=== PATIENT | male | born 1935 | race Hispanic/Latino ===

== ENCOUNTER 2017-08-18 13:00 | Emergency (ER) | payer MEDICARE ==
[2017-08-18 13:43] LABS: Basophils % (Auto) 0.5 % (0.0-1.8); Eosinophils # (Auto) 0.2 K/mm3 (0.0-0.4); Eosinophils % (Auto) 1.8 % (0.0-4.3); Hematocrit 34.3 % (35.5-45.6); Hemoglobin 11.1 gm/dl (11.8-15.2); Lymphocytes # (Auto) 0.9 K/mm3 (1.2-5.4); Lymphocytes % (Auto) 9.7 % (13.4-35.0); Mean Corpuscular HGB Conc 32 % (32-34); Mean Corpuscular Hemoglobin 29 pg (28-32); Mean Corpuscular Volume 90 fl (84-94); Monocytes # (Auto) 0.5 K/mm3 (0.0-0.8); Monocytes % (Auto) 5.6 % (0.0-7.3); Platelet Count 226 K/mm3 (140-440); Red Blood Count 3.83 M/mm3 (3.65-5.03); Red Cell Distribution Width 14.7 % (13.2-15.2)
[2017-08-18 13:59] LABS: Alanine Aminotransferase 7 units/L (7-56); Albumin 3.4 g/dL (3.9-5); BUN/Creatinine Ratio 26; Blood Urea Nitrogen 29 mg/dL (9-20); Calcium 8.8 mg/dL (8.4-10.2); Hemolysis Index 1
[2017-08-18 15:39] VITALS: BP 141/90
[2017-08-18] MEDS ORDERED: NACL 0.9% 1000 ML 1,500 ML IV ONE (16:20)
[2017-08-18 18:05] LABS: Bilirubin,Urine NEG (Negative); Blood,Urine SM (Negative); Color,Urine Red (Yellow); Hyaline Casts,Urine 1 /LPF; Protein,Urine <15 mg/dL mg/dL (Negative); Urobilinogen,Urine < 2.0 mg/dL (<2.0); WBC,Urine < 1.0 /HPF (0.0-6.0)
--- NOTE | 2017-08-18 19:07 | Emergency Department Report ---
- General Chief complaint: Weakness Stated complaint: WEAKNESS/DIZZY Time Seen by Provider: 08/18/17 16:13 Source: patient Mode of arrival: Wheelchair Limitations: No Limitations - History of Present Illness Initial comments: Has been having idiopathic vomiting and diarrhea for the past month. Patient has an appointment with a work checker next week to help work up this issue. His caregiver's concern about his weakness. Patient's normally able to ambulate with a walker, but patient felt too weak to do that earlier today. She is concerned that he could be dehydrated. Patient has no somatic complaints. He is requesting that he be sent home. - Related Data Home Medications Medication Instructions Recorded Confirmed Last Taken Lisinopril 20 mg PO DAILY 08/18/17 08/18/17 Unknown Allergies Allergy/AdvReac Type Severity Reaction Status Date / Time levofloxacin [From Levaquin] Allergy Unknown Verified 08/18/17 18:28 aspirin AdvReac Nausea Verified 08/18/17 13:09 unknown antibiotic AdvReac Unknown Uncoded 08/18/17 13:09 ED Review of Systems ROS: Stated complaint: WEAKNESS/DIZZY Other details as noted in HPI Comment: All other systems reviewed and negative Gastrointestinal: vomiting, diarrhea Neurological: weakness ED Past Medical Hx - Past Medical History Previous Medical History?: Yes Hx Hypertension: Yes - Social History Smoking Status: Current Every Day Smoker Substance Use Type: None - Medications Home Medications: Home Medications Medication Instructions Recorded Confirmed Last Taken Type Lisinopril 20 mg PO DAILY 08/18/17 08/18/17 Unknown History ED Physical Exam - General Limitations: No Limitations General appearance: alert, in no apparent distress - Head Head exam: Present: atraumatic, normocephalic - Eye Eye exam: Present: normal appearance - ENT ENT exam: Present: mucous membranes dry - Neck Neck exam: Present: normal inspection - Respiratory Respiratory exam: Present: normal lung sounds bilaterally. Absent: respiratory distress - Cardiovascular Cardiovascular Exam: Present: regular rate, normal rhythm, other (cap refill: 3s ). Absent: systolic murmur, diastolic murmur, rubs, gallop - GI/Abdominal GI/Abdominal exam: Present: soft. Absent: tenderness - Rectal Rectal exam: Present: deferred - Extremities Exam Extremities exam: Present: normal inspection (gross extremity strength 5/5) - Back Exam Back exam: Present: normal inspection - Neurological Exam Neurological exam: Present: alert, oriented X3 - Psychiatric Psychiatric exam: Present: normal affect, normal mood - Skin Skin exam: Present: warm, dry, intact, normal color. Absent: rash ED Course Vital Signs 08/18/17 08/18/17 13:09 15:38 Temperature 97.8 F Pulse Rate 68 66 Respiratory 18 16 Rate Blood Pressure 166/84 Blood Pressure 141/90 [Left] O2 Sat by Pulse 97 93 Oximetry ED Medical Decision Making - Lab Data Result diagrams: 08/18/17 13:18 08/18/17 13:18 - Medical Decision Making 82-year-old male with history of hypertension of present stool the ER with generalized weakness. Vitals stable presentation. Patient is well-appearing. Patient is clinical evidence of dehydration. Labs show BUN to creatinine ratio of 31. He was given IV fluids. Afterwards, patient felt improved. Educated patient on using protein shakes to help supplement his nutrition. He had a CT scan of his chest and pelvis last week, which was unremarkable. I do not see a reason to repeat it at this time. He'll follow-up with his work checker next week. He ambulated in the ER without difficulty. Clear for discharge. - Differential Diagnosis infection, electrolyte Abnormalities, dehydration, ACS, malignancy, cva Critical care attestation.: If time is entered above; I have spent that time in minutes in the direct care of this critically ill patient, excluding procedure time. ED Disposition Clinical Impression: Dehydration Disposition: DC-01 TO HOME OR SELFCARE Is pt being admited?: No Does the pt Need Aspirin: No Condition: Stable Instructions: Dehydration (ED) Additional Instructions: Please follow up with your work checker for further evaluation of your vomiting/diarrhea. Drink protein shakes like boost or ensure to help keep up your nutrition. Referrals: CALVIN ALEGRE MD [Primary Care Provider] - 3-5 Days
== END 2017-08-18 21:12 | disposition home or self-care (01) ==
LOC: ED 13:00
DX: E86.0 Dehydration (principal); I10 Essential (primary) hypertension; F17.200 Nicotine dependence, unspecified, uncomplicated; Z88.6 Allergy status to analgesic agent; Z88.8 Allergy status to other drugs, medicaments and biological substances
CPT/HCPCS: 36415; 80053; 81001; 85025; 96360; 99283; J7030

== ENCOUNTER 2020-02-18 17:19 | Inpatient (IN) | payer MEDICARE ==
--- NOTE | 2020-02-18 17:27 | Emergency Department Report ---
ED Neuro Deficit HPI - General Stated Complaint: POSS CVA Time Seen by Provider: 02/18/20 17:23 Source: patient, EMS, old records reviewed Mode of arrival: Stretcher Limitations: No Limitations - History of Present Illness Initial Comments: This is an 84-year-old male with history of hypertension, pulmonary fibrosis who presents with left-sided weakness. Since 5:30 AM this morning, patient's had difficulty walking left arm weakness and left leg weakness. He also has decreas ed sensation in the left upper and lower extremities. Daughter called EMS because she was concerned for stroke. Stroke or heart disease. He is allergic to aspirin. According to EMS report, patient has limited ability to ambulate at baseline. -: Sudden, This morning (5:30 AM) Location: left arm, left leg Presenting Symptoms: Present: Weak/Paralyzed One Side History of same: No Place: home Severity: moderate Improves With: time On Anticoagulants: No Context: sudden onset Associated Symptoms: other (Numbness weakness left-sided) - Related Data Home Medications: Home Medications Medication Instructions Recorded Confirmed Last Taken Lisinopril 20 mg PO DAILY 08/18/17 08/18/17 Unknown Allergies/Adverse Reactions: Allergies Allergy/AdvReac Type Severity Reaction Status Date / Time levofloxacin [From Levaquin] Allergy Unknown Verified 08/18/17 18:28 aspirin AdvReac Nausea Verified 08/18/17 13:09 unknown antibiotic AdvReac Unknown Uncoded 08/18/17 13:09 ED Review of Systems ROS: Stated complaint: POSS CVA Other details as noted in HPI Comment: All other systems reviewed and negative Constitutional: denies: fever, malaise Respiratory: denies: cough Cardiovascular: denies: chest pain Gastrointestinal: denies: abdominal pain, nausea, vomiting ED Past Medical Hx - Past Medical History Previous Medical History?: Yes Hx Hypertension: Yes Additional medical history: Pulmonary fibrosis - Social History Smoking Status: Current Every Day Smoker Substance Use Type: None - Medications Home Medications: Home Medications Medication Instructions Recorded Confirmed Last Taken Type Lisinopril 20 mg PO DAILY 08/18/17 08/18/17 Unknown History ED Neuro Physical Exam - General Limitations: No Limitations General appearance: alert, in no apparent distress Suspected Stroke: Yes - Head Head exam: Present: atraumatic, normocephalic - Eye Eye exam: Present: normal appearance - ENT ENT exam: Present: mucous membranes moist - Neck Neck exam: Present: normal inspection, full ROM - Respiratory Respiratory exam: Present: normal lung sounds bilaterally. Absent: respiratory distress, wheezes, rales, rhonchi - Cardiovascular Cardiovascular Exam: Present: regular rate, normal rhythm, normal heart sounds. Absent: systolic murmur, diastolic murmur, rubs, gallop - GI/Abdominal GI/Abdominal exam: Present: soft, normal bowel sounds. Absent: distended, tenderness, guarding, rebound - Rectal Rectal exam: Present: deferred - Extremities Exam Extremities exam: Present: normal inspection - Neurological Exam Neurological exam: Present: alert, oriented X3 - NIHSS Assessment Interval: Baseline 1a. Level of Consciousness: alert/keenly responsive 1b. LOC Questions: answers both correctly 1c. LOC Commands: performs tasks correctly 2. Best Gaze: normal 3. Visual: no visual loss 4. Facial Palsy: normal symmetrical movement 5b. Motor Arm Right: no drift 5a. Motor Arm Left: drift 6a. Motor Leg Left: some gravity effort 6b. Motor Leg Right: no drift 7. Limb Ataxia: present 1 limb 8. Sensory: mild/moderate sensory loss 9. Best Language: no aphasia 10. Dysarthria: normal 11. Extinction/Inattention: visual/tactile inattention Total Score: 6 Stroke Severity: Moderate Stroke - Psychiatric Psychiatric exam: Present: normal affect, normal mood - Skin Skin exam: Present: warm, dry, intact, normal color. Absent: rash ED Course Vital Signs 02/18/20 17:20 Temperature 97.8 F Pulse Rate 80 Respiratory 16 Rate Blood Pressure 161/83 O2 Sat by Pulse 100 Oximetry - Lab Data Result diagrams: 02/18/20 17:37 02/18/20 17:37 Lab Results 02/18/20 02/18/20 02/18/20 Range/Units 17:37 17:37 17:37 WBC 6.6 (4.5-11.0) K/mm3 RBC 3.79 (3.65-5.03) M/mm3 Hgb 11.6 L (11.8-15.2) gm/dl Hct 34.8 L (35.5-45.6) % MCV 92 (84-94) fl MCH 31 (28-32) pg MCHC 33 (32-34) % RDW 15.1 (13.2-15.2) % Plt Count 158 (140-440) K/mm3 Lymph % (Auto) 14.5 (13.4-35.0) % Clarke % (Auto) 6.7 (0.0-7.3) % Eos % (Auto) 1.8 (0.0-4.3) % Baso % (Auto) 0.7 (0.0-1.8) % Lymph # (Auto) 1.0 L (1.2-5.4) K/mm3 Clarke # (Auto) 0.4 (0.0-0.8) K/mm3 Eos # (Auto) 0.1 (0.0-0.4) K/mm3 Baso # (Auto) 0.0 (0.0-0.1) K/mm3 Seg Neutrophils % 76.3 H (40.0-70.0) % Seg Neutrophils # 5.1 (1.8-7.7) K/mm3 PT 12.9 (12.2-14.9) Sec. INR 0.95 (0.87-1.13) APTT 32.8 (24.2-36.6) Sec. Thrombin Time (15.1-19.6) Sec. Sodium 137 (137-145) mmol/L Potassium 4.9 (3.6-5.0) mmol/L Chloride 101.2 (98-107) mmol/L Carbon Dioxide 24 (22-30) mmol/L Anion Gap 17 mmol/L BUN 27 H (9-20) mg/dL Creatinine 1.7 H (0.8-1.3) mg/dL Estimated GFR 38 ml/min BUN/Creatinine Ratio 16 % Glucose 108 H (75-100) mg/dL Calcium 9.3 (8.4-10.2) mg/dL Troponin T < 0.010 (0.00-0.029) ng/mL 02/18/20 Range/Units 17:37 WBC (4.5-11.0) K/mm3 RBC (3.65-5.03) M/mm3 Hgb (11.8-15.2) gm/dl Hct (35.5-45.6) % MCV (84-94) fl MCH (28-32) pg MCHC (32-34) % RDW (13.2-15.2) % Plt Count (140-440) K/mm3 Lymph % (Auto) (13.4-35.0) % Clarke % (Auto) (0.0-7.3) % Eos % (Auto) (0.0-4.3) % Baso % (Auto) (0.0-1.8) % Lymph # (Auto) (1.2-5.4) K/mm3 Clarke # (Auto) (0.0-0.8) K/mm3 Eos # (Auto) (0.0-0.4) K/mm3 Baso # (Auto) (0.0-0.1) K/mm3 Seg Neutrophils % (40.0-70.0) % Seg Neutrophils # (1.8-7.7) K/mm3 PT (12.2-14.9) Sec. INR (0.87-1.13) APTT (24.2-36.6) Sec. Thrombin Time 16.0 (15.1-19.6) Sec. Sodium (137-145) mmol/L Potassium (3.6-5.0) mmol/L Chloride (98-107) mmol/L Carbon Dioxide (22-30) mmol/L Anion Gap mmol/L BUN (9-20) mg/dL Creatinine (0.8-1.3) mg/dL Estimated GFR ml/min BUN/Creatinine Ratio % Glucose (75-100) mg/dL Calcium (8.4-10.2) mg/dL Troponin T (0.00-0.029) ng/mL - EKG Data -: EKG Interpreted by Ia EKG shows normal: sinus rhythm, axis Rate: normal 02/18/20 18:16 EKG obtained 1759 EKG interpreted by ar Normal sinus rhythm rate 90 bpm normal axis prolonged TX interval prolonged QTC no ST elevation nonischemic T wave pattern - Radiology Data Radiology results: report reviewed CT BRAIN: WITHOUT CONTRAST INDICATION / CLINICAL INFORMATION: 84-year-old male. neuro deficits <6hrs or sx present upon awakening. No additional clinical information provided. COMPARISON: None available. FINDINGS: BRAIN/INTRACRANIAL STRUCTURES: Unenhanced CT images of the brain were obtained. There is no evidence of acute abnormality. Pronounced diffuse cerebral atrophy is present. Ventricles and sulci are very prominent in size. Extensive chronic white matter hypoattenuation is present throughout the cerebral hemispheres. There is no evidence of acute large vessel territory ischemic injury, hemorrhage, or mass. There are no abnormal extra-axial fluid collections. Chronic subcortical ischemic changes are present in the thalami and internal capsules bilaterally. Atherosclerotic vascular calcifications are present in the distal internal carotid arteries and vertebral arteries. EXTRACRANIAL STRUCTURES: Unremarkable. IMPRESSION: Pronounced chronic and age-related changes. - Medical Decision Making Prior to patient's arrival, code stroke was activated after receiving EMS report. After conferring with teleneurologist, instructional systems design consultant suspects lacunar infarct. Due to time of onset, patient is not a candidate for TPA therapy. Additionally due to history of dementia and nonambulatory status, thrombectomy is not a consideration. Secondly, patient's presentation is not indicative of large vessel occlusion. Teleneurologist recommended hospital admission for routine stroke treatment and evaluation. I have reviewed labs obtained. CBC chemistry within normal limits with exception of mild CKD. Patient also has normal coagulation profile. Patient is admitted to the hospitalist service in stable condition. Aspirin therapy held due to history of allergy. Antiplatelet therapy recommended by teleneurology consultation. Further treatment will be deferred to hospitalist colleague. - Thrombolytic Inclusion/Exclusion Thrombolytic Exclusion Criteria: Symptom Onset > 3 Hours Critical Care Time: Yes Critical care time in (mins) excluding proc time.: 40 Critical care attestation.: If time is entered above; I have spent that time in minutes in the direct care of this critically ill patient, excluding procedure time. 40 minutes of critical care time excluding procedures were used in the care of the patient. I came immediately to the bedside upon patient's arrival. I obtained history from EMS at the bedside. I discussed treatment plan with the nursing team members. I reviewed electronic record. I kept the family members informed. Patient required multiple interventions and reassessments. ED Disposition Clinical Impression: Acute CVA (cerebrovascular accident) Disposition: DC-09 OP ADMIT IP TO THIS HOSP Is pt being admited?: Yes Does the pt Need Aspirin: No Condition: Stable
--- NOTE | 2020-02-18 17:35 | Consultation ---
History of Present Illness History of present illness: [facility] Date of Service: 02/18/2020 17:13:02 Impression: Left-sided weakness/sensory loss Comments/Sign-Out: Patient presenting with left-sided weakness and sensory loss. Suspect lacunar infarct of the right hemispheric deep brain structures. Metrics: Last Known Well: 02/18/2020 03:00:00 [facility] Notification Time: 02/18/2020 17:13:02 Arrival Time: 02/18/2020 17:19:00 Stamp Time: 02/18/2020 17:13:02 Time First Login Attempt: 02/18/2020 17:16:00 Video Start Time: 02/18/2020 17:16:00 Symptoms: left-sided weakness NIHSS Start Assessment Time: 02/18/2020 17:21:00 Patient is not a candidate for Alteplase/Activase. Patient was not deemed candidate for Alteplase/Activase thrombolytics because of Last Well Known Above 4.5 Hours. Video End Time: 02/18/2020 17:27:00 CT head showed no acute hemorrhage or acute core infarct. Clinical Presentation is not Suggestive of Large Vessel Occlusive Disease. Patient's baseline functional status of dementia and nonambulatory would preclude thrombectomy in any case. ED Physician notified of diagnostic impression and management plan on 02/18/2020 17:33:00 Our recommendations are outlined below. Recommendations: Activate Stroke Protocol Admission/Order Set Stroke/Telemetry Floor Neuro Checks Bedside Swallow Eval DVT Prophylaxis IV Fluids, Normal Saline Head of Bed 30 Degrees Euglycemia and Avoid Hyperthermia (PRN Acetaminophen) Antiplatelet Therapy Recommended Routine Consultation with Inhouse Neurology for Follow up Care Sign Out: Discussed with Emergency Department Provider History of Present Illness: Patient is a 84 year old Male. Patient was brought by EMS for symptoms of left-sided weakness Patient with a history of dementia and HTN. He is non-ambulatory at baseline. He was last noted normal at 0300 by family. This morning on waking at 0530 he was noted to have left-sided weakness. He was also reported to have a fall. He denies speech/language changes, vision change, VACA, CP. Examination: BP(183/102), Pulse(68), Blood Glucose(94) 1A: Level of Consciousness - Alert; keenly responsive + 0 1B: Ask Month and Age - Could Not Answer Either Question Correctly + 2 1C: Blink Eyes & Squeeze Hands - Performs Both Tasks + 0 2: Test Horizontal Extraocular Movements - Normal + 0 3: Test Visual Estrada - No Visual Loss + 0 4: Test Facial Palsy (Use Grimace if Obtunded) - Minor paralysis (flat nasolabial fold, smile asymmetry) + 1 5A: Test Left Arm Motor Drift - Drift, but doesn't hit bed + 1 5B: Test Right Arm Motor Drift - No Drift for 10 Seconds + 0 6A: Test Left Leg Motor Drift - Drift, hits bed + 2 6B: Test Right Leg Motor Drift - No Drift for 5 Seconds + 0 7: Test Limb Ataxia (FNF/Heel-Machado) - No Ataxia + 0 8: Test Sensation - Mild-Moderate Loss: Less Sharp/More Dull + 1 9: Test Language/Aphasia - Normal; No aphasia + 0 10: Test Dysarthria - Normal + 0 11: Test Extinction/Inattention - No abnormality + 0 NIHSS Score: 7 Patient/Family was informed the Neurology Consult would happen via TeleHealth consult by way of interactive audio and video telecommunications and consented to receiving care in this manner. Due to the immediate potential for life-threatening deterioration due to underlying acute neurologic illness, I spent 30 minutes providing critical care. This time includes time for face to face visit via telemedicine, review of medical records, imaging studies and discussion of findings with providers, the patient and/or family. Dr Jose Enrique [facility] Case [id number] Medications and Allergies Allergies Allergy/AdvReac Type Severity Reaction Status Date / Time levofloxacin [From Levaquin] Allergy Unknown Verified 08/18/17 18:28 aspirin AdvReac Nausea Verified 08/18/17 13:09 unknown antibiotic AdvReac Unknown Uncoded 08/18/17 13:09 Home Medications Medication Instructions Recorded Confirmed Last Taken Type Lisinopril 20 mg PO DAILY 08/18/17 08/18/17 Unknown History
[2020-02-18 17:47] LABS: Basophils % (Auto) 0.7 % (0.0-1.8); Eosinophils # (Auto) 0.1 K/mm3 (0.0-0.4); Eosinophils % (Auto) 1.8 % (0.0-4.3); Hematocrit 34.8 % (35.5-45.6); Hemoglobin 11.6 gm/dl (11.8-15.2); Lymphocytes % (Auto) 14.5 % (13.4-35.0); Mean Corpuscular HGB Conc 33 % (32-34); Mean Corpuscular Volume 92 fl (84-94); Monocytes # (Auto) 0.4 K/mm3 (0.0-0.8); Monocytes % (Auto) 6.7 % (0.0-7.3); Platelet Count 158 K/mm3 (140-440); Red Blood Count 3.79 M/mm3 (3.65-5.03); Red Cell Distribution Width 15.1 % (13.2-15.2)
[2020-02-18 17:57] LABS: INR 0.95 (0.87-1.13)
[2020-02-18 17:58] LABS: Partial Thromboplastin Time 32.8 Sec. (24.2-36.6)
[2020-02-18 18:04] LABS: BUN/Creatinine Ratio 16; Blood Urea Nitrogen 27 mg/dL (9-20); Calcium 9.3 mg/dL (8.4-10.2); Hemolysis Index 7
--- NOTE | 2020-02-18 18:14 | Cat Scan Report ---
CT BRAIN: WITHOUT CONTRAST INDICATION / CLINICAL INFORMATION: 84-year-old male. neuro deficits <6hrs or sx present upon awakening. No additional clinical informati on provided. COMPARISON: None available. FINDINGS: BRAIN/INTRACRANIAL STRUCTURES: Unenhanced CT images of the brain were obtained. There is no evidence of acute abnormality. Pronounced diffuse cerebral atrophy is present. Ventricles and sulci are very prominent in size. Exte nsive chronic white matter hypoattenuation is present throughout the cerebral hemispheres. There is no evidence of acute large vessel territory ischemic injury, hemorrhage, or mass. There are no abnormal extra-axial fluid collections. Chronic subcortical ischemic changes are present in the thalami and internal capsules bilaterally. Atherosclerotic vascular calcifications are present in the distal internal carotid arteries and verte bral arteries. EXTRACRANIAL STRUCTURES: Unremarkable. IMPRESSION: Pronounced chronic and age-related changes. Notification: Emergency department ARTIE Macedo at [address] scans at this location are performed using dose reduction to ALARA by means of automated expos ure control. Signer Name: James Durand MD Signed: 02/18/2020 6:09 PM Workstation Name: [id number]
[2020-02-18] MEDS ORDERED: PROMETHAZINE 25 MG RECT SUPP PR PRN (18:20)
[2020-02-18] MEDS ORDERED: METOCLOPRAMIDE 10 MG TAB PO PRN (18:20)
[2020-02-18] MEDS ORDERED: ONDANSETRON 4 MG/2 ML INJ IV PRN (18:20)
[2020-02-18] MEDS ORDERED: MAGNESIUM HYDROXIDE (MOM) ORAL LIQD UDC PO PRN (18:20)
--- NOTE | 2020-02-18 18:20 | History and Physical Report ---
History of Present Illness Chief complaint: I feel weak History of present illness: 84 YO Male with Vascular Dementia, Cerebral Atherosclerosis on Antiplatelet therapy, Nicotine Dependence, HTN, Pulmonary Fibrosis presents to ED for evaluation. Patient states that she was in her usual state of health around bedtime at around 2100 hrs. and again upon awakening at around 0300 hrs. Patient also reports that she awoke again from sleep at approximately 0530 hrs. and was found to have left arm and leg weakness with difficulty ambulating. Patient also reports dense decrease sensation in the left upper and lower extr emities. EMS was notified and upon arrival the patient was found to have a neurologic deficit. A code stroke was called and the patient was transported to [facility] for further care and evaluation. Patient seen and evaluated in the emergency department. Lab and imaging studies were reviewed. Patient was found to have symptoms consistent with acute CVA. Patient placed in observation status and admitted to telemetry for further care and evaluation due to increased risk of worsening symptoms. Teleneurology was consulted in the ED and the patient was deemed not a candidate for TPA. Patient initiated on antiplatelet therapy. Patient denies fever, chills, chest pain, palpitations, productive cough, skin rash, recent ill contacts, trauma, or known exposure to COVID-19. All medication listed at time of admission has been reconciled. Advanced care planning conducted in the emergency department. No prior admission for review. Past History Past Medical History: hypertension, other (See HPI) Past Surgical History: No surgical history, Other (Reviewed) Social history: , smoking Family history: hypertension Medications and Allergies Allergies Allergy/AdvReac Type Severity Reaction Status Date / Time levofloxacin [From Levaquin] Allergy Unknown Verified 08/18/17 18:28 aspirin AdvReac Nausea Verified 08/18/17 13:09 unknown antibiotic AdvReac Unknown Uncoded 08/18/17 13:09 Home Medications Medication Instructions Recorded Confirmed Last Taken Type Lisinopril 20 mg PO DAILY 08/18/17 08/18/17 Unknown History Review of Systems Constitutional: no weight loss, no weight gain, no fever, no chills, no sweats Ears, nose, mouth and throat: no ear pain, no ear discharge, no tinnitis, no nasal discharge Cardiovascular: no chest pain, no orthopnea, no palpitations, no rapid/irregular heart beat, no edema, no syncope Respiratory: no cough, no cough with sputum, no excessive sputum, no shortness of breath, no dyspnea on exertion Gastrointestinal: no abdominal pain, no nausea, no vomiting, no diarrhea, no constipation Genitourinary Male: no hematuria, no flank pain, no discharge, no urinary frequency, no urinary hesitancy Rectal: no pain, no incontinence, no bleeding Musculoskeletal: no neck stiffness, no neck pain, no arm numbness/tingling, no low back pain, no leg numbness/tingling Integumentary: no rash, no pruritis, no redness, no sores, no jaundice, no boils Neurological: weakness, numbness, lack of coordination, change in speech, gait dysfunction, motor disturbance, no seizures, no syncope, no tremors Psychiatric: no memory loss, no change in sleep habits, no hypersomnia, no change in libido, no suicidal ideation Endocrine: no cold intolerance, no heat intolerance, no polyphagia, no excessive thirst, no polyuria Hematologic/Lymphatic: no easy bruising, no easy bleeding, no lymphadenopathy, no lymphedema Allergic/Immunologic: no urticaria, no wheezing, no anaphylaxis, no angioedema Exam - Constitutional Vitals: Temp Pulse Resp BP Pulse Ox 97.8 F 80 16 161/83 100 02/18/20 17:20 02/18/20 17:20 02/18/20 17:20 02/18/20 17:20 02/18/20 17:20 General appearance: Present: mild distress - EENT Eyes: Present: PERRL ENT: hearing intact, clear oral mucosa - Neck Neck: Present: supple, normal ROM - Respiratory Respiratory effort: normal Respiratory: bilateral: CTA - Cardiovascular Heart Sounds: Present: S1 & S2. Absent: rub, click - Extremities Extremities: pulses symmetrical, No edema Peripheral Pulses: within normal limits - Abdominal General gastrointestinal: Present: soft, non-tender, non-distended, normal bowel sounds Male genitourinary: Present: normal - Integumentary Integumentary: Present: clear, warm, dry - Musculoskeletal Musculoskeletal: left sided weakness - Psychiatric Psychiatric: appropriate mood/affect, intact judgment & insight - Neurologic Neurologic: CNII-XII intact, focal deficits, no moves all extremities, no gait normal HEART Score - HEART Score Troponin: Troponin T < 0.010 ng/mL (0.00-0.029) 02/18/20 17:37 Results - Labs CBC & Chem 7: 02/18/20 17:37 02/18/20 17:37 Labs: Abnormal lab results 02/18/20 02/18/20 Range/Units 17:37 17:37 Hgb 11.6 L (11.8-15.2) gm/dl Hct 34.8 L (35.5-45.6) % Lymph # (Auto) 1.0 L (1.2-5.4) K/mm3 Seg Neutrophils % 76.3 H (40.0-70.0) % BUN 27 H (9-20) mg/dL Creatinine 1.7 H (0.8-1.3) mg/dL Glucose 108 H (75-100) mg/dL Assessment and Plan - Patient Problems (1) Acute CVA (cerebrovascular accident) Current Visit: Yes Status: Acute Plan to address problem: CVA protocol: Admit to telemetry, CT head, neuro check, seizure precautions, aspiration precautions, fall precautions, physical therapy consulted, Occupational Therapy consulted, speech therapy consulted, antiplatelet therapy, lipid panel, statin therapy, teleneurology consulted in ED. (2) Nicotine dependence Current Visit: Yes Status: Acute Qualifiers: Nicotine product type: cigarettes Substance use status: in withdrawal Qualified Code(s): F17.213 - Nicotine dependence, cigarettes, with withdrawal Plan to address problem: Smoking cessation counseling, supportive care, behavior change counseling, +15 minutes (3) Pulmonary fibrosis Current Visit: Yes Status: Acute Plan to address problem: Supportive care, continue medical management, outpatient pulmonary follow-up, smoking cessation. (4) Hypertension Current Visit: Yes Status: Acute Plan to address problem: Monitor blood pressure every shift, continue medical management, permissive hypertension overnight. (5) Vascular dementia Current Visit: Yes Status: Acute Qualifiers: Dementia behavioral disturbance: without behavioral disturbance Qualified Code(s): F01.50 - Vascular dementia without behavioral disturbance Plan to address problem: Verbal prompting, verbal redirection, benzodiazepine therapy as clinically indicated. (6) Cerebral atherosclerosis Current Visit: Yes Status: Acute Plan to address problem: Supportive care, risk factor reduction, antiplatelet therapy. (7) DVT prophylaxis Current Visit: Yes Status: Acute Plan to address problem: SCD to bilateral lower extremities while in bed, (8) Advance care planning Current Visit: Yes Status: Acute Plan to address problem: Disease education conducted, prognosis discussed, patient is full code, patient knowledges understanding and agreement with care plan, +30 minutes
[2020-02-19] MEDS: CLOPIDOGREL 75 MG TAB PO SCH (09:56)
--- NOTE | 2020-02-19 13:11 | Progress Note ---
Assessment and Plan - Patient Problems (1) Acute CVA (cerebrovascular accident) Current Visit: Yes Status: Acute Plan to address problem: Patient has acute cerebrovascular accident Left hemiplegia improving Continue Plavix and aspirin (2) Hypertension Current Visit: Yes Status: Chronic Qualifiers: Hypertension type: essential hypertension Qualified Code(s): I10 - Essential (primary) hypertension Plan to address problem: Continue blood pressure medications and adjust medications (3) Acute kidney injury Current Visit: Yes Status: Acute Plan to address problem: IV fluids for now Secondary to vasomotor nephropathy (4) DVT prophylaxis Current Visit: Yes Status: Acute Plan to address problem: On heparin and GI prophylaxis Subjective Date of service: 02/19/20 Principal diagnosis: Acute CVA with left hemiplegia Interval history: 84 YO Male with Vascular Dementia, Cerebral Atherosclerosis on Antiplatelet the rapy, Nicotine Dependence, HTN, Pulmonary Fibrosis presents to ED for evaluation. Patient states that she was in her usual state of health around bedtime at around 2100 hrs. and again upon awakening at around 0300 hrs. Patient also reports that she awoke again from sleep at approximately 0530 hrs. and was found to have left arm and leg weakness with difficulty ambulating. Patient also reports dense decrease sensation in the left upper and lower extremities. EMS was notified and upon arrival the patient was found to have a neurologic deficit. A code stroke was called and the patient was transported to [facility] for further care and evaluation. Patient seen and evaluated in the emergency department. Lab and imaging studies were reviewed. Patient was found to have symptoms consistent with acute CVA. Patient placed in observation status and admitted to telemetry for further care and evaluation due to increased risk of worsening symptoms. Teleneurology was consulted in the ED and the patient was deemed not a candidate for TPA. Patient initiated on antiplatelet therapy. Patient denies fever, chills, chest pain, palpitations, productive cough, skin rash, recent ill contacts, trauma, or known exposure to COVID-19. All medication listed at time of admission has been reconciled. Ad vanced care planning conducted in the emergency department. No prior admission for review. 02/19/2020 patient has 3/5 power in the left upper extremity and 4/5 power in the left lower extremity patient is alert and oriented Objective - Constitutional Vitals: Vital Signs - 12hr 02/19/20 02/19/20 02/19/20 03:24 07:36 08:13 Temperature 98.0 F 97.3 F L Pulse Rate 56 L 51 L Respiratory 18 18 16 Rate Blood Pressure 138/72 140/66 O2 Sat by Pulse 97 98 98 Oximetry 02/19/20 12:00 Temperature Pulse Rate 69 Respiratory Rate Blood Pressure O2 Sat by Pulse Oximetry General appearance: Present: no acute distress, well-nourished - EENT Eyes: PERRL, EOM intact ENT: hearing intact, clear oral mucosa Ears: bilateral: normal - Neck Neck: supple, normal ROM - Respiratory Respiratory effort: normal Respiratory: bilateral: CTA - Breasts Breasts: normal - Cardiovascular Heart rate: 78 Rhythm: regular Heart Sounds: Present: S1 & S2. Absent: gallop, rub Extremities: pulses intact, No edema, normal color, Full ROM - Gastrointestinal General gastrointestinal: Present: soft, non-tender, non-distended, normal bowel sounds - Genitourinary Male genitourinary: normal - Integumentary Integumentary: clear, warm, dry - Musculoskeletal Musculoskeletal: strength equal bilaterally, left sided weakness (4/5 power in left lower extremity and 3/5 power in left upper extremity) - Neurologic Neurologic: focal deficits (Left hemiplegia with 4 x 5 power in left lower extremity and 3/5 power in the right left upper extremity otherwise alert and oriented), moves all extremities - Psychiatric Psychiatric: memory intact, appropriate mood/affect, intact judgment & insight - Labs CBC & Chem 7: 02/18/20 17:37 02/18/20 17:37 Labs: Abnormal lab results 02/18/20 02/18/20 02/18/20 Range/Units 17:37 17:37 18:12 Hgb 11.6 L (11.8-15.2) gm/dl Hct 34.8 L (35.5-45.6) % Lymph # (Auto) 1.0 L (1.2-5.4) K/mm3 Seg Neutrophils % 76.3 H (40.0-70.0) % BUN 27 H (9-20) mg/dL Creatinine 1.7 H (0.8-1.3) mg/dL Glucose 108 H (75-100) mg/dL POC Glucose 111 H (70-105) HEART Score - HEART Score Troponin: Troponin T < 0.010 ng/mL (0.00-0.029) 02/18/20 17:37
[2020-02-19] MEDS: SODIUM CHLORIDE 0.9% 1000 ML 1,000 ML IV SCH (14:12)
[2020-02-20] MEDS: SODIUM CHLORIDE 0.9% 1000 ML 1,000 ML IV SCH (01:08)
[2020-02-20] MEDS: CLOPIDOGREL 75 MG TAB PO SCH (10:12)
[2020-02-20] MEDS ORDERED: LORazepam 2 MG/ML VIAL IV SCH (10:30)
--- NOTE | 2020-02-20 11:53 | Magnetic Resonance Report ---
NONENHANCED MR SCAN OF THE BRAIN: INDICATION / CLINICAL INFORMATION: Left-sided weakness TECHNIQUE: Multiplanar, multisequence MR images of the brain obtained. COMPARISON: CT scan of the head from 02/18/2020 FINDINGS: BRAIN / INTRACRANIAL CONTENTS: Approximately centimeter sized subacute right basal ganglia infarction involving right thalamus and posterior limb of right internal capsule; infarction more than 12 level s old (increased T2 signal intensity) but less than 3 days old (low ADC value) no hemorrhagic changes Chronic lacunae are also seen in the right basal ganglia in the right globus pallidus and right putam en/external capsule. Increased signal intensity in the right cerebral peduncle and in the right side of mary probably due to subacute wallerian degeneration Chronic ischemic changes in the mary; confluent periventricular and deep hemispheric white matter hyp erintensities (Fazekas 3) due to chronic small vessel disease CRANIOCERVICAL JUNCTION: No significant abnormality. VASCULAR FLOW-VOIDS: No significant abnormality. ORBITS: No significant abnormality of visualized orbits. SINUSES / MASTOIDS: No significant abnormality of visualized sinuses and mastoid air cells. ADDITIONAL FINDINGS: None. IMPRESSION: Nonhemorrhagic subacute lacunar infarction in the right basal ganglia (thalamus extending towards the posterior limb of right internal capsule Signer Name: Bob Chery MD Signed: 02/20/2020 11:49 AM Workstation Name: [id number]
--- NOTE | 2020-02-20 13:46 | Vascular Lab Report ---
BILATERAL CAROTID DOPPLER ULTRASOUND INDICATION : stroke TECHNIQUE: Grayscale and color Doppler imaging performed through the neck. COMPARISON: None FINDINGS: Right: There is minimal partially calcified plaques in the carotid bulb and proximal ICA. Peak syst olic velocity in the CCA is 43 cm/s with end-diastolic velocity of 8 cm/s. Peak systolic velocity in the proximal ICA is 51 cm/s with end-diastolic velocity of 11 cm/s. ICA to CCA ratio is less than 2. There is antegrade flow in the ECA and the vertebral artery. Left: There is mild partially calcified plaques in the proximal ICA. Peak systolic velocity in the CC A is 49 cm/s with end-diastolic velocity of 12 cm/s. Peak systolic velocity in the proximal ICA is 70 cm/s with end-diastolic velocity of 25 cm/s. ICA to CCA ratio is less than 2. There is antegrade fl ow in the ECA and the vertebral artery. IMPRESSION: No hemodynamically significant stenosis by NASCET criteria. Doppler velocities indicate l ess than 50% luminal narrowing throughout both carotid systems. Signer Name: Richard Sahu Jr, MD Signed: 02/20/2020 1:42 PM Workstation Name: [id number]
--- NOTE | 2020-02-20 16:32 | Progress Note ---
Assessment and Plan - Patient Problems (1) Acute CVA (cerebrovascular accident) Current Visit: Yes Status: Acute Plan to address problem: Patient has acute cerebrovascular accident Left hemiplegia improving Continue Plavix and aspirin (2) Hypertension Current Visit: Yes Status: Chronic Qualifiers: Hypertension type: essential hypertension Qualified Code(s): I10 - Essential (primary) hypertension Plan to address problem: Continue blood pressure medications and adjust medications (3) DVT prophylaxis Current Visit: Yes Status: Acute Plan to address problem: On heparin and GI prophylaxis (4) Acute kidney injury Current Visit: Yes Status: Acute Plan to address problem: IV fluids for now Secondary to vasomotor nephropathy (5) Discharge planning issues Current Visit: Yes Status: Acute Plan to address problem: Patient may be discharged after neurology has seen the patient with home health and physical therapy and Occupational Therapy at home Subjective Date of service: 02/20/20 Principal diagnosis: Acute CVA with left-sided weakness Interval history: 84 YO Male with Vascular Dementia, Cerebral Atherosclerosis on Antiplatelet therapy, Nicotine Dependence, HTN, Pulmonary Fibrosis presents to ED for evaluation. Patient states that she was in her usual state of health around bedtime at around 2100 hrs. and again upon awakening at around 0300 hrs. Patient also reports that she awoke again from sleep at approximately 0530 hrs. and was found to have left arm and leg weakness with difficulty ambulating. Patient also reports dense decrease sensation in the left upper and lower extremities. EMS was notified and upon arrival the patient was found to have a neurologic deficit. A code stroke was called and the patient was transported to [facility] for further care and evaluation. Patient seen and evaluated in the emergency department. Lab and imaging studies were reviewed. Patient was found to have symptoms consistent with acute CVA. Patient placed in observation status and admitted to telemetry for further care and evaluation due to increased risk of worsening symptoms. Teleneurology was consulted in the ED and the patient was deemed not a candidate for TPA. Patient initiated on antiplatelet therapy. Patient denies fever, chills, chest pain, palpitations, productive cough, skin rash, recent ill contacts, trauma, or known exposure to COVID-19. All medication listed at time of admission has been reconciled. Advanced care planning conducted in the emergency department. No prior admissio n for review. 02/19/2020 patient has 3/5 power in the left upper extremity and 4/5 power in the left lower extremity patient is alert and oriented 02/20/2020 patient has good improvement in the left upper extremity and left lower extremity weakness Objective - Constitutional Vitals: Vital Signs - 12hr 02/20/20 02/20/20 02/20/20 07:48 08:00 08:17 Temperature 97.9 F Pulse Rate 64 Respiratory 18 Rate Blood Pressure 160/85 O2 Sat by Pulse 98 97 95 Oximetry 02/20/20 12:00 Temperature Pulse Rate 64 Respiratory Rate Blood Pressure O2 Sat by Pulse Oximetry General appearance: Present: no acute distress, well-nourished - EENT Eyes: PERRL, EOM intact ENT: hearing intact, clear oral mucosa Ears: bilateral: normal - Neck Neck: supple, normal ROM - Respiratory Respiratory effort: normal Respiratory: bilateral: CTA - Breasts Breasts: normal - Cardiovascular Heart rate: 78 Rhythm: regular Heart Sounds: Present: S1 & S2. Absent: gallop, rub Extremities: pulses intact, No edema, normal color, Full ROM - Gastrointestinal General gastrointestinal: Present: soft, non-tender, non-distended, normal bowel sounds - Genitourinary Male genitourinary: normal - Integumentary Integumentary: clear, warm, dry - Musculoskeletal Musculoskeletal: left sided weakness - Neurologic Neurologic: focal deficits (Left hemiparesis), moves all extremities - Psychiatric Psychiatric: memory intact, appropriate mood/affect, intact judgment & insight - Labs CBC & Chem 7: 02/18/20 17:37 02/18/20 17:37 HEART Score - HEART Score Troponin: Troponin T < 0.010 ng/mL (0.00-0.029) 02/18/20 17:37
[2020-02-21] MEDS ORDERED: SODIUM CHLORIDE 0.9% 1000 ML 1,000 ML IV SCH (08:00)
[2020-02-21] MEDS: LISINOPRIL 20 MG TAB PO SCH (09:56)
[2020-02-21] MEDS: CLOPIDOGREL 75 MG TAB PO SCH (09:57)
[2020-02-21] MEDS: METOPROLOL SUCCINATE XL 50 MG TAB PO SCH (09:57)
[2020-02-21] MEDS ORDERED: NON-FORMULARY EACH (Lisinopril 20 MG) PO SCH (10:00)
[2020-02-21] MEDS ORDERED: METOPROLOL TARTRATE 50 MG TAB PO SCH (10:00)
--- NOTE | 2020-02-21 14:07 | Progress Note ---
Assessment and Plan Assessment and plan: 84 YO Male with Vascular Dementia, Cerebral Atherosclerosis on Antiplatelet therapy, Nicotine Dependence, HTN, Pulmonary Fibrosis presents to ED for evaluation. Patient states that she was in her usual state of health around bedtime at around 2100 hrs. and again upon awakening at around 0300 hrs. Daysi gimenez also reports that she awoke again from sleep at approximately 0530 hrs. and was found to have left arm and leg weakness with difficulty ambulating. Patient also reports dense decrease sensation in the left upper and lower extremities. EMS was notified and upon arrival the patient was found to have a neurologic deficit. A code stroke was called and the patient was transported to [facility] for further care and evaluation. Patient seen and evaluated in the emergency department. Lab and imaging studies were reviewed. Patient was found to have symptoms consistent with acute CVA. Patient placed in observation status and admitted to telemetry for further care and evaluation due to increased risk of worsening symptoms. Teleneurology was consulted in the ED and the patient was deemed not a candidate for TPA. Patient initiated on antiplatelet therapy. Patient denies fever, chills, chest pain, palpitations, productive cough, skin rash, recent ill contacts, trauma, or known exposure to COVID-19. All medication listed at time of admission has been reconciled. Advanced care planning conducted in the emergency department. No prior admission for review. 02/19/2020 patient has 3/5 power in the left upper extremity and 4/5 power in the left lower extremity patient is alert and oriented 02/20/2020 patient has good improvement in the left upper extremity and left lower extremity weakness. PT evaluation pending. MRI brain shows subacute right basal ganglia infarct. Echo shows no PFO, shunt or stenosis. US doppler carotids negative for significant stenosis. 02/20. PT evaluation - rec subacute rehab. He has discomfort around the lower abdomen. Bladder scan showed residual volume of 400cc. Patient subesquently passed urine without intervention. I will start him on flomax for now. - Patient Problems -- Acute CVA (cerebrovascular accident) Current Visit: Yes Status: Acute Plan to address problem: Left hemiplegia improved MRI brain shows subacute infarct in the right basal ganglia. Echo - negative bubble study. Continue Plavix(patient is allergic to aspirin) and statins PT - recs subacute rehab Neurology evaluation CTA head and neck not done due to renal disease --Hypertension Current Visit: Yes Status: Chronic Qualifiers: Hypertension type: essential hypertension Qualified Code(s): I10 - Essential (primary) hypertension Plan to address problem: BP still elevated Added amlodipine today -- Acute kidney injury Current Visit: Yes Status: Acute Plan to address problem: IV fluids for now Secondary to vasomotor nephropathy --Systolic heart failure Current Visit: Yes Status: Acute Plan to address problem: Continue current management Afterload reduction with ACEI Toprol low dose Cardiology follow up after discharge -- DVT prophylaxis Current Visit: Yes Status: Acute Plan to address problem: On heparin and GI prophylaxis -- Discharge planning issues Current Visit: Yes Status: Acute Plan to address problem: Pending neurology evaluation History Interval history: Patient seen and examined at bedside. Could not get PT yesterday. Plan for PT today. He has some discomfort around the lower abdomen - will get a bladder scan. Hospitalist Physical - Constitutional Vitals: Temp Pulse Resp BP Pulse Ox 98.1 F 93 H 20 169/91 98 02/21/20 07:47 02/21/20 12:00 02/21/20 08:00 02/21/20 09:56 02/21/20 08:00 General appearance: Present: no acute distress, well-nourished - EENT Eyes: Present: PERRL - Respiratory Respiratory: bilateral: CTA - Cardiovascular Heart Sounds: Present: S1 & S2 - Extremities Extremities: No edema - Abdominal General gastrointestinal: soft, non-tender, non-distended, normal bowel sounds - Psychiatric Psychiatric: appropriate mood/affect - Allied Health Allied health notes reviewed: nursing, case management HEART Score - HEART Score Troponin: Troponin T < 0.010 ng/mL (0.00-0.029) 02/18/20 17:37 Results - Labs CBC & Chem 7: 02/18/20 17:37 02/18/20 17:37 Labs: Laboratory Last Values WBC 6.6 K/mm3 (4.5-11.0) 02/18/20 17:37 RBC 3.79 M/mm3 (3.65-5.03) 02/18/20 17:37 Hgb 11.6 gm/dl (11.8-15.2) L 02/18/20 17:37 Hct 34.8 % (35.5-45.6) L 02/18/20 17:37 MCV 92 fl (84-94) 02/18/20 17:37 MCH 31 pg (28-32) 02/18/20 17:37 MCHC 33 % (32-34) 02/18/20 17:37 RDW 15.1 % (13.2-15.2) 02/18/20 17:37 Plt Count 158 K/mm3 (140-440) 02/18/20 17:37 Lymph % (Auto) 14.5 % (13.4-35.0) 02/18/20 17:37 Gaines % (Auto) 6.7 % (0.0-7.3) 02/18/20 17:37 Eos % (Auto) 1.8 % (0.0-4.3) 02/18/20 17:37 Baso % (Auto) 0.7 % (0.0-1.8) 02/18/20 17:37 Lymph # (Auto) 1.0 K/mm3 (1.2-5.4) L 02/18/20 17:37 Gaines # (Auto) 0.4 K/mm3 (0.0-0.8) 02/18/20 17:37 Eos # (Auto) 0.1 K/mm3 (0.0-0.4) 02/18/20 17:37 Baso # (Auto) 0.0 K/mm3 (0.0-0.1) 02/18/20 17:37 Seg Neutrophils % 76.3 % (40.0-70.0) H 02/18/20 17:37 Seg Neutrophils # 5.1 K/mm3 (1.8-7.7) 02/18/20 17:37 PT 12.9 Sec. (12.2-14.9) 02/18/20 17:37 INR 0.95 (0.87-1.13) 02/18/20 17:37 APTT 32.8 Sec. (24.2-36.6) 02/18/20 17:37 Thrombin Time 16.0 Sec. (15.1-19.6) 02/18/20 17:37 Sodium 137 mmol/L (137-145) 02/18/20 17:37 Potassium 4.9 mmol/L (3.6-5.0) 02/18/20 17:37 Chloride 101.2 mmol/L (98-107) 02/18/20 17:37 Carbon Dioxide 24 mmol/L (22-30) 02/18/20 17:37 Anion Gap 17 mmol/L 02/18/20 17:37 BUN 27 mg/dL (9-20) H 02/18/20 17:37 Creatinine 1.7 mg/dL (0.8-1.3) H 02/18/20 17:37 Estimated GFR 38 ml/min 02/18/20 17:37 BUN/Creatinine Ratio 16 % 02/18/20 17:37 Glucose 108 mg/dL (75-100) H 02/18/20 17:37 POC Glucose 79 (70-105) 02/20/20 08:07 Calcium 9.3 mg/dL (8.4-10.2) 02/18/20 17:37 Troponin T < 0.010 ng/mL (0.00-0.029) 02/18/20 17:37 - Diagnostic Impressions Diagnostic Impressions: Echocardiogram 02/18/20 18:21 Transthoracic Echocardiogram Indication: Stroke BP: 128/77 HR: 86 Conclusions *The left ventricular size is mild to moderately dilated. *Mild concentric left ventricular hypertrophy is observed. *Global left ventricular systolic function is moderate to severely decreased. *The estimated ejection fraction is 30-35%. *There is mild dilatation of the ascending aorta which measures 4.5 cm. The aortic root size is normal. *There is mild aortic regurgitation. *There is mild mitral regurgitation. *There is mild tricuspid regurgitation. *There is evidence of mild pulmonary hypertension. *The right ventricular systolic pressure is calculated at 34 mmHg. *A patent foramen ovale is not demonstrated by agitated saline contrast. Findings Left Ventricle: The left ventricular size is mild to moderately dilated. Mild concentric left ventricular hypertrophy is observed. Global left ventricular systolic function is moderate to severely decreased. The estimated ejection fraction is 30-35%. Left Atrium: The left atrium is mildly dilated. Right Ventricle: The right ventricle is slightly dilated. The right ventricular global systolic function is normal. Right Atrium: The right atrial cavity size is normal. A patent foramen ovale is not demonstrated by agitated saline contrast. Aortic Valve: The aortic valve is trileaflet. The aortic valve leaflets are mildly thickened. There is mild aortic regurgitation. There is no evidence of aortic stenosis. Mitral Valve: The mitral valve leaflets are mildly thickened. There is mild mitral regurgitation. There is no evidence of mitral stenosis. Tricuspid Valve: There is mild tricuspid regurgitation. The right ventricular systolic pressure is calculated at 34 mmHg. There is evidence of mild pulmonary hypertension. Pulmonic Valve: There is mild pulmonic regurgitation. Pericardium: There is no pericardial effusion. Aorta: There is mild dilatation of the ascending aorta. There is no dilatation of the aortic root. Venous: The inferior vena cava appears normal in size. Contrast: Intravenous agitated saline contrast was used to assess intracardiac shunting. Measurements Chambers 2D Name Value Normal Range IVSd (2D) 1 cm (0.6 - 1.1) LVPWd (2D) 0.97 cm (0.6 - 1.1) LVIDd (2D) 4.88 cm (3.7 - 5.6) LVIDs (2D) 3.72 cm (2 - 3.8) LV FS (2D) 23.84 % - EF Teichholz (2D) 47.42 % - Ao root diameter (2D) 3.55 cm (2 - 3.7) Volumes/Mass Name Value Normal Range LA ESV SP 4CH (A/L) 17.82 ml - LA ESV SP 2CH (A/L) 33.01 ml - LA ESV BP (A/L) 26.94 ml - LA ESV BP (A/L) index 15.57 ml/m2 - LA ESV SP 4CH (MOD) 17.8 ml - LA ESV SP 2CH (MOD) 30.25 ml - LA ESV BP (MOD) 25.48 ml - LA ESV BP (MOD) index 14.73 ml/m2 - Aortic Valve Name Value Normal Range AV Vmax 0.98 m/sec - AV VTI 20.8 cm - AV peak gradient 3.87 mmHg - AV mean gradient 2.15 mmHg - LVOT diameter 2.14 cm - LVOT Vmax 0.77 m/sec - LVOT VTI 12.22 cm - LVOT peak gradient 2.38 mmHg - LVOT mean gradient 1.25 mmHg - SV LVOT 43.78 ml - JAIME (continuity Vmax) 2.81 cm2 - JAIME (continuity VTI) 2.1 cm2 - Ascending Ao 4.53 cm - Tricuspid Valve Name Value Normal Range TR Vmax 2.78 m/sec - TR peak gradient 31 mmHg - RAP 3 mmHg - RVSP 34 mmHg - Pulmonic Valve/Qp:Qs Name Value Normal Range PV Vmax 0.78 m/sec - PV peak gradient 2.4 mmHg - PV acceleration time 79.92 msec - Wolff/IV: Voiding Method Urinal IV Catheter Type [Left Forearm INT / Saline Lock ] IV Catheter Type [Right Peripheral IV Antecubital] Active Medications - Current Medications Current Medications: Generic Name Dose Route Start Last Admin Trade Name Freq PRN Reason Stop Dose Admin Acetaminophen 650 mg 02/18/20 18:20 Tylenol PO Q4H PRN Pain, Mild (1-3) Amlodipine Besylate 10 mg 02/21/20 15:00 Amlodipine PO QDAY CELE Atorvastatin Calcium 40 mg 02/18/20 22:00 02/20/20 21:24 Lipitor PO 40 mg QHS CELE Administration Bisacodyl 10 mg 02/18/20 18:20 Dulcolax KS QDAY PRN Constipation Clopidogrel Bisulfate 75 mg 02/19/20 10:00 02/21/20 09:57 Plavix PO 75 mg QDAY CELE Administration Sodium Chloride 1,000 mls @ 75 mls/hr 02/21/20 08:00 Nacl 0.9% 1000 Ml IV DIRECT CELE Lisinopril 20 mg 02/21/20 10:00 02/21/20 09:56 Zestril PO 20 mg QDAY CELE Administration Magnesium Hydroxide 30 ml 02/18/20 18:20 Milk Of Magnesia PO Q4H PRN Constipation Metoclopramide HCl 5 mg 02/18/20 18:20 Reglan PO Q6H PRN Nausea And Vomiting Metoprolol Succinate 50 mg 02/21/20 10:00 02/21/20 09:57 Metoprolol Xl PO 50 mg QDAY CELE Administration Ondansetron HCl 4 mg 02/18/20 18:20 Zofran IV Q8H PRN Nausea And Vomiting Promethazine HCl 25 mg 02/18/20 18:20 Phenergan KS Q6H PRN Nausea And Vomiting Sodium Chloride 10 ml 02/18/20 18:20 Sodium Chloride Flush Syringe 10 Ml IV PRN PRN LINE FLUSH
[2020-02-21] MEDS: amLODIPine 10 MG TAB PO SCH (14:21)
--- NOTE | 2020-02-21 14:39 | Consultation ---
History of Present Illness Consult date: 02/21/20 Requesting physician: LONDON MONTEMAYOR Reason for Consult: CVA Chief complaint: Left-sided weakness History of present illness: 84 yo male, right-handed, with htn, dementia, presented outside the tPA window with left-sided weakness. he also suffered a fall priro to arrival to the ED. Notes scar tissue of right eye. Notes "bladder pain" at present and continued left-sided weakness. Past History Past Medical History: hypertension, other (See HPI) Past Surgical History: No surgical history, Other (Reviewed) Social history: , smoking Family history: hypertension Medications and Allergies Allergies Allergy/AdvReac Type Severity Reaction Status Date / Time levofloxacin [From Levaquin] Allergy Unknown Verified 08/18/17 18:28 aspirin AdvReac Nausea Verified 08/18/17 13:09 unknown antibiotic AdvReac Unknown Uncoded 08/18/17 13:09 Home Medications Medication Instructions Recorded Confirmed Last Taken Type Lisinopril 20 mg PO DAILY 08/18/17 02/18/20 02/18/20 History Metoprolol [Lopressor TAB] 50 mg PO DAILY 02/18/20 02/18/20 02/18/20 History Ondansetron [Zofran ODT TAB] 8 mg PO Q8HR PRN 02/18/20 02/18/20 02/18/20 History Active Meds: Active Medications Acetaminophen (Tylenol) 650 mg PO Q4H PRN PRN Reason: Pain, Mild (1-3) Amlodipine Besylate (Amlodipine) 10 mg PO QDAY [facility] Last Admin: 02/21/20 14:21 Dose: 10 mg Documented by: Atorvastatin Calcium (Lipitor) 40 mg PO QHS [facility] Last Admin: 02/20/20 21:24 Dose: 40 mg Documented by: Bisacodyl (Dulcolax) 10 mg GA QDAY PRN PRN Reason: Constipation Clopidogrel Bisulfate (Plavix) 75 mg PO QDAY [facility] Last Admin: 02/21/20 09:57 Dose: 75 mg Documented by: Sodium Chloride (Nacl 0.9% 1000 Ml) 1,000 mls @ 75 mls/hr IV DIRECT CELE Lisinopril (Zestril) 20 mg PO QDAY [facility] Last Admin: 02/21/20 09:56 Dose: 20 mg Documented by: Magnesium Hydroxide (Milk Of Magnesia) 30 ml PO Q4H PRN PRN Reason: Constipation Metoclopramide HCl (Reglan) 5 mg PO Q6H PRN PRN Reason: Nausea And Vomiting Metoprolol Succinate (Metoprolol Xl) 50 mg PO QDAY CELE Last Admin: 02/21/20 09:57 Dose: 50 mg Documented by: Ondansetron HCl (Zofran) 4 mg IV Q8H PRN PRN Reason: Nausea And Vomiting Promethazine HCl (Phenergan) 25 mg GA Q6H PRN PRN Reason: Nausea And Vomiting Sodium Chloride (Sodium Chloride Flush Syringe 10 Ml) 10 ml IV PRN PRN PRN Reason: LINE FLUSH Review of Systems All systems: negative (as per HPI;) Physical Examination - Vital Signs Vital Signs: Vital Signs Temp Pulse Resp BP Pulse Ox 97.8 F 80 16 161/83 100 02/18/20 17:20 02/18/20 17:20 02/18/20 17:20 02/18/20 17:20 02/18/20 17:20 - Additional Exam Additional Exam: Gen: nad, well-nourished; Head: normocephalic; Eyes: no gaze deviation; no ptosis; ENT: normal vocalization; CVS: warm and well-perfused; Pulm: no respiratory distress;; GI: non-distended, protuberant; Ext: no cyanosis or edema at distal extremities; Skin: no acute rash or hives at distal extremities; Heme: no pathologic bruising or ecchymosis at distal extremities; Neuro: alert, oriented to name, month, not age; slight dysarthria, no aphasia, CN 2 - PERRL, visual marroquin intact, CN 3, 4, 6 - EOMI, CN 5 - facial sensation symmetric to light touch, CN 7 - facial movement symmetric, CN 8 - hearing grossly intact, CN 9, 10 - uvula midline, CN 11 - shrug symmetric, CN 12 - tongue midline; Motor - at least 4+/5 at all exts except 4-/5 at left arm (drift to bed) and left leg slight drift; Sensory - light touch decreased at left arm/leg, Cerebellar - difficulty w/ left fnf /hts secondary to weakness, Gait - deferred secondary to fall risk; NIHSS (1a.) Level of Consciousness:0 (1b.) LOC Questions:1 (1c.) LOC Commands:0 (2.) Best Gaze:0 (3.) Visual:0 (4.) Facial Palsy:0 (5a.) Motor Arm, Left:2 (5b.) Motor Arm, Right:0 (6a.) Motor Leg, Left:1 (6b.) Motor Leg, Right:0 (7.) Limb Ataxia:0 (8.) Sensory:1 (9.) Best Language:0 (10.) Dysarthria:1 (11.) Extinction and Inattention:0 NIHSS Total Score:6 Results - Laboratory Findings CBC and BMP: 02/18/20 17:37 02/21/20 07:40 Abnormal Lab Findings: Abnormal Labs 02/18/20 02/18/20 02/18/20 17:37 17:37 18:12 Hgb 11.6 L Hct 34.8 L Lymph # (Auto) 1.0 L Seg Neutrophils % 76.3 H BUN 27 H Creatinine 1.7 H Glucose 108 H POC Glucose 111 H Assessment and Plan 84 yo male with htn, dementia, presenting with right thalamocapsular lacunar stroke with left-sided (arm>>>leg) weakness. Patient notes allergy (GI side effects) to aspirin. 1. Acute Ischemic Stroke: Plavix 75 mg PO qday, unremarkable TTEcho/CUS; telemetry, SBP goal 160-200 mmHg and DBP 80-100 mmHg for 24 more hours and then may normalize. Statin therapy for a goal LDL of 70, if patient passed swallow evaluation. PT/OT/ST/Swallow evaluation. Long-term risk-factor modification, including a strict diet/exercise regimen for secondary stroke prophylaxis. 2. Hypertension - permissive htn for 24 more hours and then may normalize. 3. Dementia - confirm b12, tsh-t4 levels. 4. Bladder pain - per primary team. 5. Followup with Stroke Neurology in 6 weeks. Neurology will signoff.
[2020-02-21 16:04] LABS: BUN/Creatinine Ratio 15; Blood Urea Nitrogen 17 mg/dL (9-20); Chol/HDL Ratio 3.04 %; HDL Cholesterol 50 mg/dL (40-59); Hemolysis Index 77; LDL Cholesterol,Direct 95 mg/dL (50-130)
[2020-02-22] MEDS: CLOPIDOGREL 75 MG TAB PO SCH (09:22)
[2020-02-22] MEDS: METOPROLOL SUCCINATE XL 50 MG TAB PO SCH (09:22)
[2020-02-22] MEDS: amLODIPine 10 MG TAB PO SCH (09:22)
[2020-02-22] MEDS: LISINOPRIL 20 MG TAB PO SCH (09:22)
--- NOTE | 2020-02-22 16:11 | Progress Note ---
Assessment and Plan Assessment and plan: 84 YO Male with Vascular Dementia, Cerebral Atherosclerosis on Antiplatelet therapy, Nicotine Dependence, HTN, Pulmonary Fibrosis presents to ED for evaluation. Patient states that she was in her usual state of health around bedtime at around 2100 hrs. and again upon awakening at around 0300 hrs. Daysi gimenez also reports that she awoke again from sleep at approximately 0530 hrs. and was found to have left arm and leg weakness with difficulty ambulating. Patient also reports dense decrease sensation in the left upper and lower extremities. EMS was notified and upon arrival the patient was found to have a neurologic deficit. A code stroke was called and the patient was transported to [facility] for further care and evaluation. Patient seen and evaluated in the emergency department. Lab and imaging studies were reviewed. Patient was found to have symptoms consistent with acute CVA. Patient placed in observation status and admitted to telemetry for further care and evaluation due to increased risk of worsening symptoms. Teleneurology was consulted in the ED and the patient was deemed not a candidate for TPA. Patient initiated on antiplatelet therapy. Patient denies fever, chills, chest pain, palpitations, productive cough, skin rash, recent ill contacts, trauma, or known exposure to COVID-19. All medication listed at time of admission has been reconciled. Advanced care planning conducted in the emergency department. No prior admission for review. 02/19/2020 patient has 3/5 power in the left upper extremity and 4/5 power in the left lower extremity patient is alert and oriented 02/20/2020 patient has good improvement in the left upper extremity and left lower extremity weakness. PT evaluation pending. MRI brain shows subacute right basal ganglia infarct. Echo shows no PFO, shunt or stenosis. US doppler carotids negative for significant stenosis. 02/20. PT evaluation - rec subacute rehab. He has discomfort around the lower abdomen. Bladder scan showed residual volume of 400cc. Patient subesquently passed urine without intervention. I will start him on flomax for now. - Patient Problems -- Acute CVA (cerebrovascular accident) Current Visit: Yes Status: Acute Plan to address problem: Left hemiplegia improved MRI brain shows subacute infarct in the right basal ganglia. Echo - negative bubble study. Continue Plavix(patient is allergic to aspirin) and statins PT - recs subacute rehab Neurology evaluation appreciated --Hypertension Current Visit: Yes Status: Chronic Qualifiers: Hypertension type: essential hypertension Qualified Code(s): I10 - Essential (primary) hypertension Plan to address problem: Continue amlodipine -- Acute kidney injury Current Visit: Yes Status: Acute Plan to address problem: Improved Secondary to vasomotor nephropathy --Systolic heart failure Current Visit: Yes Status: Acute Plan to address problem: Continue current management Afterload reduction with ACEI Toprol low dose Cardiology follow up after discharge -- DVT prophylaxis Current Visit: Yes Status: Acute Plan to address problem: On heparin and GI prophylaxis -- Discharge planning issues Current Visit: Yes Status: Acute Plan to address problem: Pending neurology evaluation History Interval history: Patient seen and examined at bedside. Discussed with patients daughter today. He will need placement. Hospitalist Physical - Constitutional Vitals: Temp Pulse Resp BP Pulse Ox 97.4 F L 73 18 134/86 97 02/22/20 08:07 02/22/20 09:22 02/22/20 08:07 02/22/20 09:22 02/22/20 08:07 General appearance: Present: no acute distress, well-nourished - EENT Eyes: Present: PERRL - Neck Neck: Present: supple - Respiratory Respiratory: bilateral: CTA - Cardiovascular Heart Sounds: Present: S1 & S2 - Extremities Extremities: No edema - Abdominal General gastrointestinal: soft, non-tender, non-distended, normal bowel sounds - Psychiatric Psychiatric: appropriate mood/affect - Neurologic Neurologic: other (Alert and oriented x 3) HEART Score - HEART Score Troponin: Troponin T < 0.010 ng/mL (0.00-0.029) 02/18/20 17:37 Results - Labs CBC & Chem 7: 02/18/20 17:37 02/21/20 07:40 Labs: Laboratory Last Values WBC 6.6 K/mm3 (4.5-11.0) 02/18/20 17:37 RBC 3.79 M/mm3 (3.65-5.03) 02/18/20 17:37 Hgb 11.6 gm/dl (11.8-15.2) L 02/18/20 17:37 Hct 34.8 % (35.5-45.6) L 02/18/20 17:37 MCV 92 fl (84-94) 02/18/20 17:37 MCH 31 pg (28-32) 02/18/20 17:37 MCHC 33 % (32-34) 02/18/20 17:37 RDW 15.1 % (13.2-15.2) 02/18/20 17:37 Plt Count 158 K/mm3 (140-440) 02/18/20 17:37 Lymph % (Auto) 14.5 % (13.4-35.0) 02/18/20 17:37 [place] % (Auto) 6.7 % (0.0-7.3) 02/18/20 17:37 Eos % (Auto) 1.8 % (0.0-4.3) 02/18/20 17:37 Baso % (Auto) 0.7 % (0.0-1.8) 02/18/20 17:37 Lymph # (Auto) 1.0 K/mm3 (1.2-5.4) L 02/18/20 17:37 [place] # (Auto) 0.4 K/mm3 (0.0-0.8) 02/18/20 17:37 Eos # (Auto) 0.1 K/mm3 (0.0-0.4) 02/18/20 17:37 Baso # (Auto) 0.0 K/mm3 (0.0-0.1) 02/18/20 17:37 Seg Neutrophils % 76.3 % (40.0-70.0) H 02/18/20 17:37 Seg Neutrophils # 5.1 K/mm3 (1.8-7.7) 02/18/20 17:37 PT 12.9 Sec. (12.2-14.9) 02/18/20 17:37 INR 0.95 (0.87-1.13) 02/18/20 17:37 APTT 32.8 Sec. (24.2-36.6) 02/18/20 17:37 Thrombin Time 16.0 Sec. (15.1-19.6) 02/18/20 17:37 Sodium 136 mmol/L (137-145) L 02/21/20 07:40 Potassium 4.5 mmol/L (3.6-5.0) 02/21/20 07:40 Chloride 105.2 mmol/L (98-107) 02/21/20 07:40 Carbon Dioxide 15 mmol/L (22-30) L D 02/21/20 07:40 Anion Gap 20 mmol/L 02/21/20 07:40 BUN 17 mg/dL (9-20) 02/21/20 07:40 Creatinine 1.1 mg/dL (0.8-1.3) 02/21/20 07:40 Estimated GFR > 60 ml/min 02/21/20 07:40 BUN/Creatinine Ratio 15 % 02/21/20 07:40 Glucose 72 mg/dL (75-100) L 02/21/20 07:40 POC Glucose 79 (70-105) 02/20/20 08:07 Calcium 9.0 mg/dL (8.4-10.2) 02/21/20 07:40 Troponin T < 0.010 ng/mL (0.00-0.029) 02/18/20 17:37 Triglycerides 86 mg/dL (2-149) 02/21/20 07:40 Cholesterol 152 mg/dL (50-199) 02/21/20 07:40 LDL Cholesterol Direct 95 mg/dL (50-130) 02/21/20 07:40 HDL Cholesterol 50 mg/dL (40-59) 02/21/20 07:40 Cholesterol/HDL Ratio 3.04 % 02/21/20 07:40 - Diagnostic Impressions Diagnostic Impressions: Echocardiogram 02/18/20 18:21 Transthoracic Echocardiogram Indication: Stroke BP: 128/77 HR: 86 Conclusions *The left ventricular size is mild to moderately dilated. *Mild concentric left ventricular hypertrophy is observed. *Global left ventricular systolic function is moderate to severely decreased. *The estimated ejection fraction is 30-35%. *There is mild dilatation of the ascending aorta which measures 4.5 cm. The aortic root size is normal. *There is mild aortic regurgitation. *There is mild mitral regurgitation. *There is mild tricuspid regurgitation. *There is evidence of mild pulmonary hypertension. *The right ventricular systolic pressure is calculated at 34 mmHg. *A patent foramen ovale is not demonstrated by agitated saline contrast. Findings Left Ventricle: The left ventricular size is mild to moderately dilated. Mild concentric left ventricular hypertrophy is observed. Global left ventricular systolic function is moderate to severely decreased. The estimated ejection fraction is 30-35%. Left Atrium: The left atrium is mildly dilated. Right Ventricle: The right ventricle is slightly dilated. The right ventricular global systolic function is normal. Right Atrium: The right atrial cavity size is normal. A patent foramen ovale is not demonstrated by agitated saline contrast. Aortic Valve: The aortic valve is trileaflet. The aortic valve leaflets are mildly thickened. There is mild aortic regurgitation. There is no evidence of aortic stenosis. Mitral Valve: The mitral valve leaflets are mildly thickened. There is mild mitral regurgitation. There is no evidence of mitral stenosis. Tricuspid Valve: There is mild tricuspid regurgitation. The right ventricular systolic pressure is calculated at 34 mmHg. There is evidence of mild pulmonary hypertension. Pulmonic Valve: There is mild pulmonic regurgitation. Pericardium: There is no pericardial effusion. Aorta: There is mild dilatation of the ascending aorta. There is no dilatation of the aortic root. Venous: The inferior vena cava appears normal in size. Contrast: Intravenous agitated saline contrast was used to assess intracardiac shunting. Measurements Chambers 2D Name Value Normal Range IVSd (2D) 1 cm (0.6 - 1.1) LVPWd (2D) 0.97 cm (0.6 - 1.1) LVIDd (2D) 4.88 cm (3.7 - 5.6) LVIDs (2D) 3.72 cm (2 - 3.8) LV FS (2D) 23.84 % - EF Teichholz (2D) 47.42 % - Ao root diameter (2D) 3.55 cm (2 - 3.7) Volumes/Mass Name Value Normal Range LA ESV SP 4CH (A/L) 17.82 ml - LA ESV SP 2CH (A/L) 33.01 ml - LA ESV BP (A/L) 26.94 ml - LA ESV BP (A/L) index 15.57 ml/m2 - LA ESV SP 4CH (MOD) 17.8 ml - LA ESV SP 2CH (MOD) 30.25 ml - LA ESV BP (MOD) 25.48 ml - LA ESV BP (MOD) index 14.73 ml/m2 - Aortic Valve Name Value Normal Range AV Vmax 0.98 m/sec - AV VTI 20.8 cm - AV peak gradient 3.87 mmHg - AV mean gradient 2.15 mmHg - LVOT diameter 2.14 cm - LVOT Vmax 0.77 m/sec - LVOT VTI 12.22 cm - LVOT peak gradient 2.38 mmHg - LVOT mean gradient 1.25 mmHg - SV LVOT 43.78 ml - JAIME (continuity Vmax) 2.81 cm2 - JAIME (continuity VTI) 2.1 cm2 - Ascending Ao 4.53 cm - Tricuspid Valve Name Value Normal Range TR Vmax 2.78 m/sec - TR peak gradient 31 mmHg - RAP 3 mmHg - RVSP 34 mmHg - Pulmonic Valve/Qp:Qs Name Value Normal Range PV Vmax 0.78 m/sec - PV peak gradient 2.4 mmHg - PV acceleration time 79.92 msec - Wolff/IV: Voiding Method Urinal IV Catheter Type [Left Forearm INT / Saline Lock ] IV Catheter Type [Right Peripheral IV Antecubital] Active Medications - Current Medications Current Medications: Generic Name Dose Route Start Last Admin Trade Name Freq PRN Reason Stop Dose Admin Acetaminophen 650 mg 02/18/20 18:20 Tylenol PO Q4H PRN Pain, Mild (1-3) Amlodipine Besylate 10 mg 02/21/20 15:00 02/22/20 09:22 Amlodipine PO 10 mg QDAY CELE Administration Atorvastatin Calcium 40 mg 02/18/20 22:00 02/21/20 21:05 Lipitor PO 40 mg QHS CELE Administration Bisacodyl 10 mg 02/18/20 18:20 Dulcolax [place] QDAY PRN Constipation Clopidogrel Bisulfate 75 mg 02/19/20 10:00 02/22/20 09:22 Plavix PO 75 mg QDAY CELE Administration Sodium Chloride 1,000 mls @ 75 mls/hr 02/21/20 08:00 02/21/20 21:05 Nacl 0.9% 1000 Ml IV 75 mls/hr DIRECT CELE Administration Lisinopril 20 mg 02/21/20 10:00 02/22/20 09:22 Zestril PO 20 mg QDAY CELE Administration Magnesium Hydroxide 30 ml 02/18/20 18:20 Milk Of Magnesia PO Q4H PRN Constipation Metoclopramide HCl 5 mg 02/18/20 18:20 Reglan PO Q6H PRN Nausea And Vomiting Metoprolol Succinate 50 mg 02/21/20 10:00 02/22/20 09:22 Metoprolol Xl PO 50 mg QDAY CELE Administration Ondansetron HCl 4 mg 02/18/20 18:20 Zofran IV Q8H PRN Nausea And Vomiting Promethazine HCl 25 mg 02/18/20 18:20 Phenergan [place] Q6H PRN Nausea And Vomiting Sodium Chloride 10 ml 02/18/20 18:20 Sodium Chloride Flush Syringe 10 Ml IV PRN PRN LINE FLUSH Tamsulosin HCl 0.4 mg 02/23/20 10:00 Flomax PO QDAY CELE
[2020-02-23] MEDS: METOPROLOL SUCCINATE XL 50 MG TAB PO SCH (09:38)
[2020-02-23] MEDS: LISINOPRIL 20 MG TAB PO SCH (09:38)
[2020-02-23] MEDS: CLOPIDOGREL 75 MG TAB PO SCH (09:38)
[2020-02-23] MEDS: TAMSULOSIN 0.4 MG CAP PO SCH (09:38)
[2020-02-23] MEDS: amLODIPine 10 MG TAB PO SCH (09:39)
[2020-02-23] MEDS: POLYETHYLENE GLYCOL 3350 17 GM POWDER PO SCH (11:17)
--- NOTE | 2020-02-23 13:51 | Progress Note ---
Assessment and Plan Assessment and plan: 84 YO Male with Vascular Dementia, Cerebral Atherosclerosis on Antiplatelet therapy, Nicotine Dependence, HTN, Pulmonary Fibrosis presents to ED for evaluation. Patient states that she was in her usual state of health around bedtime at around 2100 hrs. and again upon awakening at around 0300 hrs. Daysi gimenez also reports that she awoke again from sleep at approximately 0530 hrs. and was found to have left arm and leg weakness with difficulty ambulating. Patient also reports dense decrease sensation in the left upper and lower extremities. EMS was notified and upon arrival the patient was found to have a neurologic deficit. A code stroke was called and the patient was transported to [facility] for further care and evaluation. Patient seen and evaluated in the emergency department. Lab and imaging studies were reviewed. Patient was found to have symptoms consistent with acute CVA. Patient placed in observation status and admitted to telemetry for further care and evaluation due to increased risk of worsening symptoms. Teleneurology was consulted in the ED and the patient was deemed not a candidate for TPA. Patient initiated on antiplatelet therapy. Patient denies fever, chills, chest pain, palpitations, productive cough, skin rash, recent ill contacts, trauma, or known exposure to COVID-19. All medication listed at time of admission has been reconciled. Advanced care planning conducted in the emergency department. No prior admission for review. 02/19/2020 patient has 3/5 power in the left upper extremity and 4/5 power in the left lower extremity patient is alert and oriented 02/20/2020 patient has good improvement in the left upper extremity and left lower extremity weakness. PT evaluation pending. MRI brain shows subacute right basal ganglia infarct. Echo shows no PFO, shunt or stenosis. US doppler carotids negative for significant stenosis. 02/20. PT evaluation - rec subacute rehab. He has discomfort around the lower abdomen. Bladder scan showed residual volume of 400cc. Patient subesquently passed urine without intervention. I will start him on flomax for now. - Patient Problems -- Acute CVA (cerebrovascular accident) Current Visit: Yes Status: Acute Plan to address problem: Left hemiplegia improved MRI brain shows subacute infarct in the right basal ganglia. Echo - negative bubble study. Continue Plavix(patient is allergic to aspirin) and statins PT - recs subacute rehab awaiting placement Neurology evaluation appreciated --Hypertension Current Visit: Yes Status: Chronic Qualifiers: Hypertension type: essential hypertension Qualified Code(s): I10 - Essential (primary) hypertension Plan to address problem: Continue amlodipine -- Acute kidney injury Current Visit: Yes Status: Resolved Plan to address problem: Improved Secondary to vasomotor nephropathy. Resolved --Systolic heart failure Current Visit: Yes Status: Acute Plan to address problem: Continue current management Afterload reduction with ACEI Toprol low dose Cardiology follow up after discharge -- DVT prophylaxis Current Visit: Yes Status: Acute Plan to address problem: On heparin and GI prophylaxis -- Discharge planning issues Current Visit: Yes Status: Acute Plan to address problem: Dc when insurance approved transfer to facility History Interval history: Patient seen and examined at bedside. Complains of constipation. Awaiting insurance auth Hospitalist Physical - Physical exam Narrative exam: VITAL SIGNS: Reviewed. GENERAL: Awake and alert on response to questions HEAD: No signs of head trauma. EYES: Pupils are equal. Extraocular motions intact. EARS: Hearing grossly intact. MOUTH: Oropharynx is normal. NECK: No adenopathy, no JVD. CHEST: Chest with diminished breath sounds bilaterally. No wheezes, rales, or rhonchi. CARDIAC: Regular rate and rhythm. S1 and S2, without murmurs, gallops, or rubs. VASCULAR: No Edema. Peripheral pulses normal and equal in all extremities. ABDOMEN: Soft, non tender and non distended. No rebound or guarding, and no masses palpated. Bowel Sounds normal. MUSCULOSKELETAL: Good range of motion of all major joints. Extremities without clubbing, cyanosis or edema. NEUROLOGIC EXAM: Alert and oriented x3. No focal neurologic deficits PSYCHIATRIC: Stable mood SKIN: No obvious lesions - Constitutional Vitals: Temp Pulse Resp BP Pulse Ox 98.2 F 70 16 112/85 98 02/23/20 02:51 02/23/20 09:39 02/23/20 02:51 02/23/20 09:39 02/23/20 08:00 HEART Score - HEART Score Troponin: Troponin T < 0.010 ng/mL (0.00-0.029) 02/18/20 17:37 Results - Labs CBC & Chem 7: 02/18/20 17:37 02/21/20 07:40 Labs: Laboratory Last Values WBC 6.6 K/mm3 (4.5-11.0) 02/18/20 17:37 RBC 3.79 M/mm3 (3.65-5.03) 02/18/20 17:37 Hgb 11.6 gm/dl (11.8-15.2) L 02/18/20 17:37 Hct 34.8 % (35.5-45.6) L 02/18/20 17:37 MCV 92 fl (84-94) 02/18/20 17:37 MCH 31 pg (28-32) 02/18/20 17:37 MCHC 33 % (32-34) 02/18/20 17:37 RDW 15.1 % (13.2-15.2) 02/18/20 17:37 Plt Count 158 K/mm3 (140-440) 02/18/20 17:37 Lymph % (Auto) 14.5 % (13.4-35.0) 02/18/20 17:37 [place] % (Auto) 6.7 % (0.0-7.3) 02/18/20 17:37 Eos % (Auto) 1.8 % (0.0-4.3) 02/18/20 17:37 Baso % (Auto) 0.7 % (0.0-1.8) 02/18/20 17:37 Lymph # (Auto) 1.0 K/mm3 (1.2-5.4) L 02/18/20 17:37 [place] # (Auto) 0.4 K/mm3 (0.0-0.8) 02/18/20 17:37 Eos # (Auto) 0.1 K/mm3 (0.0-0.4) 02/18/20 17:37 Baso # (Auto) 0.0 K/mm3 (0.0-0.1) 02/18/20 17:37 Seg Neutrophils % 76.3 % (40.0-70.0) H 02/18/20 17:37 Seg Neutrophils # 5.1 K/mm3 (1.8-7.7) 02/18/20 17:37 PT 12.9 Sec. (12.2-14.9) 02/18/20 17:37 INR 0.95 (0.87-1.13) 02/18/20 17:37 APTT 32.8 Sec. (24.2-36.6) 02/18/20 17:37 Thrombin Time 16.0 Sec. (15.1-19.6) 02/18/20 17:37 Sodium 136 mmol/L (137-145) L 02/21/20 07:40 Potassium 4.5 mmol/L (3.6-5.0) 02/21/20 07:40 Chloride 105.2 mmol/L (98-107) 02/21/20 07:40 Carbon Dioxide 15 mmol/L (22-30) L D 02/21/20 07:40 Anion Gap 20 mmol/L 02/21/20 07:40 BUN 17 mg/dL (9-20) 02/21/20 07:40 Creatinine 1.1 mg/dL (0.8-1.3) 02/21/20 07:40 Estimated GFR > 60 ml/min 02/21/20 07:40 BUN/Creatinine Ratio 15 % 02/21/20 07:40 Glucose 72 mg/dL (75-100) L 02/21/20 07:40 POC Glucose 79 (70-105) 02/20/20 08:07 Calcium 9.0 mg/dL (8.4-10.2) 02/21/20 07:40 Troponin T < 0.010 ng/mL (0.00-0.029) 02/18/20 17:37 Triglycerides 86 mg/dL (2-149) 02/21/20 07:40 Cholesterol 152 mg/dL (50-199) 02/21/20 07:40 LDL Cholesterol Direct 95 mg/dL (50-130) 02/21/20 07:40 HDL Cholesterol 50 mg/dL (40-59) 02/21/20 07:40 Cholesterol/HDL Ratio 3.04 % 02/21/20 07:40 - Diagnostic Impressions Diagnostic Impressions: Echocardiogram 02/18/20 18:21 Transthoracic Echocardiogram Indication: Stroke BP: 128/77 HR: 86 Conclusions *The left ventricular size is mild to moderately dilated. *Mild concentric left ventricular hypertrophy is observed. *Global left ventricular systolic function is moderate to severely decreased. *The estimated ejection fraction is 30-35%. *There is mild dilatation of the ascending aorta which measures 4.5 cm. The aortic root size is normal. *There is mild aortic regurgitation. *There is mild mitral regurgitation. *There is mild tricuspid regurgitation. *There is evidence of mild pulmonary hypertension. *The right ventricular systolic pressure is calculated at 34 mmHg. *A patent foramen ovale is not demonstrated by agitated saline contrast. Findings Left Ventricle: The left ventricular size is mild to moderately dilated. Mild concentric left ventricular hypertrophy is observed. Global left ventricular systolic function is moderate to severely decreased. The estimated ejection fraction is 30-35%. Left Atrium: The left atrium is mildly dilated. Right Ventricle: The right ventricle is slightly dilated. The right ventricular global systolic function is normal. Right Atrium: The right atrial cavity size is normal. A patent foramen ovale is not demonstrated by agitated saline contrast. Aortic Valve: The aortic valve is trileaflet. The aortic valve leaflets are mildly thickened. There is mild aortic regurgitation. There is no evidence of aortic stenosis. Mitral Valve: The mitral valve leaflets are mildly thickened. There is mild mitral regurgitation. There is no evidence of mitral stenosis. Tricuspid Valve: There is mild tricuspid regurgitation. The right ventricular systolic pressure is calculated at 34 mmHg. There is evidence of mild pulmonary hypertension. Pulmonic Valve: There is mild pulmonic regurgitation. Pericardium: There is no pericardial effusion. Aorta: There is mild dilatation of the ascending aorta. There is no dilatation of the aortic root. Venous: The inferior vena cava appears normal in size. Contrast: Intravenous agitated saline contrast was used to assess intracardiac shunting. Measurements Chambers 2D Name Value Normal Range IVSd (2D) 1 cm (0.6 - 1.1) LVPWd (2D) 0.97 cm (0.6 - 1.1) LVIDd (2D) 4.88 cm (3.7 - 5.6) LVIDs (2D) 3.72 cm (2 - 3.8) LV FS (2D) 23.84 % - EF Teichholz (2D) 47.42 % - Ao root diameter (2D) 3.55 cm (2 - 3.7) Volumes/Mass Name Value Normal Range LA ESV SP 4CH (A/L) 17.82 ml - LA ESV SP 2CH (A/L) 33.01 ml - LA ESV BP (A/L) 26.94 ml - LA ESV BP (A/L) index 15.57 ml/m2 - LA ESV SP 4CH (MOD) 17.8 ml - LA ESV SP 2CH (MOD) 30.25 ml - LA ESV BP (MOD) 25.48 ml - LA ESV BP (MOD) index 14.73 ml/m2 - Aortic Valve Name Value Normal Range AV Vmax 0.98 m/sec - AV VTI 20.8 cm - AV peak gradient 3.87 mmHg - AV mean gradient 2.15 mmHg - LVOT diameter 2.14 cm - LVOT Vmax 0.77 m/sec - LVOT VTI 12.22 cm - LVOT peak gradient 2.38 mmHg - LVOT mean gradient 1.25 mmHg - SV LVOT 43.78 ml - JAIME (continuity Vmax) 2.81 cm2 - JAIME (continuity VTI) 2.1 cm2 - Ascending Ao 4.53 cm - Tricuspid Valve Name Value Normal Range TR Vmax 2.78 m/sec - TR peak gradient 31 mmHg - RAP 3 mmHg - RVSP 34 mmHg - Pulmonic Valve/Qp:Qs Name Value Normal Range PV Vmax 0.78 m/sec - PV peak gradient 2.4 mmHg - PV acceleration time 79.92 msec - Wolff/IV: Voiding Method Urinal IV Catheter Type [Left Forearm INT / Saline Lock ] IV Catheter Type [Right Peripheral IV Antecubital] Active Medications - Current Medications Current Medications: Generic Name Dose Route Start Last Admin Trade Name Freq PRN Reason Stop Dose Admin Acetaminophen 650 mg 02/18/20 18:20 Tylenol PO Q4H PRN Pain, Mild (1-3) Amlodipine Besylate 10 mg 02/21/20 15:00 02/23/20 09:39 Amlodipine PO 10 mg QDAY CELE Administration Atorvastatin Calcium 40 mg 02/18/20 22:00 02/22/20 21:18 Lipitor PO 40 mg QHS CELE Administration Bisacodyl 10 mg 02/18/20 18:20 Dulcolax [place] QDAY PRN Constipation Clopidogrel Bisulfate 75 mg 02/19/20 10:00 02/23/20 09:38 Plavix PO 75 mg QDAY CELE Administration Lisinopril 20 mg 02/21/20 10:00 02/23/20 09:38 Zestril PO 20 mg QDAY CELE Administration Magnesium Hydroxide 30 ml 02/18/20 18:20 Milk Of Magnesia PO Q4H PRN Constipation Metoclopramide HCl 5 mg 02/18/20 18:20 Reglan PO Q6H PRN Nausea And Vomiting Metoprolol Succinate 50 mg 02/21/20 10:00 02/23/20 09:38 Metoprolol Xl PO 50 mg QDAY CELE Administration Ondansetron HCl 4 mg 02/18/20 18:20 Zofran IV Q8H PRN Nausea And Vomiting Polyethylene Glycol 17 gm 02/23/20 11:00 02/23/20 11:17 Miralax 3350 PO Not Given QDAY CELE Promethazine HCl 25 mg 02/18/20 18:20 Phenergan [place] Q6H PRN Nausea And Vomiting Sodium Chloride 10 ml 02/18/20 18:20 Sodium Chloride Flush Syringe 10 Ml IV PRN PRN LINE FLUSH Tamsulosin HCl 0.4 mg 02/23/20 10:00 02/23/20 09:38 Flomax PO 0.4 mg QDAY CELE Administration
[2020-02-24] MEDS: amLODIPine 10 MG TAB PO SCH (09:04)
[2020-02-24] MEDS: TAMSULOSIN 0.4 MG CAP PO SCH (09:05)
[2020-02-24] MEDS: METOPROLOL SUCCINATE XL 50 MG TAB PO SCH (09:05)
[2020-02-24] MEDS: CLOPIDOGREL 75 MG TAB PO SCH (09:06)
[2020-02-24] MEDS: POLYETHYLENE GLYCOL 3350 17 GM POWDER PO SCH (09:06)
[2020-02-24] MEDS: LISINOPRIL 20 MG TAB PO SCH (09:06)
--- NOTE | 2020-02-24 14:17 | Progress Note ---
Assessment and Plan Assessment and plan: 84 YO Male with Vascular Dementia, Cerebral Atherosclerosis on Antiplatelet therapy, Nicotine Dependence, HTN, Pulmonary Fibrosis presents to ED for evaluation. Patient states that she was in her usual state of health around bedtime at around 2100 hrs. and again upon awakening at around 0300 hrs. Daysi gimenez also reports that she awoke again from sleep at approximately 0530 hrs. and was found to have left arm and leg weakness with difficulty ambulating. Patient also reports dense decrease sensation in the left upper and lower extremities. EMS was notified and upon arrival the patient was found to have a neurologic deficit. A code stroke was called and the patient was transported to [facility] for further care and evaluation. Patient seen and evaluated in the emergency department. Lab and imaging studies were reviewed. Patient was found to have symptoms consistent with acute CVA. Patient placed in observation status and admitted to telemetry for further care and evaluation due to increased risk of worsening symptoms. Teleneurology was consulted in the ED and the patient was deemed not a candidate for TPA. Patient initiated on antiplatelet therapy. Patient denies fever, chills, chest pain, palpitations, productive cough, skin rash, recent ill contacts, trauma, or known exposure to COVID-19. All medication listed at time of admission has been reconciled. Advanced care planning conducted in the emergency department. No prior admission for review. 02/19/2020 patient has 3/5 power in the left upper extremity and 4/5 power in the left lower extremity patient is alert and oriented 02/20/2020 patient has good improvement in the left upper extremity and left lower extremity weakness. PT evaluation pending. MRI brain shows subacute right basal ganglia infarct. Echo shows no PFO, shunt or stenosis. US doppler carotids negative for significant stenosis. 02/20. PT evaluation - rec subacute rehab. He has discomfort around the lower abdomen. Bladder scan showed residual volume of 400cc. Patient subesquently passed urine without intervention. I will start him on flomax for now. 02/21- 02/23. No change in medical condition. Awaiting placement. - Patient Problems -- Acute CVA (cerebrovascular accident) Current Visit: Yes Status: Acute Plan to address problem: Left hemiplegia improved MRI brain shows subacute infarct in the right basal ganglia. Echo - negative bubble study. Continue Plavix(patient is allergic to aspirin) and statins PT - recs subacute rehab awaiting placement Neurology evaluation appreciated --Hypertension Current Visit: Yes Status: Chronic Qualifiers: Hypertension type: essential hypertension Qualified Code(s): I10 - Essential (primary) hypertension Plan to address problem: Continue amlodipine -- Acute kidney injury Current Visit: Yes Status: Resolved Plan to address problem: Improved Secondary to vasomotor nephropathy. Resolved --Systolic heart failure Current Visit: Yes Status: Acute Plan to address problem: Continue current management Afterload reduction with ACEI Toprol low dose Cardiology follow up after discharge -- DVT prophylaxis Current Visit: Yes Status: Acute Plan to address problem: On heparin and GI prophylaxis -- Discharge planning issues Current Visit: Yes Status: Acute Plan to address problem: Dc when insurance approved transfer to facility History Interval history: Patient seen and examined at bedside. No complaints. Still awaiting placement Hospitalist Physical - Physical exam Narrative exam: VITAL SIGNS: Reviewed. GENERAL: Awake and alert on response to questions HEAD: No signs of head trauma. EYES: Pupils are equal. Extraocular motions intact. EARS: Hearing grossly intact. MOUTH: Oropharynx is normal. NECK: No adenopathy, no JVD. CHEST: Chest with diminished breath sounds bilaterally. No wheezes, rales, or rhonchi. CARDIAC: Regular rate and rhythm. S1 and S2, without murmurs, gallops, or rubs. VASCULAR: No Edema. Peripheral pulses normal and equal in all extremities. ABDOMEN: Soft, non tender and non distended. No rebound or guarding, and no masses palpated. Bowel Sounds normal. MUSCULOSKELETAL: Good range of motion of all major joints. Extremities without clubbing, cyanosis or edema. NEUROLOGIC EXAM: Alert and oriented x3. No focal neurologic deficits PSYCHIATRIC: Stable mood SKIN: No obvious lesions - Constitutional Vitals: Temp Pulse Resp BP Pulse Ox 97.4 F L 91 H 18 108/68 97 02/24/20 11:18 02/24/20 11:18 02/24/20 11:18 02/24/20 11:18 02/24/20 11:18 General appearance: Present: no acute distress, well-nourished HEART Score - HEART Score Troponin: Troponin T < 0.010 ng/mL (0.00-0.029) 02/18/20 17:37 Results - Labs CBC & Chem 7: 02/18/20 17:37 02/21/20 07:40 Labs: Laboratory Last Values WBC 6.6 K/mm3 (4.5-11.0) 02/18/20 17:37 RBC 3.79 M/mm3 (3.65-5.03) 02/18/20 17:37 Hgb 11.6 gm/dl (11.8-15.2) L 02/18/20 17:37 Hct 34.8 % (35.5-45.6) L 02/18/20 17:37 MCV 92 fl (84-94) 02/18/20 17:37 MCH 31 pg (28-32) 02/18/20 17:37 MCHC 33 % (32-34) 02/18/20 17:37 RDW 15.1 % (13.2-15.2) 02/18/20 17:37 Plt Count 158 K/mm3 (140-440) 02/18/20 17:37 Lymph % (Auto) 14.5 % (13.4-35.0) 02/18/20 17:37 [place] % (Auto) 6.7 % (0.0-7.3) 02/18/20 17:37 Eos % (Auto) 1.8 % (0.0-4.3) 02/18/20 17:37 Baso % (Auto) 0.7 % (0.0-1.8) 02/18/20 17:37 Lymph # (Auto) 1.0 K/mm3 (1.2-5.4) L 02/18/20 17:37 [place] # (Auto) 0.4 K/mm3 (0.0-0.8) 02/18/20 17:37 Eos # (Auto) 0.1 K/mm3 (0.0-0.4) 02/18/20 17:37 Baso # (Auto) 0.0 K/mm3 (0.0-0.1) 02/18/20 17:37 Seg Neutrophils % 76.3 % (40.0-70.0) H 02/18/20 17:37 Seg Neutrophils # 5.1 K/mm3 (1.8-7.7) 02/18/20 17:37 PT 12.9 Sec. (12.2-14.9) 02/18/20 17:37 INR 0.95 (0.87-1.13) 02/18/20 17:37 APTT 32.8 Sec. (24.2-36.6) 02/18/20 17:37 Thrombin Time 16.0 Sec. (15.1-19.6) 02/18/20 17:37 Sodium 136 mmol/L (137-145) L 02/21/20 07:40 Potassium 4.5 mmol/L (3.6-5.0) 02/21/20 07:40 Chloride 105.2 mmol/L (98-107) 02/21/20 07:40 Carbon Dioxide 15 mmol/L (22-30) L D 02/21/20 07:40 Anion Gap 20 mmol/L 02/21/20 07:40 BUN 17 mg/dL (9-20) 02/21/20 07:40 Creatinine 1.1 mg/dL (0.8-1.3) 02/21/20 07:40 Estimated GFR > 60 ml/min 02/21/20 07:40 BUN/Creatinine Ratio 15 % 02/21/20 07:40 Glucose 72 mg/dL (75-100) L 02/21/20 07:40 POC Glucose 79 (70-105) 02/20/20 08:07 Calcium 9.0 mg/dL (8.4-10.2) 02/21/20 07:40 Troponin T < 0.010 ng/mL (0.00-0.029) 02/18/20 17:37 Triglycerides 86 mg/dL (2-149) 02/21/20 07:40 Cholesterol 152 mg/dL (50-199) 02/21/20 07:40 LDL Cholesterol Direct 95 mg/dL (50-130) 02/21/20 07:40 HDL Cholesterol 50 mg/dL (40-59) 02/21/20 07:40 Cholesterol/HDL Ratio 3.04 % 02/21/20 07:40 - Diagnostic Impressions Diagnostic Impressions: Echocardiogram 02/18/20 18:21 Transthoracic Echocardiogram Indication: Stroke BP: 128/77 HR: 86 Conclusions *The left ventricular size is mild to moderately dilated. *Mild concentric left ventricular hypertrophy is observed. *Global left ventricular systolic function is moderate to severely decreased. *The estimated ejection fraction is 30-35%. *There is mild dilatation of the ascending aorta which measures 4.5 cm. The aortic root size is normal. *There is mild aortic regurgitation. *There is mild mitral regurgitation. *There is mild tricuspid regurgitation. *There is evidence of mild pulmonary hypertension. *The right ventricular systolic pressure is calculated at 34 mmHg. *A patent foramen ovale is not demonstrated by agitated saline contrast. Findings Left Ventricle: The left ventricular size is mild to moderately dilated. Mild concentric left ventricular hypertrophy is observed. Global left ventricular systolic function is moderate to severely decreased. The estimated ejection fraction is 30-35%. Left Atrium: The left atrium is mildly dilated. Right Ventricle: The right ventricle is slightly dilated. The right ventricular global systolic function is normal. Right Atrium: The right atrial cavity size is normal. A patent foramen ovale is not demonstrated by agitated saline contrast. Aortic Valve: The aortic valve is trileaflet. The aortic valve leaflets are mildly thickened. There is mild aortic regurgitation. There is no evidence of aortic stenosis. Mitral Valve: The mitral valve leaflets are mildly thickened. There is mild mitral regurgitation. There is no evidence of mitral stenosis. Tricuspid Valve: There is mild tricuspid regurgitation. The right ventricular systolic pressure is calculated at 34 mmHg. There is evidence of mild pulmonary hypertension. Pulmonic Valve: There is mild pulmonic regurgitation. Pericardium: There is no pericardial effusion. Aorta: There is mild dilatation of the ascending aorta. There is no dilatation of the aortic root. Venous: The inferior vena cava appears normal in size. Contrast: Intravenous agitated saline contrast was used to assess intracardiac shunting. Measurements Chambers 2D Name Value Normal Range IVSd (2D) 1 cm (0.6 - 1.1) LVPWd (2D) 0.97 cm (0.6 - 1.1) LVIDd (2D) 4.88 cm (3.7 - 5.6) LVIDs (2D) 3.72 cm (2 - 3.8) LV FS (2D) 23.84 % - EF Teichholz (2D) 47.42 % - Ao root diameter (2D) 3.55 cm (2 - 3.7) Volumes/Mass Name Value Normal Range LA ESV SP 4CH (A/L) 17.82 ml - LA ESV SP 2CH (A/L) 33.01 ml - LA ESV BP (A/L) 26.94 ml - LA ESV BP (A/L) index 15.57 ml/m2 - LA ESV SP 4CH (MOD) 17.8 ml - LA ESV SP 2CH (MOD) 30.25 ml - LA ESV BP (MOD) 25.48 ml - LA ESV BP (MOD) index 14.73 ml/m2 - Aortic Valve Name Value Normal Range AV Vmax 0.98 m/sec - AV VTI 20.8 cm - AV peak gradient 3.87 mmHg - AV mean gradient 2.15 mmHg - LVOT diameter 2.14 cm - LVOT Vmax 0.77 m/sec - LVOT VTI 12.22 cm - LVOT peak gradient 2.38 mmHg - LVOT mean gradient 1.25 mmHg - SV LVOT 43.78 ml - JAIME (continuity Vmax) 2.81 cm2 - JAIME (continuity VTI) 2.1 cm2 - Ascending Ao 4.53 cm - Tricuspid Valve Name Value Normal Range TR Vmax 2.78 m/sec - TR peak gradient 31 mmHg - RAP 3 mmHg - RVSP 34 mmHg - Pulmonic Valve/Qp:Qs Name Value Normal Range PV Vmax 0.78 m/sec - PV peak gradient 2.4 mmHg - PV acceleration time 79.92 msec - Wolff/IV: Voiding Method Condom Catheter IV Catheter Type [Left Forearm INT / Saline Lock ] IV Catheter Type [Right Peripheral IV Antecubital] Active Medications - Current Medications Current Medications: Generic Name Dose Route Start Last Admin Trade Name Freq PRN Reason Stop Dose Admin Acetaminophen 650 mg 02/18/20 18:20 Tylenol PO Q4H PRN Pain, Mild (1-3) Amlodipine Besylate 10 mg 02/21/20 15:00 02/24/20 09:04 Amlodipine PO 10 mg QDAY CELE Administration Atorvastatin Calcium 40 mg 02/18/20 22:00 02/23/20 21:46 Lipitor PO 40 mg QHS CELE Administration Bisacodyl 10 mg 02/18/20 18:20 Dulcolax MN QDAY PRN Constipation Clopidogrel Bisulfate 75 mg 02/19/20 10:00 02/24/20 09:06 Plavix PO 75 mg QDAY CELE Administration Lisinopril 20 mg 02/21/20 10:00 02/24/20 09:06 Zestril PO 20 mg QDAY CELE Administration Magnesium Hydroxide 30 ml 02/18/20 18:20 Milk Of Magnesia PO Q4H PRN Constipation Metoclopramide HCl 5 mg 02/18/20 18:20 Reglan PO Q6H PRN Nausea And Vomiting Metoprolol Succinate 50 mg 02/21/20 10:00 02/24/20 09:05 Metoprolol Xl PO 50 mg QDAY CELE Administration Ondansetron HCl 4 mg 02/18/20 18:20 Zofran IV Q8H PRN Nausea And Vomiting Polyethylene Glycol 17 gm 02/23/20 11:00 02/24/20 09:06 Miralax 3350 PO 17 gm QDAY CELE Administration Promethazine HCl 25 mg 02/18/20 18:20 Phenergan MN Q6H PRN Nausea And Vomiting Sodium Chloride 10 ml 02/18/20 18:20 Sodium Chloride Flush Syringe 10 Ml IV PRN PRN LINE FLUSH Tamsulosin HCl 0.4 mg 02/23/20 10:00 02/24/20 09:05 Flomax PO 0.4 mg QDAY CELE Administration Nutrition/Malnutrition Assess - Dietary Evaluation Nutrition/Malnutrition Findings: Nutrition Notes Start: 02/24/20 12:05 Freq: Status: Active Protocol: Document 02/24/20 12:05 MARTHA (Rec: 02/24/20 12:14 MARTHA [id number]) Co-Sign 02/24/20 12:05 LM Nutrition Notes Need for Assessment generated from: LOS Initial or Follow up Assessment Current Diagnosis Hypertension,Heart Failure, Stroke Other Pertinent Diagnosis cerebral atherosclerosis, pulmonary fibrosis, dementia Current Diet Cardiac Labs/Tests Na 136 BG 72 Pertinent Medications Miralax Height 5 ft 8 in Weight 61.5 kg [place] Body Weight (kg) 70.00 BMI 20.6 Intake Prior to Admission Good Weight Status Underweight Subjective/Other Information Screened for LOS. Pt reports poor intakes and appetite. Pt states that most foods don't taste good. 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 No Is Patient Ambulatory and/or Out of Bed No REE-([facility]-confined to bed) [phone] Calculation Used for Recommendations [facility] Additional Notes Pro: 74-92 g (1.2-1.5 g/kg) Fluid: 1 ml/kcal Nutrition Intervention Change Diet Order: Continue Cardiac diet Add Supplement/Snack (indicate name/kcal Ensure Enlive [place] BID /protein ) Provides kCal: 700 Provides Protein (gm) 40 Goal #1 Meet at least 80% energy and protein needs via PO and ONS Goal #2 Wt gain/maintenance Anticipated Discharge Needs: Cardiac diet Follow-Up By: 02/28/20 Additional Comments F/U for intakes and ONS tolerance
[2020-02-25] MEDS: CLOPIDOGREL 75 MG TAB PO SCH (09:41)
[2020-02-25] MEDS: POLYETHYLENE GLYCOL 3350 17 GM POWDER PO SCH (09:41)
[2020-02-25] MEDS: amLODIPine 10 MG TAB PO SCH (09:41)
[2020-02-25] MEDS: METOPROLOL SUCCINATE XL 50 MG TAB PO SCH (09:41)
[2020-02-25] MEDS: LISINOPRIL 5 MG TAB PO SCH (09:41)
[2020-02-25] MEDS: TAMSULOSIN 0.4 MG CAP PO SCH (09:41)
--- NOTE | 2020-02-25 11:46 | Progress Note ---
Assessment and Plan Assessment and plan: 84 YO Male with Vascular Dementia, Cerebral Atherosclerosis on Antiplatelet therapy, Nicotine Dependence, HTN, Pulmonary Fibrosis presents to ED for evaluation. Patient states that she was in her usual state of health around bedtime at around 2100 hrs. and again upon awakening at around 0300 hrs. Daysi gimenez also reports that she awoke again from sleep at approximately 0530 hrs. and was found to have left arm and leg weakness with difficulty ambulating. Patient also reports dense decrease sensation in the left upper and lower extremities. EMS was notified and upon arrival the patient was found to have a neurologic deficit. A code stroke was called and the patient was transported to [facility] for further care and evaluation. Patient seen and evaluated in the emergency department. Lab and imaging studies were reviewed. Patient was found to have symptoms consistent with acute CVA. Patient placed in observation status and admitted to telemetry for further care and evaluation due to increased risk of worsening symptoms. Teleneurology was consulted in the ED and the patient was deemed not a candidate for TPA. Patient initiated on antiplatelet therapy. Patient denies fever, chills, chest pain, palpitations, productive cough, skin rash, recent ill contacts, trauma, or known exposure to COVID-19. All medication listed at time of admission has been reconciled. Advanced care planning conducted in the emergency department. No prior admission for review. 02/19/2020 patient has 3/5 power in the left upper extremity and 4/5 power in the left lower extremity patient is alert and oriented 02/20/2020 patient has good improvement in the left upper extremity and left lower extremity weakness. PT evaluation pending. MRI brain shows subacute right basal ganglia infarct. Echo shows no PFO, shunt or stenosis. US doppler carotids negative for significant stenosis. 02/20. PT evaluation - rec subacute rehab. He has discomfort around the lower abdomen. Bladder scan showed residual volume of 400cc. Patient subesquently passed urine without intervention. I will start him on flomax for now. 02/21- 02/23. No change in medical condition. Awaiting placement. 02/24. Will get AM labs today. He has no complaints - Patient Problems -- Acute CVA (cerebrovascular accident) Current Visit: Yes Status: Acute Plan to address problem: Left hemiplegia improved MRI brain shows subacute infarct in the right basal ganglia. Echo - negative bubble study. Continue Plavix(patient is allergic to aspirin) and statins PT - recs subacute rehab awaiting placement Neurology evaluation appreciated --Hypertension Current Visit: Yes Status: Chronic Qualifiers: Hypertension type: essential hypertension Qualified Code(s): I10 - Essential (primary) hypertension Plan to address problem: Continue amlodipine -- Acute kidney injury Current Visit: Yes Status: Resolved Plan to address problem: Improved Secondary to vasomotor nephropathy. Resolved --Systolic heart failure Current Visit: Yes Status: Acute Plan to address problem: Continue current management Afterload reduction with ACEI Toprol low dose Cardiology follow up after discharge -- DVT prophylaxis Current Visit: Yes Status: Acute Plan to address problem: On heparin and GI prophylaxis -- Discharge planning issues Current Visit: Yes Status: Acute Plan to address problem: Dc when insurance approved transfer to facility History Interval history: Patient seen and examined at bedside. No complaints. Still awaiting placement. No change in medical condition Hospitalist Physical - Physical exam Narrative exam: VITAL SIGNS: Reviewed. GENERAL: Awake and alert on response to questions HEAD: No signs of head trauma. EYES: Pupils are equal. Extraocular motions intact. EARS: Hearing grossly intact. MOUTH: Oropharynx is normal. NECK: No adenopathy, no JVD. CHEST: Chest with diminished breath sounds bilaterally. No wheezes, rales, or rhonchi. CARDIAC: Regular rate and rhythm. S1 and S2, without murmurs, gallops, or rubs. VASCULAR: No Edema. Peripheral pulses normal and equal in all extremities. ABDOMEN: Soft, non tender and non distended. No rebound or guarding, and no masses palpated. Bowel Sounds normal. MUSCULOSKELETAL: Good range of motion of all major joints. Extremities without clubbing, cyanosis or edema. NEUROLOGIC EXAM: Alert and oriented x3. No focal neurologic deficits PSYCHIATRIC: Stable mood SKIN: No obvious lesions - Constitutional Vitals: Temp Pulse Resp BP Pulse Ox 97.5 F L 103 H 20 83/62 94 02/25/20 08:00 02/25/20 08:00 02/25/20 08:00 02/25/20 08:00 02/25/20 08:00 HEART Score - HEART Score Troponin: Troponin T < 0.010 ng/mL (0.00-0.029) 02/18/20 17:37 Results - Labs CBC & Chem 7: 02/18/20 17:37 02/21/20 07:40 Labs: Laboratory Last Values WBC 6.6 K/mm3 (4.5-11.0) 02/18/20 17:37 RBC 3.79 M/mm3 (3.65-5.03) 02/18/20 17:37 Hgb 11.6 gm/dl (11.8-15.2) L 02/18/20 17:37 Hct 34.8 % (35.5-45.6) L 02/18/20 17:37 MCV 92 fl (84-94) 02/18/20 17:37 MCH 31 pg (28-32) 02/18/20 17:37 MCHC 33 % (32-34) 02/18/20 17:37 RDW 15.1 % (13.2-15.2) 02/18/20 17:37 Plt Count 158 K/mm3 (140-440) 02/18/20 17:37 Lymph % (Auto) 14.5 % (13.4-35.0) 02/18/20 17:37 [place] % (Auto) 6.7 % (0.0-7.3) 02/18/20 17:37 Eos % (Auto) 1.8 % (0.0-4.3) 02/18/20 17:37 Baso % (Auto) 0.7 % (0.0-1.8) 02/18/20 17:37 Lymph # (Auto) 1.0 K/mm3 (1.2-5.4) L 02/18/20 17:37 [place] # (Auto) 0.4 K/mm3 (0.0-0.8) 02/18/20 17:37 Eos # (Auto) 0.1 K/mm3 (0.0-0.4) 02/18/20 17:37 Baso # (Auto) 0.0 K/mm3 (0.0-0.1) 02/18/20 17:37 Seg Neutrophils % 76.3 % (40.0-70.0) H 02/18/20 17:37 Seg Neutrophils # 5.1 K/mm3 (1.8-7.7) 02/18/20 17:37 PT 12.9 Sec. (12.2-14.9) 02/18/20 17:37 INR 0.95 (0.87-1.13) 02/18/20 17:37 APTT 32.8 Sec. (24.2-36.6) 02/18/20 17:37 Thrombin Time 16.0 Sec. (15.1-19.6) 02/18/20 17:37 Sodium 136 mmol/L (137-145) L 02/21/20 07:40 Potassium 4.5 mmol/L (3.6-5.0) 02/21/20 07:40 Chloride 105.2 mmol/L (98-107) 02/21/20 07:40 Carbon Dioxide 15 mmol/L (22-30) L D 02/21/20 07:40 Anion Gap 20 mmol/L 02/21/20 07:40 BUN 17 mg/dL (9-20) 02/21/20 07:40 Creatinine 1.1 mg/dL (0.8-1.3) 02/21/20 07:40 Estimated GFR > 60 ml/min 02/21/20 07:40 BUN/Creatinine Ratio 15 % 02/21/20 07:40 Glucose 72 mg/dL (75-100) L 02/21/20 07:40 POC Glucose 79 (70-105) 02/20/20 08:07 Calcium 9.0 mg/dL (8.4-10.2) 02/21/20 07:40 Troponin T < 0.010 ng/mL (0.00-0.029) 02/18/20 17:37 Triglycerides 86 mg/dL (2-149) 02/21/20 07:40 Cholesterol 152 mg/dL (50-199) 02/21/20 07:40 LDL Cholesterol Direct 95 mg/dL (50-130) 02/21/20 07:40 HDL Cholesterol 50 mg/dL (40-59) 02/21/20 07:40 Cholesterol/HDL Ratio 3.04 % 02/21/20 07:40 Coronavirus (PCR) Negative (Negative) 02/24/20 10:00 - Diagnostic Impressions Diagnostic Impressions: Echocardiogram 02/18/20 18:21 Transthoracic Echocardiogram Indication: Stroke BP: 128/77 HR: 86 Conclusions *The left ventricular size is mild to moderately dilated. *Mild concentric left ventricular hypertrophy is observed. *Global left ventricular systolic function is moderate to severely decreased. *The estimated ejection fraction is 30-35%. *There is mild dilatation of the ascending aorta which measures 4.5 cm. The aortic root size is normal. *There is mild aortic regurgitation. *There is mild mitral regurgitation. *There is mild tricuspid regurgitation. *There is evidence of mild pulmonary hypertension. *The right ventricular systolic pressure is calculated at 34 mmHg. *A patent foramen ovale is not demonstrated by agitated saline contrast. Findings Left Ventricle: The left ventricular size is mild to moderately dilated. Mild concentric left ventricular hypertrophy is observed. Global left ventricular systolic function is moderate to severely decreased. The estimated ejection fraction is 30-35%. Left Atrium: The left atrium is mildly dilated. Right Ventricle: The right ventricle is slightly dilated. The right ventricular global systolic function is normal. Right Atrium: The right atrial cavity size is normal. A patent foramen ovale is not demonstrated by agitated saline contrast. Aortic Valve: The aortic valve is trileaflet. The aortic valve leaflets are mildly thickened. There is mild aortic regurgitation. There is no evidence of aortic stenosis. Mitral Valve: The mitral valve leaflets are mildly thickened. There is mild mitral regurgitation. There is no evidence of mitral stenosis. Tricuspid Valve: There is mild tricuspid regurgitation. The right ventricular systolic pressure is calculated at 34 mmHg. There is evidence of mild pulmonary hypertension. Pulmonic Valve: There is mild pulmonic regurgitation. Pericardium: There is no pericardial effusion. Aorta: There is mild dilatation of the ascending aorta. There is no dilatation of the aortic root. Venous: The inferior vena cava appears normal in size. Contrast: Intravenous agitated saline contrast was used to assess intracardiac shunting. Measurements Chambers 2D Name Value Normal Range IVSd (2D) 1 cm (0.6 - 1.1) LVPWd (2D) 0.97 cm (0.6 - 1.1) LVIDd (2D) 4.88 cm (3.7 - 5.6) LVIDs (2D) 3.72 cm (2 - 3.8) LV FS (2D) 23.84 % - EF Teichholz (2D) 47.42 % - Ao root diameter (2D) 3.55 cm (2 - 3.7) Volumes/Mass Name Value Normal Range LA ESV SP 4CH (A/L) 17.82 ml - LA ESV SP 2CH (A/L) 33.01 ml - LA ESV BP (A/L) 26.94 ml - LA ESV BP (A/L) index 15.57 ml/m2 - LA ESV SP 4CH (MOD) 17.8 ml - LA ESV SP 2CH (MOD) 30.25 ml - LA ESV BP (MOD) 25.48 ml - LA ESV BP (MOD) index 14.73 ml/m2 - Aortic Valve Name Value Normal Range AV Vmax 0.98 m/sec - AV VTI 20.8 cm - AV peak gradient 3.87 mmHg - AV mean gradient 2.15 mmHg - LVOT diameter 2.14 cm - LVOT Vmax 0.77 m/sec - LVOT VTI 12.22 cm - LVOT peak gradient 2.38 mmHg - LVOT mean gradient 1.25 mmHg - SV LVOT 43.78 ml - JAIME (continuity Vmax) 2.81 cm2 - JAIME (continuity VTI) 2.1 cm2 - Ascending Ao 4.53 cm - Tricuspid Valve Name Value Normal Range TR Vmax 2.78 m/sec - TR peak gradient 31 mmHg - RAP 3 mmHg - RVSP 34 mmHg - Pulmonic Valve/Qp:Qs Name Value Normal Range PV Vmax 0.78 m/sec - PV peak gradient 2.4 mmHg - PV acceleration time 79.92 msec - Wolff/IV: Voiding Method Urinal IV Catheter Type [Left Forearm INT / Saline Lock ] IV Catheter Type [Right Peripheral IV Antecubital] Active Medications - Current Medications Current Medications: Generic Name Dose Route Start Last Admin Trade Name Freq PRN Reason Stop Dose Admin Acetaminophen 650 mg 02/18/20 18:20 Tylenol PO Q4H PRN Pain, Mild (1-3) Amlodipine Besylate 10 mg 02/21/20 15:00 02/25/20 09:41 Amlodipine PO Not Given QDAY CELE Atorvastatin Calcium 40 mg 02/18/20 22:00 02/24/20 21:39 Lipitor PO 40 mg QHS CELE Administration Bisacodyl 10 mg 02/18/20 18:20 Dulcolax AK QDAY PRN Constipation Clopidogrel Bisulfate 75 mg 02/19/20 10:00 02/25/20 09:41 Plavix PO 75 mg QDAY CELE Administration Lisinopril 2.5 mg 02/25/20 10:00 02/25/20 09:41 Zestril PO Not Given QDAY CELE Magnesium Hydroxide 30 ml 02/18/20 18:20 Milk Of Magnesia PO Q4H PRN Constipation Metoclopramide HCl 5 mg 02/18/20 18:20 Reglan PO Q6H PRN Nausea And Vomiting Metoprolol Succinate 50 mg 02/21/20 10:00 02/25/20 09:41 Metoprolol Xl PO 50 mg QDAY CELE Administration Ondansetron HCl 4 mg 02/18/20 18:20 Zofran IV Q8H PRN Nausea And Vomiting Polyethylene Glycol 17 gm 02/23/20 11:00 02/25/20 09:41 Miralax 3350 PO 17 gm QDAY CELE Administration Promethazine HCl 25 mg 02/18/20 18:20 Phenergan AK Q6H PRN Nausea And Vomiting Sodium Chloride 10 ml 02/18/20 18:20 Sodium Chloride Flush Syringe 10 Ml IV PRN PRN LINE FLUSH Tamsulosin HCl 0.4 mg 02/23/20 10:00 02/25/20 09:41 Flomax PO 0.4 mg QDAY CELE Administration Nutrition/Malnutrition Assess - Dietary Evaluation Nutrition/Malnutrition Findings: Nutrition Notes Start: 02/24/20 12:05 Freq: Status: Active Protocol: Document 02/24/20 12:05 MARTHA (Rec: 02/24/20 12:14 MARTHA [id number]) Co-Sign 02/24/20 12:05 LM Nutrition Notes Need for Assessment generated from: LOS Initial or Follow up Assessment Current Diagnosis Hypertension,Heart Failure, Stroke Other Pertinent Diagnosis cerebral atherosclerosis, pulmonary fibrosis, dementia Current Diet Cardiac Labs/Tests Na 136 BG 72 Pertinent Medications Miralax Height 5 ft 8 in Weight 61.5 kg Usual Body Weight 63.18 kg [place] Body Weight (kg) 70.00 BMI 20.6 Intake Prior to Admission Good Weight change and time frame 2.6% wt loss in 1 week Weight Status Underweight Subjective/Other Information Screened for LOS. Pt reports poor intakes and appetite. Pt states that most foods don't taste good. Burn Absent Trauma Absent Food Allergy No Current % PO Poor (25-49%) Minimum of two criteria Yes Interpretation of Weight Loss (severe) >2% in 1 week Body Fat Depletion Moderate depletion (severe) Muscle Mass Moderate Depletion (severe) Reduced Border Measurer Strength Measurably Reduced (severe) #2 Nutrition Diagnosis Inadequate oral intake Etiology decreased appetite, advanced age As Evidenced by Signs and Symptoms pt consuming < 50% meals #1 Nutrition Diagnosis Malnutrition Etiology decreased appetite, advanced age As Evidenced by Signs and Symptoms 2.6% wt loss x1 week, moderate muscle and fat depletion, BL weak straw hat presser strength Is patient on ventilator? No Is Patient Ambulatory and/or Out of Bed No REE-([facility]-confined to bed) 1530.924 Calculation Used for Recommendations [facility] Additional Notes Pro: 74-92 g (1.2-1.5 g/kg) Fluid: 1 ml/kcal Nutrition Intervention Change Diet Order: Continue Cardiac diet Add Supplement/Snack (indicate name/kcal Ensure Enlive Ericson BID /protein ) Provides kCal: 700 Provides Protein (gm) 40 Goal #1 Meet at least 80% energy and protein needs via PO and ONS Goal #2 Wt gain/maintenance Anticipated Discharge Needs: Cardiac diet Follow-Up By: 02/28/20 Additional Comments F/U for intakes and ONS tolerance
[2020-02-25 17:45] LABS: Basophils % (Auto) 0.5 % (0.0-1.8); Eosinophils # (Auto) 0.1 K/mm3 (0.0-0.4); Eosinophils % (Auto) 1.9 % (0.0-4.3); Hematocrit 33.4 % (35.5-45.6); Hemoglobin 11.3 gm/dl (11.8-15.2); Lymphocytes # (Auto) 0.9 K/mm3 (1.2-5.4); Lymphocytes % (Auto) 11.2 % (13.4-35.0); Mean Corpuscular HGB Conc 34 % (32-34); Mean Corpuscular Volume 90 fl (84-94); Monocytes # (Auto) 0.6 K/mm3 (0.0-0.8); Monocytes % (Auto) 8.1 % (0.0-7.3); Platelet Count 166 K/mm3 (140-440); Red Blood Count 3.72 M/mm3 (3.65-5.03); Red Cell Distribution Width 15.1 % (13.2-15.2)
[2020-02-25 18:00] LABS: Albumin 3.1 g/dL (3.9-5)
[2020-02-26] MEDS: LISINOPRIL 5 MG TAB PO SCH (10:33)
[2020-02-26] MEDS: CLOPIDOGREL 75 MG TAB PO SCH (10:33)
[2020-02-26] MEDS: TAMSULOSIN 0.4 MG CAP PO SCH (10:33)
[2020-02-26] MEDS: POLYETHYLENE GLYCOL 3350 17 GM POWDER PO SCH (10:33)
[2020-02-26] MEDS: amLODIPine 10 MG TAB PO SCH (10:33)
[2020-02-26] MEDS: METOPROLOL SUCCINATE XL 50 MG TAB PO SCH (10:34)
--- NOTE | 2020-02-26 12:33 | Progress Note ---
Assessment and Plan Assessment and plan: 84 YO Male with Vascular Dementia, Cerebral Atherosclerosis on Antiplatelet therapy, Nicotine Dependence, HTN, Pulmonary Fibrosis presents to ED for evaluation. Patient states that she was in her usual state of health around bedtime at around 2100 hrs. and again upon awakening at around 0300 hrs. Daysi gimenez also reports that she awoke again from sleep at approximately 0530 hrs. and was found to have left arm and leg weakness with difficulty ambulating. Patient also reports dense decrease sensation in the left upper and lower extremities. EMS was notified and upon arrival the patient was found to have a neurologic deficit. A code stroke was called and the patient was transported to [facility] for further care and evaluation. Patient seen and evaluated in the emergency department. Lab and imaging studies were reviewed. Patient was found to have symptoms consistent with acute CVA. Patient placed in observation status and admitted to telemetry for further care and evaluation due to increased risk of worsening symptoms. Teleneurology was consulted in the ED and the patient was deemed not a candidate for TPA. Patient initiated on antiplatelet therapy. Patient denies fever, chills, chest pain, palpitations, productive cough, skin rash, recent ill contacts, trauma, or known exposure to COVID-19. All medication listed at time of admission has been reconciled. Advanced care planning conducted in the emergency department. No prior admission for review. 02/19/2020 patient has 3/5 power in the left upper extremity and 4/5 power in the left lower extremity patient is alert and oriented 02/20/2020 patient has good improvement in the left upper extremity and left lower extremity weakness. PT evaluation pending. MRI brain shows subacute right basal ganglia infarct. Echo shows no PFO, shunt or stenosis. US doppler carotids negative for significant stenosis. 02/20. PT evaluation - rec subacute rehab. He has discomfort around the lower abdomen. Bladder scan showed residual volume of 400cc. Patient subesquently passed urine without intervention. I will start him on flomax for now. 02/21- 02/23. No change in medical condition. Awaiting placement. 02/24. Will get AM labs today. He has no complaints 02/25. Labs reviewed. Awaiting insurance approval - Patient Problems -- Acute CVA (cerebrovascular accident) Current Visit: Yes Status: Acute Plan to address problem: Left hemiplegia improved MRI brain shows subacute infarct in the right basal ganglia. Echo - negative bubble study. Continue Plavix(patient is allergic to aspirin) and statins PT - recs subacute rehab awaiting placement Neurology evaluation appreciated --Hypertension Current Visit: Yes Status: Chronic Qualifiers: Hypertension type: essential hypertension Qualified Code(s): I10 - Essential (primary) hypertension Plan to address problem: Continue amlodipine -- Acute kidney injury Current Visit: Yes Status: Resolved Plan to address problem: Improved Secondary to vasomotor nephropathy. Resolved --Systolic heart failure Current Visit: Yes Status: Acute Plan to address problem: Continue current management Afterload reduction with ACEI Toprol low dose Cardiology follow up after discharge -- DVT prophylaxis Current Visit: Yes Status: Acute Plan to address problem: On heparin and GI prophylaxis -- Discharge planning issues Current Visit: Yes Status: Acute Plan to address problem: Dc when insurance approved transfer to facility History Interval history: Patient seen and examined at bedside. No complaints. Still awaiting placement. No change in medical condition Hospitalist Physical - Physical exam Narrative exam: VITAL SIGNS: Reviewed. GENERAL: Awake and alert on response to questions HEAD: No signs of head trauma. EYES: Pupils are equal. Extraocular motions intact. EARS: Hearing grossly intact. MOUTH: Oropharynx is normal. NECK: No adenopathy, no JVD. CHEST: Chest with diminished breath sounds bilaterally. No wheezes, rales, or rhonchi. CARDIAC: Regular rate and rhythm. S1 and S2, without murmurs, gallops, or rubs . VASCULAR: No Edema. Peripheral pulses normal and equal in all extremities. ABDOMEN: Soft, non tender and non distended. No rebound or guarding, and no masses palpated. Bowel Sounds normal. MUSCULOSKELETAL: Good range of motion of all major joints. Extremities without clubbing, cyanosis or edema. NEUROLOGIC EXAM: Alert and oriented x3. No focal neurologic deficits PSYCHIATRIC: Stable mood SKIN: No obvious lesions - Constitutional Vitals: Temp Pulse Resp BP Pulse Ox 97.4 F L 64 16 122/64 98 02/26/20 07:41 02/26/20 09:02 02/26/20 07:41 02/26/20 07:41 02/26/20 07:41 HEART Score - HEART Score Troponin: Troponin T < 0.010 ng/mL (0.00-0.029) 02/18/20 17:37 Results - Labs CBC & Chem 7: 02/25/20 17:09 10/24/20 17:09 Labs: Laboratory Last Values WBC 7.6 K/mm3 (4.5-11.0) 02/25/20 17:09 RBC 3.72 M/mm3 (3.65-5.03) 02/25/20 17:09 Hgb 11.3 gm/dl (11.8-15.2) L 02/25/20 17:09 Hct 33.4 % (35.5-45.6) L 02/25/20 17:09 MCV 90 fl (84-94) 02/25/20 17:09 MCH 30 pg (28-32) 02/25/20 17:09 MCHC 34 % (32-34) 02/25/20 17:09 RDW 15.1 % (13.2-15.2) 02/25/20 17:09 Plt Count 166 K/mm3 (140-440) 02/25/20 17:09 Lymph % (Auto) 11.2 % (13.4-35.0) L 02/25/20 17:09 Dyer % (Auto) 8.1 % (0.0-7.3) H 02/25/20 17:09 Eos % (Auto) 1.9 % (0.0-4.3) 02/25/20 17:09 Baso % (Auto) 0.5 % (0.0-1.8) 02/25/20 17:09 Lymph # (Auto) 0.9 K/mm3 (1.2-5.4) L 02/25/20 17:09 Dyer # (Auto) 0.6 K/mm3 (0.0-0.8) 02/25/20 17:09 Eos # (Auto) 0.1 K/mm3 (0.0-0.4) 02/25/20 17:09 Baso # (Auto) 0.0 K/mm3 (0.0-0.1) 02/25/20 17:09 Seg Neutrophils % 78.3 % (40.0-70.0) H 02/25/20 17:09 Seg Neutrophils # 6.0 K/mm3 (1.8-7.7) 02/25/20 17:09 PT 12.9 Sec. (12.2-14.9) 02/18/20 17:37 INR 0.95 (0.87-1.13) 02/18/20 17:37 APTT 32.8 Sec. (24.2-36.6) 02/18/20 17:37 Thrombin Time 16.0 Sec. (15.1-19.6) 02/18/20 17:37 Sodium 134 mmol/L (137-145) L 02/25/20 17:09 Potassium 4.1 mmol/L (3.6-5.0) 02/25/20 17:09 Chloride 99.9 mmol/L (98-107) 02/25/20 17:09 Carbon Dioxide 24 mmol/L (22-30) D 02/25/20 17:09 Anion Gap 14 mmol/L 02/25/20 17:09 BUN 32 mg/dL (9-20) H 02/25/20 17:09 Creatinine 1.2 mg/dL (0.8-1.3) 02/25/20 17:09 Estimated GFR 57 ml/min 02/25/20 17:09 BUN/Creatinine Ratio 27 % 02/25/20 17:09 Glucose 102 mg/dL (75-100) H 02/25/20 17:09 POC Glucose 79 (70-105) 02/20/20 08:07 Calcium 9.0 mg/dL (8.4-10.2) 02/25/20 17:09 Magnesium 1.80 mg/dL (1.7-2.3) 02/25/20 17:09 Total Bilirubin 0.30 mg/dL (0.1-1.2) 02/25/20 17:09 AST 11 units/L (5-40) 02/25/20 17:09 ALT 7 units/L (7-56) 02/25/20 17:09 Alkaline Phosphatase 90 units/L (35-129) 02/25/20 17:09 Troponin T < 0.010 ng/mL (0.00-0.029) 02/18/20 17:37 Total Protein 6.0 g/dL (6.3-8.2) L 02/25/20 17:09 Albumin 3.1 g/dL (3.9-5) L 02/25/20 17:09 Albumin/Globulin Ratio 1.1 % 02/25/20 17:09 Triglycerides 86 mg/dL (2-149) 02/21/20 07:40 Cholesterol 152 mg/dL (50-199) 02/21/20 07:40 LDL Cholesterol Direct 95 mg/dL (50-130) 02/21/20 07:40 HDL Cholesterol 50 mg/dL (40-59) 02/21/20 07:40 Cholesterol/HDL Ratio 3.04 % 02/21/20 07:40 Coronavirus (PCR) Negative (Negative) 02/24/20 10:00 - Diagnostic Impressions Diagnostic Impressions: Echocardiogram 02/18/20 18:21 Transthoracic Echocardiogram Indication: Stroke BP: 128/77 HR: 86 Conclusions *The left ventricular size is mild to moderately dilated. *Mild concentric left ventricular hypertrophy is observed. *Global left ventricular systolic function is moderate to severely decreased. *The estimated ejection fraction is 30-35%. *There is mild dilatation of the ascending aorta which measures 4.5 cm. The aortic root size is normal. *There is mild aortic regurgitation. *There is mild mitral regurgitation. *There is mild tricuspid regurgitation. *There is evidence of mild pulmonary hypertension. *The right ventricular systolic pressure is calculated at 34 mmHg. *A patent foramen ovale is not demonstrated by agitated saline contrast. Findings Left Ventricle: The left ventricular size is mild to moderately dilated. Mild concentric left ventricular hypertrophy is observed. Global left ventricular systolic function is moderate to severely decreased. The estimated ejection fraction is 30-35%. Left Atrium: The left atrium is mildly dilated. Right Ventricle: The right ventricle is slightly dilated. The right ventricular global systolic function is normal. Right Atrium: The right atrial cavity size is normal. A patent foramen ovale is not demonstrated by agitated saline contrast. Aortic Valve: The aortic valve is trileaflet. The aortic valve leaflets are mildly thickened. There is mild aortic regurgitation. There is no evidence of aortic stenosis. Mitral Valve: The mitral valve leaflets are mildly thickened. There is mild mitral regurgitation. There is no evidence of mitral stenosis. Tricuspid Valve: There is mild tricuspid regurgitation. The right ventricular systolic pressure is calculated at 34 mmHg. There is evidence of mild pulmonary hypertension. Pulmonic Valve: There is mild pulmonic regurgitation. Pericardium: There is no pericardial effusion. Aorta: There is mild dilatation of the ascending aorta. There is no dilatation of the aortic root. Venous: The inferior vena cava appears normal in size. Contrast: Intravenous agitated saline contrast was used to assess intracardiac shunting. Measurements Chambers 2D Name Value Normal Range IVSd (2D) 1 cm (0.6 - 1.1) LVPWd (2D) 0.97 cm (0.6 - 1.1) LVIDd (2D) 4.88 cm (3.7 - 5.6) LVIDs (2D) 3.72 cm (2 - 3.8) LV FS (2D) 23.84 % - EF Teichholz (2D) 47.42 % - Ao root diameter (2D) 3.55 cm (2 - 3.7) Volumes/Mass Name Value Normal Range LA ESV SP 4CH (A/L) 17.82 ml - LA ESV SP 2CH (A/L) 33.01 ml - LA ESV BP (A/L) 26.94 ml - LA ESV BP (A/L) index 15.57 ml/m2 - LA ESV SP 4CH (MOD) 17.8 ml - LA ESV SP 2CH (MOD) 30.25 ml - LA ESV BP (MOD) 25.48 ml - LA ESV BP (MOD) index 14.73 ml/m2 - Aortic Valve Name Value Normal Range AV Vmax 0.98 m/sec - AV VTI 20.8 cm - AV peak gradient 3.87 mmHg - AV mean gradient 2.15 mmHg - LVOT diameter 2.14 cm - LVOT Vmax 0.77 m/sec - LVOT VTI 12.22 cm - LVOT peak gradient 2.38 mmHg - LVOT mean gradient 1.25 mmHg - SV LVOT 43.78 ml - JAIME (continuity Vmax) 2.81 cm2 - JAIME (continuity VTI) 2.1 cm2 - Ascending Ao 4.53 cm - Tricuspid Valve Name Value Normal Range TR Vmax 2.78 m/sec - TR peak gradient 31 mmHg - RAP 3 mmHg - RVSP 34 mmHg - Pulmonic Valve/Qp:Qs Name Value Normal Range PV Vmax 0.78 m/sec - PV peak gradient 2.4 mmHg - PV acceleration time 79.92 msec - Wolff/IV: Voiding Method Diaper IV Catheter Type [Left Forearm INT / Saline Lock ] IV Catheter Type [Right Peripheral IV Antecubital] Active Medications - Current Medications Current Medications: Generic Name Dose Route Start Last Admin Trade Name Freq PRN Reason Stop Dose Admin Acetaminophen 650 mg 02/18/20 18:20 Tylenol PO Q4H PRN Pain, Mild (1-3) Amlodipine Besylate 10 mg 02/21/20 15:00 02/26/20 10:33 Amlodipine PO 10 mg QDAY CELE Administration Atorvastatin Calcium 40 mg 02/18/20 22:00 02/25/20 22:10 Lipitor PO 40 mg QHS CELE Administration Bisacodyl 10 mg 02/18/20 18:20 Dulcolax MD QDAY PRN Constipation Clopidogrel Bisulfate 75 mg 02/19/20 10:00 02/26/20 10:33 Plavix PO 75 mg QDAY CELE Administration Lisinopril 2.5 mg 02/25/20 10:00 02/26/20 10:33 Zestril PO 2.5 mg QDAY CELE Administration Magnesium Hydroxide 30 ml 02/18/20 18:20 Milk Of Magnesia PO Q4H PRN Constipation Metoclopramide HCl 5 mg 02/18/20 18:20 Reglan PO Q6H PRN Nausea And Vomiting Metoprolol Succinate 50 mg 02/21/20 10:00 02/26/20 10:34 Metoprolol Xl PO 50 mg QDAY CELE Administration Ondansetron HCl 4 mg 02/18/20 18:20 Zofran IV Q8H PRN Nausea And Vomiting Polyethylene Glycol 17 gm 02/23/20 11:00 02/26/20 10:33 Miralax 3350 PO 17 gm QDAY CELE Administration Promethazine HCl 25 mg 02/18/20 18:20 Phenergan MD Q6H PRN Nausea And Vomiting Sodium Chloride 10 ml 02/18/20 18:20 Sodium Chloride Flush Syringe 10 Ml IV PRN PRN LINE FLUSH Tamsulosin HCl 0.4 mg 02/23/20 10:00 02/26/20 10:33 Flomax PO 0.4 mg QDAY CELE Administration Nutrition/Malnutrition Assess - Dietary Evaluation Nutrition/Malnutrition Findings: Nutrition Notes Start: 02/24/20 12:05 Freq: Status: Active Protocol: Document 02/24/20 12:05 MARTHA (Rec: 02/24/20 12:14 MARTHA [id number]) Co-Sign 02/24/20 12:05 LM Nutrition Notes Need for Assessment generated from: LOS Initial or Follow up Assessment Current Diagnosis Hypertension,Heart Failure, Stroke Other Pertinent Diagnosis cerebral atherosclerosis, pulmonary fibrosis, dementia Current Diet Cardiac Labs/Tests Na 136 BG 72 Pertinent Medications Miralax Height 5 ft 8 in Weight 61.5 kg Usual Body Weight 63.18 kg Cade Body Weight (kg) 70.00 BMI 20.6 Intake Prior to Admission Good Weight change and time frame 2.6% wt loss in 1 week Weight Status Underweight Subjective/Other Information Screened for LOS. Pt reports poor intakes and appetite. Pt states that most foods don't taste good. 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 No Is Patient Ambulatory and/or Out of Bed No REE-([facility]-confined to bed) 1530.924 Calculation Used for Recommendations [facility] Additional Notes Pro: 74-92 g (1.2-1.5 g/kg) Fluid: 1 ml/kcal Nutrition Intervention Change Diet Order: Continue Cardiac diet Add Supplement/Snack (indicate name/kcal Ensure Enlive [place] BID /protein ) Provides kCal: 700 Provides Protein (gm) 40 Goal #1 Meet at least 80% energy and protein needs via PO and ONS Goal #2 Wt gain/maintenance Anticipated Discharge Needs: Cardiac diet Follow-Up By: 02/28/20 Additional Comments F/U for intakes and ONS tolerance
--- NOTE | 2020-02-27 09:16 | Progress Note ---
Assessment and Plan Assessment and plan: -- Acute CVA (cerebrovascular accident) Current Visit: Yes Status: Acute Plan to address problem: Left hemiplegia improved MRI brain shows subacute infarct in the right basal ganglia. Echo - negative bubble study. Continue Plavix(patient is allergic to aspirin) and statins PT - recs subacute rehab awaiting placement Neurology evaluation appreciated --Hypertension Current Visit: Yes Status: Chronic Plan to address problem: Continue amlodipine -- Acute kidney injury Current Visit: Yes Status: Resolved Plan to address problem: Improved Secondary to vasomotor nephropathy. Resolved --Systolic heart failure Current Visit: Yes Status: Acute Plan to address problem: Continue current management Afterload reduction with ACEI Toprol low dose Cardiology follow up after discharge -- DVT prophylaxis Current Visit: Yes Status: Acute Plan to address problem: On heparin and GI prophylaxis -- Discharge planning issues Current Visit: Yes Status: Acute Plan to address problem: Dc when insurance approved transfer to facility Awaiting placement Plan of care reviewed with the patient his nurse and the case management History Interval history: I have seen and examined the patient at the bedside Patient's chart and medications reviewed Patient feels better, No new complaints Vital signs noted Hospitalist Physical - Constitutional Vitals: Temp Pulse Resp BP Pulse Ox 97.8 F 96 H 18 105/67 99 02/27/20 03:42 02/27/20 03:42 02/27/20 03:42 02/27/20 03:42 02/27/20 03:42 General appearance: Present: no acute distress, well-nourished - EENT Eyes: Present: PERRL, EOM intact - Neck Neck: Present: supple, normal ROM - Respiratory Respiratory effort: normal Respiratory: bilateral: diminished, negative: rales, rhonchi, wheezing - Cardiovascular Rhythm: regular Heart Sounds: Present: S1 & S2 - Extremities Extremities: no ischemia, No edema - Abdominal General gastrointestinal: soft, non-tender, non-distended, normal bowel sounds - Integumentary Integumentary: Present: clear, warm - Psychiatric Psychiatric: appropriate mood/affect, cooperative - Neurologic Neurologic: moves all extremities HEART Score - HEART Score Troponin: Troponin T < 0.010 ng/mL (0.00-0.029) 02/18/20 17:37 Results - Labs CBC & Chem 7: 02/25/20 17:09 02/25/20 17:09 Labs: Laboratory Last Values WBC 7.6 K/mm3 (4.5-11.0) 02/25/20 17:09 RBC 3.72 M/mm3 (3.65-5.03) 02/25/20 17:09 Hgb 11.3 gm/dl (11.8-15.2) L 02/25/20 17:09 Hct 33.4 % (35.5-45.6) L 02/25/20 17:09 MCV 90 fl (84-94) 02/25/20 17:09 MCH 30 pg (28-32) 02/25/20 17:09 MCHC 34 % (32-34) 02/25/20 17:09 RDW 15.1 % (13.2-15.2) 02/25/20 17:09 Plt Count 166 K/mm3 (140-440) 02/25/20 17:09 Lymph % (Auto) 11.2 % (13.4-35.0) L 02/25/20 17:09 [place] % (Auto) 8.1 % (0.0-7.3) H 02/25/20 17:09 Eos % (Auto) 1.9 % (0.0-4.3) 02/25/20 17:09 Baso % (Auto) 0.5 % (0.0-1.8) 02/25/20 17:09 Lymph # (Auto) 0.9 K/mm3 (1.2-5.4) L 02/25/20 17:09 [place] # (Auto) 0.6 K/mm3 (0.0-0.8) 02/25/20 17:09 Eos # (Auto) 0.1 K/mm3 (0.0-0.4) 02/25/20 17:09 Baso # (Auto) 0.0 K/mm3 (0.0-0.1) 02/25/20 17:09 Seg Neutrophils % 78.3 % (40.0-70.0) H 02/25/20 17:09 Seg Neutrophils # 6.0 K/mm3 (1.8-7.7) 02/25/20 17:09 PT 12.9 Sec. (12.2-14.9) 02/18/20 17:37 INR 0.95 (0.87-1.13) 02/18/20 17:37 APTT 32.8 Sec. (24.2-36.6) 02/18/20 17:37 Thrombin Time 16.0 Sec. (15.1-19.6) 02/18/20 17:37 Sodium 134 mmol/L (137-145) L 02/25/20 17:09 Potassium 4.1 mmol/L (3.6-5.0) 02/25/20 17:09 Chloride 99.9 mmol/L (98-107) 02/25/20 17:09 Carbon Dioxide 24 mmol/L (22-30) D 02/25/20 17:09 Anion Gap 14 mmol/L 02/25/20 17:09 BUN 32 mg/dL (9-20) H 02/25/20 17:09 Creatinine 1.2 mg/dL (0.8-1.3) 02/25/20 17:09 Estimated GFR 57 ml/min 02/25/20 17:09 BUN/Creatinine Ratio 27 % 02/25/20 17:09 Glucose 102 mg/dL (75-100) H 02/25/20 17:09 POC Glucose 79 (70-105) 02/20/20 08:07 Calcium 9.0 mg/dL (8.4-10.2) 02/25/20 17:09 Magnesium 1.80 mg/dL (1.7-2.3) 02/25/20 17:09 Total Bilirubin 0.30 mg/dL (0.1-1.2) 02/25/20 17:09 AST 11 units/L (5-40) 02/25/20 17:09 ALT 7 units/L (7-56) 02/25/20 17:09 Alkaline Phosphatase 90 units/L (35-129) 02/25/20 17:09 Troponin T < 0.010 ng/mL (0.00-0.029) 02/18/20 17:37 Total Protein 6.0 g/dL (6.3-8.2) L 02/25/20 17:09 Albumin 3.1 g/dL (3.9-5) L 02/25/20 17:09 Albumin/Globulin Ratio 1.1 % 02/25/20 17:09 Triglycerides 86 mg/dL (2-149) 02/21/20 07:40 Cholesterol 152 mg/dL (50-199) 02/21/20 07:40 LDL Cholesterol Direct 95 mg/dL (50-130) 02/21/20 07:40 HDL Cholesterol 50 mg/dL (40-59) 02/21/20 07:40 Cholesterol/HDL Ratio 3.04 % 02/21/20 07:40 Coronavirus (PCR) Negative (Negative) 02/24/20 10:00 - Diagnostic Impressions Diagnostic Impressions: Echocardiogram 02/18/20 18:21 Transthoracic Echocardiogram Indication: Stroke BP: 128/77 HR: 86 Conclusions *The left ventricular size is mild to moderately dilated. *Mild concentric left ventricular hypertrophy is observed. *Global left ventricular systolic function is moderate to severely decreased. *The estimated ejection fraction is 30-35%. *There is mild dilatation of the ascending aorta which measures 4.5 cm. The aortic root size is normal. *There is mild aortic regurgitation. *There is mild mitral regurgitation. *There is mild tricuspid regurgitation. *There is evidence of mild pulmonary hypertension. *The right ventricular systolic pressure is calculated at 34 mmHg. *A patent foramen ovale is not demonstrated by agitated saline contrast. Findings Left Ventricle: The left ventricular size is mild to moderately dilated. Mild concentric left ventricular hypertrophy is observed. Global left ventricular systolic function is moderate to severely decreased. The estimated ejection fraction is 30-35%. Left Atrium: The left atrium is mildly dilated. Right Ventricle: The right ventricle is slightly dilated. The right ventricular global systolic function is normal. Right Atrium: The right atrial cavity size is normal. A patent foramen ovale is not demonstrated by agitated saline contrast. Aortic Valve: The aortic valve is trileaflet. The aortic valve leaflets are mildly thickened. There is mild aortic regurgitation. There is no evidence of aortic stenosis. Mitral Valve: The mitral valve leaflets are mildly thickened. There is mild mitral regurgitation. There is no evidence of mitral stenosis. Tricuspid Valve: There is mild tricuspid regurgitation. The right ventricular systolic pressure is calculated at 34 mmHg. There is evidence of mild pulmonary hypertension. Pulmonic Valve: There is mild pulmonic regurgitation. Pericardium: There is no pericardial effusion. Aorta: There is mild dilatation of the ascending aorta. There is no dilatation of the aortic root. Venous: The inferior vena cava appears normal in size. Contrast: Intravenous agitated saline contrast was used to assess intracardiac shunting. Measurements Chambers 2D Name Value Normal Range IVSd (2D) 1 cm (0.6 - 1.1) LVPWd (2D) 0.97 cm (0.6 - 1.1) LVIDd (2D) 4.88 cm (3.7 - 5.6) LVIDs (2D) 3.72 cm (2 - 3.8) LV FS (2D) 23.84 % - EF Teichholz (2D) 47.42 % - Ao root diameter (2D) 3.55 cm (2 - 3.7) Volumes/Mass Name Value Normal Range LA ESV SP 4CH (A/L) 17.82 ml - LA ESV SP 2CH (A/L) 33.01 ml - LA ESV BP (A/L) 26.94 ml - LA ESV BP (A/L) index 15.57 ml/m2 - LA ESV SP 4CH (MOD) 17.8 ml - LA ESV SP 2CH (MOD) 30.25 ml - LA ESV BP (MOD) 25.48 ml - LA ESV BP (MOD) index 14.73 ml/m2 - Aortic Valve Name Value Normal Range AV Vmax 0.98 m/sec - AV VTI 20.8 cm - AV peak gradient 3.87 mmHg - AV mean gradient 2.15 mmHg - LVOT diameter 2.14 cm - LVOT Vmax 0.77 m/sec - LVOT VTI 12.22 cm - LVOT peak gradient 2.38 mmHg - LVOT mean gradient 1.25 mmHg - SV LVOT 43.78 ml - JAIME (continuity Vmax) 2.81 cm2 - JAIME (continuity VTI) 2.1 cm2 - Ascending Ao 4.53 cm - Tricuspid Valve Name Value Normal Range TR Vmax 2.78 m/sec - TR peak gradient 31 mmHg - RAP 3 mmHg - RVSP 34 mmHg - Pulmonic Valve/Qp:Qs Name Value Normal Range PV Vmax 0.78 m/sec - PV peak gradient 2.4 mmHg - PV acceleration time 79.92 msec - Wolff/IV: Voiding Method Incontinent IV Catheter Type [Left Forearm INT / Saline Lock ] IV Catheter Type [Right Peripheral IV Antecubital] Active Medications - Current Medications Current Medications: Generic Name Dose Route Start Last Admin Trade Name Freq PRN Reason Stop Dose Admin Acetaminophen 650 mg 02/18/20 18:20 Tylenol PO Q4H PRN Pain, Mild (1-3) Amlodipine Besylate 10 mg 02/21/20 15:00 02/26/20 10:33 Amlodipine PO 10 mg QDAY CELE Administration Atorvastatin Calcium 40 mg 02/18/20 22:00 02/26/20 21:38 Lipitor PO 40 mg QHS CELE Administration Bisacodyl 10 mg 02/18/20 18:20 Dulcolax [place] QDAY PRN Constipation Clopidogrel Bisulfate 75 mg 02/19/20 10:00 02/26/20 10:33 Plavix PO 75 mg QDAY CELE Administration Lisinopril 2.5 mg 02/25/20 10:00 02/26/20 10:33 Zestril PO 2.5 mg QDAY CELE Administration Magnesium Hydroxide 30 ml 02/18/20 18:20 Milk Of Magnesia PO Q4H PRN Constipation Metoclopramide HCl 5 mg 02/18/20 18:20 Reglan PO Q6H PRN Nausea And Vomiting Metoprolol Succinate 50 mg 02/21/20 10:00 02/26/20 10:34 Metoprolol Xl PO 50 mg QDAY CELE Administration Ondansetron HCl 4 mg 02/18/20 18:20 02/26/20 23:34 Zofran IV 4 mg Q8H PRN Administration Nausea And Vomiting Polyethylene Glycol 17 gm 02/23/20 11:00 02/26/20 10:33 Miralax 3350 PO 17 gm QDAY CELE Administration Promethazine HCl 25 mg 02/18/20 18:20 Phenergan [place] Q6H PRN Nausea And Vomiting Sodium Chloride 10 ml 02/18/20 18:20 Sodium Chloride Flush Syringe 10 Ml IV PRN PRN LINE FLUSH Tamsulosin HCl 0.4 mg 02/23/20 10:00 02/26/20 10:33 Flomax PO 0.4 mg QDAY CELE Administration Nutrition/Malnutrition Assess - Dietary Evaluation Nutrition/Malnutrition Findings: Nutrition Notes Start: 02/24/20 12:05 Freq: Status: Active Protocol: Document 02/24/20 12:05 MARTHA (Rec: 02/24/20 12:14 MARTHA [id number]) Co-Sign 02/24/20 12:05 LM Nutrition Notes Need for Assessment generated from: LOS Initial or Follow up Assessment Current Diagnosis Hypertension,Heart Failure, Stroke Other Pertinent Diagnosis cerebral atherosclerosis, pulmonary fibrosis, dementia Current Diet Cardiac Labs/Tests Na 136 BG 72 Pertinent Medications Miralax Height 5 ft 8 in Weight 61.5 kg Usual Body Weight 63.18 kg [place] Body Weight (kg) 70.00 BMI 20.6 Intake Prior to Admission Good Weight change and time frame 2.6% wt loss in 1 week Weight Status Underweight Subjective/Other Information Screened for LOS. Pt reports poor intakes and appetite. Pt states that most foods don't taste good. Burn Absent Trauma Absent Food Allergy No Current % PO Poor (25-49%) Minimum of two criteria Yes Interpretation of Weight Loss (severe) >2% in 1 week Body Fat Depletion Moderate depletion (severe) Muscle Mass Moderate Depletion (severe) Reduced Arch Pad Cementer Strength Measurably Reduced (severe) #2 Nutrition Diagnosis Inadequate oral intake Etiology decreased appetite, advanced age As Evidenced by Signs and Symptoms pt consuming < 50% meals #1 Nutrition Diagnosis Malnutrition Etiology decreased appetite, advanced age As Evidenced by Signs and Symptoms 2.6% wt loss x1 week, moderate muscle and fat depletion, BL weak cardiac/vascular sonographer strength Is patient on ventilator? No Is Patient Ambulatory and/or Out of Bed No REE-([facility]-confined to bed) 1530.924 Calculation Used for Recommendations [facility] Additional Notes Pro: 74-92 g (1.2-1.5 g/kg) Fluid: 1 ml/kcal Nutrition Intervention Change Diet Order: Continue Cardiac diet Add Supplement/Snack (indicate name/kcal Ensure Enlive [place] BID /protein ) Provides kCal: 700 Provides Protein (gm) 40 Goal #1 Meet at least 80% energy and protein needs via PO and ONS Goal #2 Wt gain/maintenance Anticipated Discharge Needs: Cardiac diet Follow-Up By: 02/28/20 Additional Comments F/U for intakes and ONS tolerance
[2020-02-27] MEDS: TAMSULOSIN 0.4 MG CAP PO SCH (10:06)
[2020-02-27] MEDS: METOPROLOL SUCCINATE XL 50 MG TAB PO SCH (10:06)
[2020-02-27] MEDS: LISINOPRIL 5 MG TAB PO SCH (10:06)
[2020-02-27] MEDS: POLYETHYLENE GLYCOL 3350 17 GM POWDER PO SCH (10:07)
[2020-02-27] MEDS: CLOPIDOGREL 75 MG TAB PO SCH (10:07)
[2020-02-27] MEDS: amLODIPine 10 MG TAB PO SCH (10:07)
[2020-02-28] MEDS ORDERED: METOPROLOL SUCCINATE XL 50 MG TAB PO ONE (09:39)
[2020-02-28] MEDS ORDERED: TAMSULOSIN 0.4 MG CAP PO ONE (09:39)
[2020-02-28] MEDS ORDERED: LISINOPRIL 5 MG TAB ONE (09:39)
[2020-02-28] MEDS ORDERED: amLODIPine 10 MG TAB ONE (09:39)
[2020-02-28] MEDS ORDERED: CLOPIDOGREL 75 MG TAB ONE (09:39)
[2020-02-28] MEDS ORDERED: POLYETHYLENE GLYCOL 3350 17 GM POWDER ONE (09:39)
--- NOTE | 2020-02-28 20:03 | Progress Note ---
Assessment and Plan Assessment and plan: -- Acute CVA (cerebrovascular accident) Current Visit: Yes Status: Acute Plan to address problem: Left hemiplegia improved MRI brain shows subacute infarct in the right basal ganglia. Echo - negative bubble study. Continue Plavix(patient is allergic to aspirin) and statins PT - recs subacute rehab awaiting placement Neurology evaluation appreciated --Hypertension Current Visit: Yes Status: Chronic Plan to address problem: Continue amlodipine -- Acute kidney injury Current Visit: Yes Status: Resolved Plan to address problem: Improved Secondary to vasomotor nephropathy. Resolved --Systolic heart failure Current Visit: Yes Status: Acute Plan to address problem: Continue current management Afterload reduction with ACEI Toprol low dose Cardiology follow up after discharge -- DVT prophylaxis Current Visit: Yes Status: Acute Plan to address problem: On heparin and GI prophylaxis -- Discharge planning issues Current Visit: Yes Status: Acute Plan to address problem: Dc when insurance approved transfer to facility Awaiting placement Plan of care reviewed with the patient his nurse and the case management History Interval history: I have seen and examined the patient at the bedside patient's chart and medications reviewed No new complaints vital signs stable Hospitalist Physical - Constitutional Vitals: Temp Pulse Resp BP Pulse Ox 98.5 F 79 18 99/56 97 02/27/20 22:19 02/27/20 22:19 02/27/20 22:19 02/27/20 22:19 02/27/20 22:19 General appearance: Present: no acute distress, cachectic, disheveled - EENT Eyes: Present: PERRL, EOM intact - Neck Neck: Present: supple, normal ROM - Respiratory Respiratory: bilateral: diminished, negative: rales, rhonchi, wheezing - Cardiovascular Rhythm: regular Heart Sounds: Present: S1 & S2 - Extremities Extremities: no ischemia, No edema Peripheral Pulses: within normal limits - Abdominal General gastrointestinal: soft, non-tender, non-distended, normal bowel sounds - Integumentary Integumentary: Present: clear, warm - Psychiatric Psychiatric: appropriate mood/affect, other (e) - Neurologic Neurologic: moves all extremities HEART Score - HEART Score Troponin: Troponin T < 0.010 ng/mL (0.00-0.029) 02/18/20 17:37 Results - Labs CBC & Chem 7: 02/25/20 17:09 02/25/20 17:09 Labs: Laboratory Last Values WBC 7.6 K/mm3 (4.5-11.0) 02/25/20 17:09 RBC 3.72 M/mm3 (3.65-5.03) 02/25/20 17:09 Hgb 11.3 gm/dl (11.8-15.2) L 02/25/20 17:09 Hct 33.4 % (35.5-45.6) L 02/25/20 17:09 MCV 90 fl (84-94) 02/25/20 17:09 MCH 30 pg (28-32) 02/25/20 17:09 MCHC 34 % (32-34) 02/25/20 17:09 RDW 15.1 % (13.2-15.2) 02/25/20 17:09 Plt Count 166 K/mm3 (140-440) 02/25/20 17:09 Lymph % (Auto) 11.2 % (13.4-35.0) L 02/25/20 17:09 [place] % (Auto) 8.1 % (0.0-7.3) H 02/25/20 17:09 Eos % (Auto) 1.9 % (0.0-4.3) 02/25/20 17:09 Baso % (Auto) 0.5 % (0.0-1.8) 02/25/20 17:09 Lymph # (Auto) 0.9 K/mm3 (1.2-5.4) L 02/25/20 17:09 [place] # (Auto) 0.6 K/mm3 (0.0-0.8) 02/25/20 17:09 Eos # (Auto) 0.1 K/mm3 (0.0-0.4) 02/25/20 17:09 Baso # (Auto) 0.0 K/mm3 (0.0-0.1) 02/25/20 17:09 Seg Neutrophils % 78.3 % (40.0-70.0) H 02/25/20 17:09 Seg Neutrophils # 6.0 K/mm3 (1.8-7.7) 02/25/20 17:09 PT 12.9 Sec. (12.2-14.9) 02/18/20 17:37 INR 0.95 (0.87-1.13) 02/18/20 17:37 APTT 32.8 Sec. (24.2-36.6) 02/18/20 17:37 Thrombin Time 16.0 Sec. (15.1-19.6) 02/18/20 17:37 Sodium 134 mmol/L (137-145) L 02/25/20 17:09 Potassium 4.1 mmol/L (3.6-5.0) 02/25/20 17:09 Chloride 99.9 mmol/L (98-107) 02/25/20 17:09 Carbon Dioxide 24 mmol/L (22-30) D 02/25/20 17:09 Anion Gap 14 mmol/L 02/25/20 17:09 BUN 32 mg/dL (9-20) H 02/25/20 17:09 Creatinine 1.2 mg/dL (0.8-1.3) 02/25/20 17:09 Estimated GFR 57 ml/min 02/25/20 17:09 BUN/Creatinine Ratio 27 % 02/25/20 17:09 Glucose 102 mg/dL (75-100) H 02/25/20 17:09 POC Glucose 79 (70-105) 02/20/20 08:07 Calcium 9.0 mg/dL (8.4-10.2) 02/25/20 17:09 Magnesium 1.80 mg/dL (1.7-2.3) 02/25/20 17:09 Total Bilirubin 0.30 mg/dL (0.1-1.2) 02/25/20 17:09 AST 11 units/L (5-40) 02/25/20 17:09 ALT 7 units/L (7-56) 02/25/20 17:09 Alkaline Phosphatase 90 units/L (35-129) 02/25/20 17:09 Troponin T < 0.010 ng/mL (0.00-0.029) 02/18/20 17:37 Total Protein 6.0 g/dL (6.3-8.2) L 02/25/20 17:09 Albumin 3.1 g/dL (3.9-5) L 02/25/20 17:09 Albumin/Globulin Ratio 1.1 % 02/25/20 17:09 Triglycerides 86 mg/dL (2-149) 02/21/20 07:40 Cholesterol 152 mg/dL (50-199) 02/21/20 07:40 LDL Cholesterol Direct 95 mg/dL (50-130) 02/21/20 07:40 HDL Cholesterol 50 mg/dL (40-59) 02/21/20 07:40 Cholesterol/HDL Ratio 3.04 % 02/21/20 07:40 Coronavirus (PCR) Negative (Negative) 02/24/20 10:00 - Diagnostic Impressions Diagnostic Impressions: Echocardiogram 02/18/20 18:21 Transthoracic Echocardiogram Indication: Stroke BP: 128/77 HR: 86 Conclusions *The left ventricular size is mild to moderately dilated. *Mild concentric left ventricular hypertrophy is observed. *Global left ventricular systolic function is moderate to severely decreased. *The estimated ejection fraction is 30-35%. *There is mild dilatation of the ascending aorta which measures 4.5 cm. The aortic root size is normal. *There is mild aortic regurgitation. *There is mild mitral regurgitation. *There is mild tricuspid regurgitation. *There is evidence of mild pulmonary hypertension. *The right ventricular systolic pressure is calculated at 34 mmHg. *A patent foramen ovale is not demonstrated by agitated saline contrast. Findings Left Ventricle: The left ventricular size is mild to moderately dilated. Mild concentric left ventricular hypertrophy is observed. Global left ventricular systolic function is moderate to severely decreased. The estimated ejection fraction is 30-35%. Left Atrium: The left atrium is mildly dilated. Right Ventricle: The right ventricle is slightly dilated. The right ventricular global systolic function is normal. Right Atrium: The right atrial cavity size is normal. A patent foramen ovale is not demonstrated by agitated saline contrast. Aortic Valve: The aortic valve is trileaflet. The aortic valve leaflets are mildly thickened. There is mild aortic regurgitation. There is no evidence of aortic stenosis. Mitral Valve: The mitral valve leaflets are mildly thickened. There is mild mitral regurgitation. There is no evidence of mitral stenosis. Tricuspid Valve: There is mild tricuspid regurgitation. The right ventricular systolic pressure is calculated at 34 mmHg. There is evidence of mild pulmonary hypertension. Pulmonic Valve: There is mild pulmonic regurgitation. Pericardium: There is no pericardial effusion. Aorta: There is mild dilatation of the ascending aorta. There is no dilatation of the aortic root. Venous: The inferior vena cava appears normal in size. Contrast: Intravenous agitated saline contrast was used to assess intracardiac shunting. Measurements Chambers 2D Name Value Normal Range IVSd (2D) 1 cm (0.6 - 1.1) LVPWd (2D) 0.97 cm (0.6 - 1.1) LVIDd (2D) 4.88 cm (3.7 - 5.6) LVIDs (2D) 3.72 cm (2 - 3.8) LV FS (2D) 23.84 % - EF Teichholz (2D) 47.42 % - Ao root diameter (2D) 3.55 cm (2 - 3.7) Volumes/Mass Name Value Normal Range LA ESV SP 4CH (A/L) 17.82 ml - LA ESV SP 2CH (A/L) 33.01 ml - LA ESV BP (A/L) 26.94 ml - LA ESV BP (A/L) index 15.57 ml/m2 - LA ESV SP 4CH (MOD) 17.8 ml - LA ESV SP 2CH (MOD) 30.25 ml - LA ESV BP (MOD) 25.48 ml - LA ESV BP (MOD) index 14.73 ml/m2 - Aortic Valve Name Value Normal Range AV Vmax 0.98 m/sec - AV VTI 20.8 cm - AV peak gradient 3.87 mmHg - AV mean gradient 2.15 mmHg - LVOT diameter 2.14 cm - LVOT Vmax 0.77 m/sec - LVOT VTI 12.22 cm - LVOT peak gradient 2.38 mmHg - LVOT mean gradient 1.25 mmHg - SV LVOT 43.78 ml - JAIME (continuity Vmax) 2.81 cm2 - JAIME (continuity VTI) 2.1 cm2 - Ascending Ao 4.53 cm - Tricuspid Valve Name Value Normal Range TR Vmax 2.78 m/sec - TR peak gradient 31 mmHg - RAP 3 mmHg - RVSP 34 mmHg - Pulmonic Valve/Qp:Qs Name Value Normal Range PV Vmax 0.78 m/sec - PV peak gradient 2.4 mmHg - PV acceleration time 79.92 msec - Wolff/IV: Voiding Method Incontinent IV Catheter Type [Left Forearm INT / Saline Lock ] IV Catheter Type [Right Peripheral IV Antecubital] Active Medications - Current Medications Current Medications: Generic Name Dose Route Start Last Admin Trade Name Freq PRN Reason Stop Dose Admin Acetaminophen 650 mg 02/18/20 18:20 Tylenol PO Q4H PRN Pain, Mild (1-3) Amlodipine Besylate 10 mg 02/21/20 15:00 02/27/20 10:07 Amlodipine PO 10 mg QDAY CELE Administration Atorvastatin Calcium 40 mg 02/18/20 22:00 02/27/20 21:32 Lipitor PO 40 mg QHS CELE Administration Bisacodyl 10 mg 02/18/20 18:20 Dulcolax [place] QDAY PRN Constipation Clopidogrel Bisulfate 75 mg 02/19/20 10:00 02/27/20 10:07 Plavix PO 75 mg QDAY CELE Administration Lisinopril 2.5 mg 02/25/20 10:00 02/27/20 10:06 Zestril PO 2.5 mg QDAY CELE Administration Magnesium Hydroxide 30 ml 02/18/20 18:20 Milk Of Magnesia PO Q4H PRN Constipation Metoclopramide HCl 5 mg 02/18/20 18:20 Reglan PO Q6H PRN Nausea And Vomiting Metoprolol Succinate 50 mg 02/21/20 10:00 02/27/20 10:06 Metoprolol Xl PO 50 mg QDAY CELE Administration Ondansetron HCl 4 mg 02/18/20 18:20 02/26/20 23:34 Zofran IV 4 mg Q8H PRN Administration Nausea And Vomiting Polyethylene Glycol 17 gm 02/23/20 11:00 02/27/20 10:07 Miralax 3350 PO 17 gm QDAY CELE Administration Promethazine HCl 25 mg 02/18/20 18:20 Phenergan [place] Q6H PRN Nausea And Vomiting Sodium Chloride 10 ml 02/18/20 18:20 Sodium Chloride Flush Syringe 10 Ml IV PRN PRN LINE FLUSH Tamsulosin HCl 0.4 mg 02/23/20 10:00 02/27/20 10:06 Flomax PO 0.4 mg QDAY CELE Administration Nutrition/Malnutrition Assess - Dietary Evaluation Nutrition/Malnutrition Findings: Nutrition Notes Start: 02/24/20 12 :05 Freq: Status: Active Protocol: Document 02/24/20 12:05 MARTHA (Rec: 02/24/20 12:14 MARTHA [id number]) Co-Sign 02/24/20 12:05 LM Nutrition Notes Need for Assessment generated from: LOS Initial or Follow up Assessment Current Diagnosis Hypertension,Heart Failure, Stroke Other Pertinent Diagnosis cerebral atherosclerosis, pulmonary fibrosis, dementia Current Diet Cardiac Labs/Tests Na 136 BG 72 Pertinent Medications Miralax Height 5 ft 8 in Weight 61.5 kg Usual Body Weight 63.18 kg [place] Body Weight (kg) 70.00 BMI 20.6 Intake Prior to Admission Good Weight change and time frame 2.6% wt loss in 1 week Weight Status Underweight Subjective/Other Information Screened for LOS. Pt reports poor intakes and appetite. Pt states that most foods don't taste good. Burn Absent Trauma Absent Food Allergy No Current % PO Poor (25-49%) Minimum of two criteria Yes Interpretation of Weight Loss (severe) >2% in 1 week Body Fat Depletion Moderate depletion (severe) Muscle Mass Moderate Depletion (severe) Reduced Switchboard Operator Supervisor Strength Measurably Reduced (severe) #2 Nutrition Diagnosis Inadequate oral intake Etiology decreased appetite, advanced age As Evidenced by Signs and Symptoms pt consuming < 50% meals #1 Nutrition Diagnosis Malnutrition Etiology decreased appetite, advanced age As Evidenced by Signs and Symptoms 2.6% wt loss x1 week, moderate muscle and fat depletion, BL weak plumbing manager strength Is patient on ventilator? No Is Patient Ambulatory and/or Out of Bed No REE-([facility]-confined to bed) 1530.927 Calculation Used for Recommendations [facility] Additional Notes Pro: 74-92 g (1.2-1.5 g/kg) Fluid: 1 ml/kcal Nutrition Intervention Change Diet Order: Continue Cardiac diet Add Supplement/Snack (indicate name/kcal Ensure Enlive [place] BID /protein ) Provides kCal: 700 Provides Protein (gm) 40 Goal #1 Meet at least 80% energy and protein needs via PO and ONS Goal #2 Wt gain/maintenance Anticipated Discharge Needs: Cardiac diet Follow-Up By: 02/28/20 Additional Comments F/U for intakes and ONS tolerance
[2020-02-29] MEDS: amLODIPine 10 MG TAB PO SCH ×2 (07:42→09:57)
[2020-02-29] MEDS: POLYETHYLENE GLYCOL 3350 17 GM POWDER PO SCH ×3 (07:43→10:10)
[2020-02-29] MEDS: TAMSULOSIN 0.4 MG CAP PO SCH ×2 (07:43→09:58)
[2020-02-29] MEDS: METOPROLOL SUCCINATE XL 50 MG TAB PO SCH ×2 (07:43→09:58)
[2020-02-29] MEDS: LISINOPRIL 5 MG TAB PO SCH ×2 (07:43→09:57)
[2020-02-29] MEDS: CLOPIDOGREL 75 MG TAB PO SCH ×2 (07:43→09:58)
[2020-02-29] MEDS: ACETAMINOPHEN 325 MG TAB PO PRN (09:58)
--- NOTE | 2020-02-29 10:32 | Progress Note ---
Assessment and Plan Assessment and plan: --COVID-19 negative-02/24/2020. Awaiting placement to SNF/rehab -- Acute CVA (cerebrovascular accident) Current Visit: Yes Status: Acute Plan to address problem: Patient stable on medications left hemiplegia improved MRI brain shows subacute infarct in the right basal ganglia. Echo - negative bubble study. Continue Plavix(patient is allergic to aspirin) and statins PT - recs subacute rehab awaiting placement Neurology evaluation appreciated --Hypertension Current Visit: Yes Status: Chronic Plan to address problem: Continue amlodipine -- Acute kidney injury Current Visit: Yes Status: Resolved Plan to address problem: Improved Secondary to vasomotor nephropathy. Resolved --Systolic heart failure Current Visit: Yes Status: Acute Plan to address problem: Continue current management Afterload reduction with ACEI Toprol low dose Cardiology follow up after discharge -- DVT prophylaxis Current Visit: Yes Status: Acute Plan to address problem: On heparin and GI prophylaxis -- Discharge planning issues Current Visit: Yes Status: Acute Plan to address problem: Dc when insurance approved transfer to facility Awaiting placement Plan of care reviewed with the patient his nurse and the case management History Interval history: I have seen and examined the patient at the bedside Patient's chart and medications reviewed Patient is medically stable for discharge Awaiting placement No new complaints Vital signs reviewed Hospitalist Physical - Constitutional Vitals: Temp Pulse Resp BP Pulse Ox 97.6 F 108 H 16 133/61 99 02/29/20 08:00 02/29/20 08:00 02/29/20 08:00 02/29/20 08:00 02/29/20 08:00 General appearance: Present: no acute distress, well-nourished - EENT Eyes: Present: PERRL, EOM intact - Neck Neck: Present: supple, normal ROM - Respiratory Respiratory effort: normal Respiratory: bilateral: diminished, negative: rales, rhonchi, wheezing - Cardiovascular Rhythm: regular Heart Sounds: Present: S1 & S2 - Extremities Extremities: no ischemia, No edema - Abdominal General gastrointestinal: soft, non-tender, non-distended, normal bowel sounds - Integumentary Integumentary: Present: clear, warm - Psychiatric Psychiatric: appropriate mood/affect, cooperative - Neurologic Neurologic: other (Left hemiparesis) HEART Score - HEART Score Troponin: Troponin T < 0.010 ng/mL (0.00-0.029) 02/18/20 17:37 Results - Labs CBC & Chem 7: 02/25/20 17:09 02/25/20 17:09 Labs: Laboratory Last Values WBC 7.6 K/mm3 (4.5-11.0) 02/25/20 17:09 RBC 3.72 M/mm3 (3.65-5.03) 02/25/20 17:09 Hgb 11.3 gm/dl (11.8-15.2) L 02/25/20 17:09 Hct 33.4 % (35.5-45.6) L 02/25/20 17:09 MCV 90 fl (84-94) 02/25/20 17:09 MCH 30 pg (28-32) 02/25/20 17:09 MCHC 34 % (32-34) 02/25/20 17:09 RDW 15.1 % (13.2-15.2) 02/25/20 17:09 Plt Count 166 K/mm3 (140-440) 02/25/20 17:09 Lymph % (Auto) 11.2 % (13.4-35.0) L 02/25/20 17:09 [place] % (Auto) 8.1 % (0.0-7.3) H 02/25/20 17:09 Eos % (Auto) 1.9 % (0.0-4.3) 02/25/20 17:09 Baso % (Auto) 0.5 % (0.0-1.8) 02/25/20 17:09 Lymph # (Auto) 0.9 K/mm3 (1.2-5.4) L 02/25/20 17:09 [place] # (Auto) 0.6 K/mm3 (0.0-0.8) 02/25/20 17:09 Eos # (Auto) 0.1 K/mm3 (0.0-0.4) 02/25/20 17:09 Baso # (Auto) 0.0 K/mm3 (0.0-0.1) 02/25/20 17:09 Seg Neutrophils % 78.3 % (40.0-70.0) H 02/25/20 17:09 Seg Neutrophils # 6.0 K/mm3 (1.8-7.7) 02/25/20 17:09 PT 12.9 Sec. (12.2-14.9) 02/18/20 17:37 INR 0.95 (0.87-1.13) 02/18/20 17:37 APTT 32.8 Sec. (24.2-36.6) 02/18/20 17:37 Thrombin Time 16.0 Sec. (15.1-19.6) 02/18/20 17:37 Sodium 134 mmol/L (137-145) L 02/25/20 17:09 Potassium 4.1 mmol/L (3.6-5.0) 02/25/20 17:09 Chloride 99.9 mmol/L (98-107) 02/25/20 17:09 Carbon Dioxide 24 mmol/L (22-30) D 02/25/20 17:09 Anion Gap 14 mmol/L 02/25/20 17:09 BUN 32 mg/dL (9-20) H 02/25/20 17:09 Creatinine 1.2 mg/dL (0.8-1.3) 02/25/20 17:09 Estimated GFR 57 ml/min 02/25/20 17:09 BUN/Creatinine Ratio 27 % 02/25/20 17:09 Glucose 102 mg/dL (75-100) H 02/25/20 17:09 POC Glucose 79 (70-105) 02/20/20 08:07 Calcium 9.0 mg/dL (8.4-10.2) 02/25/20 17:09 Magnesium 1.80 mg/dL (1.7-2.3) 02/25/20 17:09 Total Bilirubin 0.30 mg/dL (0.1-1.2) 02/25/20 17:09 AST 11 units/L (5-40) 02/25/20 17:09 ALT 7 units/L (7-56) 02/25/20 17:09 Alkaline Phosphatase 90 units/L (35-129) 02/25/20 17:09 Troponin T < 0.010 ng/mL (0.00-0.029) 02/18/20 17:37 Total Protein 6.0 g/dL (6.3-8.2) L 02/25/20 17:09 Albumin 3.1 g/dL (3.9-5) L 02/25/20 17:09 Albumin/Globulin Ratio 1.1 % 02/25/20 17:09 Triglycerides 86 mg/dL (2-149) 02/21/20 07:40 Cholesterol 152 mg/dL (50-199) 02/21/20 07:40 LDL Cholesterol Direct 95 mg/dL (50-130) 02/21/20 07:40 HDL Cholesterol 50 mg/dL (40-59) 02/21/20 07:40 Cholesterol/HDL Ratio 3.04 % 02/21/20 07:40 Coronavirus (PCR) Negative (Negative) 02/24/20 10:00 - Diagnostic Impressions Diagnostic Impressions: Echocardiogram 02/18/20 18:21 Transthoracic Echocardiogram Indication: Stroke BP: 128/77 HR: 86 Conclusions *The left ventricular size is mild to moderately dilated. *Mild concentric left ventricular hypertrophy is observed. *Global left ventricular systolic function is moderate to severely decreased. *The estimated ejection fraction is 30-35%. *There is mild dilatation of the ascending aorta which measures 4.5 cm. The aortic root size is normal. *There is mild aortic regurgitation. *There is mild mitral regurgitation. *There is mild tricuspid regurgitation. *There is evidence of mild pulmonary hypertension. *The right ventricular systolic pressure is calculated at 34 mmHg. *A patent foramen ovale is not demonstrated by agitated saline contrast. Findings Left Ventricle: The left ventricular size is mild to moderately dilated. Mild concentric left ventricular hypertrophy is observed. Global left ventricular systolic function is moderate to severely decreased. The estimated ejection fraction is 30-35%. Left Atrium: The left atrium is mildly dilated. Right Ventricle: The right ventricle is slightly dilated. The right ventricular global systolic function is normal. Right Atrium: The right atrial cavity size is normal. A patent foramen ovale is not demonstrated by agitated saline contrast. Aortic Valve: The aortic valve is trileaflet. The aortic valve leaflets are mildly thickened. There is mild aortic regurgitation. There is no evidence of aortic stenosis. Mitral Valve: The mitral valve leaflets are mildly thickened. There is mild mitral regurgitation. There is no evidence of mitral stenosis. Tricuspid Valve: There is mild tricuspid regurgitation. The right ventricular systolic pressure is calculated at 34 mmHg. There is evidence of mild pulmonary hypertension. Pulmonic Valve: There is mild pulmonic regurgitation. Pericardium: There is no pericardial effusion. Aorta: There is mild dilatation of the ascending aorta. There is no dilatation of the aortic root. Venous: The inferior vena cava appears normal in size. Contrast: Intravenous agitated saline contrast was used to assess intracardiac shunting. Measurements Chambers 2D Name Value Normal Range IVSd (2D) 1 cm (0.6 - 1.1) LVPWd (2D) 0.97 cm (0.6 - 1.1) LVIDd (2D) 4.88 cm (3.7 - 5.6) LVIDs (2D) 3.72 cm (2 - 3.8) LV FS (2D) 23.84 % - EF Teichholz (2D) 47.42 % - Ao root diameter (2D) 3.55 cm (2 - 3.7) Volumes/Mass Name Value Normal Range LA ESV SP 4CH (A/L) 17.82 ml - LA ESV SP 2CH (A/L) 33.01 ml - LA ESV BP (A/L) 26.94 ml - LA ESV BP (A/L) index 15.57 ml/m2 - LA ESV SP 4CH (MOD) 17.8 ml - LA ESV SP 2CH (MOD) 30.25 ml - LA ESV BP (MOD) 25.48 ml - LA ESV BP (MOD) index 14.73 ml/m2 - Aortic Valve Name Value Normal Range AV Vmax 0.98 m/sec - AV VTI 20.8 cm - AV peak gradient 3.87 mmHg - AV mean gradient 2.15 mmHg - LVOT diameter 2.14 cm - LVOT Vmax 0.77 m/sec - LVOT VTI 12.22 cm - LVOT peak gradient 2.38 mmHg - LVOT mean gradient 1.25 mmHg - SV LVOT 43.78 ml - JAIME (continuity Vmax) 2.81 cm2 - JAIME (continuity VTI) 2.1 cm2 - Ascending Ao 4.53 cm - Tricuspid Valve Name Value Normal Range TR Vmax 2.78 m/sec - TR peak gradient 31 mmHg - RAP 3 mmHg - RVSP 34 mmHg - Pulmonic Valve/Qp:Qs Name Value Normal Range PV Vmax 0.78 m/sec - PV peak gradient 2.4 mmHg - PV acceleration time 79.92 msec - Wolff/IV: Voiding Method Incontinent IV Catheter Type [Left Forearm INT / Saline Lock ] IV Catheter Type [Right Peripheral IV Antecubital] Active Medications - Current Medications Current Medications: Generic Name Dose Route Start Last Admin Trade Name Freq PRN Reason Stop Dose Admin Acetaminophen 650 mg 02/18/20 18:20 02/29/20 09:58 Tylenol PO 650 mg Q4H PRN Administration Pain, Mild (1-3) Amlodipine Besylate 10 mg 02/21/20 15:00 02/29/20 09:57 Amlodipine PO 10 mg QDAY CELE Administration Atorvastatin Calcium 40 mg 02/18/20 22:00 02/28/20 21:31 Lipitor PO 40 mg QHS CELE Administration Bisacodyl 10 mg 02/18/20 18:20 Dulcolax MD QDAY PRN Constipation Clopidogrel Bisulfate 75 mg 02/19/20 10:00 02/29/20 09:58 Plavix PO 75 mg QDAY CELE Administration Lisinopril 2.5 mg 02/25/20 10:00 02/29/20 09:57 Zestril PO 2.5 mg QDAY CELE Administration Magnesium Hydroxide 30 ml 02/18/20 18:20 Milk Of Magnesia PO Q4H PRN Constipation Metoclopramide HCl 5 mg 02/18/20 18:20 Reglan PO Q6H PRN Nausea And Vomiting Metoprolol Succinate 50 mg 02/21/20 10:00 02/29/20 09:58 Metoprolol Xl PO 50 mg QDAY CELE Administration Ondansetron HCl 4 mg 02/18/20 18:20 02/26/20 23:34 Zofran IV 4 mg Q8H PRN Administration Nausea And Vomiting Polyethylene Glycol 17 gm 02/23/20 11:00 02/29/20 10:10 Miralax 3350 PO Not Given QDAY CELE Promethazine HCl 25 mg 02/18/20 18:20 Phenergan MD Q6H PRN Nausea And Vomiting Sodium Chloride 10 ml 02/18/20 18:20 Sodium Chloride Flush Syringe 10 Ml IV PRN PRN LINE FLUSH Tamsulosin HCl 0.4 mg 02/23/20 10:00 02/29/20 09:58 Flomax PO 0.4 mg QDAY CELE Administration Nutrition/Malnutrition Assess - Dietary Evaluation Nutrition/Malnutrition Findings: Nutrition Notes Start: 02/24/20 12:05 Freq: Status: Active Protocol: Document 02/24/20 12:05 MARTHA (Rec: 02/24/20 12:14 MARTHA [id number]) Co-Sign 02/24/20 12:05 LM Nutrition Notes Need for Assessment generated from: LOS Initial or Follow up Assessment Current Diagnosis Hypertension,Heart Failure, Stroke Other Pertinent Diagnosis cerebral atherosclerosis, pulmonary fibrosis, dementia Current Diet Cardiac Labs/Tests Na 136 BG 72 Pertinent Medications Miralax Height 5 ft 8 in Weight 61.5 kg Usual Body Weight 63.18 kg [place] Body Weight (kg) 70.00 BMI 20.6 Intake Prior to Admission Good Weight change and time frame 2.6% wt loss in 1 week Weight Status Underweight Subjective/Other Information Screened for LOS. Pt reports poor intakes and appetite. Pt states that most foods don't taste good. Burn Absent Trauma Absent Food Allergy No Current % PO Poor (25-49%) Minimum of two criteria Yes Interpretation of Weight Loss (severe) >2% in 1 week Body Fat Depletion Moderate depletion (severe) Muscle Mass Moderate Depletion (severe) Reduced Maintenance Technician Strength Measurably Reduced (severe) #2 Nutrition Diagnosis Inadequate oral intake Etiology decreased appetite, advanced age As Evidenced by Signs and Symptoms pt consuming < 50% meals #1 Nutrition Diagnosis Malnutrition Etiology decreased appetite, advanced age As Evidenced by Signs and Symptoms 2.6% wt loss x1 week, moderate muscle and fat depletion, 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 No Is Patient Ambulatory and/or Out of Bed No REE-([facility]-confined to bed) [phone] Calculation Used for Recommendations [facility] [place] Additional Notes Pro: 74-92 g (1.2-1.5 g/kg) Fluid: 1 ml/kcal Nutrition Intervention Change Diet Order: Continue Cardiac diet Add Supplement/Snack (indicate name/kcal Ensure Enlive [place] BID /protein ) Provides kCal: 700 Provides Protein (gm) 40 Goal #1 Meet at least 80% energy and protein needs via PO and ONS Goal #2 Wt gain/maintenance Anticipated Discharge Needs: Cardiac diet Follow-Up By: 02/28/20 Additional Comments F/U for intakes and ONS tolerance
[2020-03-01] MEDS: METOPROLOL SUCCINATE XL 50 MG TAB PO SCH (11:00)
[2020-03-01] MEDS: POLYETHYLENE GLYCOL 3350 17 GM POWDER PO SCH (11:01)
[2020-03-01] MEDS: LISINOPRIL 5 MG TAB PO SCH (11:01)
[2020-03-01] MEDS: amLODIPine 10 MG TAB PO SCH (11:04)
[2020-03-01] MEDS: TAMSULOSIN 0.4 MG CAP PO SCH (11:04)
[2020-03-01] MEDS: CLOPIDOGREL 75 MG TAB PO SCH (11:04)
[2020-03-01] MEDS: ACETAMINOPHEN 325 MG TAB PO PRN (11:05)
--- NOTE | 2020-03-01 17:29 | Event Note ---
Date: 03/01/20 I called [facility] [phone] for P2P discussion regarding subacute placement recommended by PT. Office was closed, and we will try to call again tomorrow
--- NOTE | 2020-03-01 20:46 | Progress Note ---
Assessment and Plan Assessment and plan: --COVID-19 negative-02/24/2020. Awaiting placement to SNF/rehab -- Acute CVA (cerebrovascular accident) Current Visit: Yes Status: Acute Plan to address problem: Patient stable on medications left hemiplegia improved MRI brain shows subacute infarct in the right basal ganglia. Echo - negative bubble study. Continue Plavix(patient is allergic to aspirin) and statins PT - recs subacute rehab awaiting placement Neurology evaluation appreciated --Hypertension Current Visit: Yes Status: Chronic Plan to address problem: Continue amlodipine -- Acute kidney injury Current Visit: Yes Status: Resolved Plan to address problem: Improved Secondary to vasomotor nephropathy. Resolved --Systolic heart failure Current Visit: Yes Status: Acute Plan to address problem: Continue current management Afterload reduction with ACEI Toprol low dose Cardiology follow up after discharge -- DVT prophylaxis Current Visit: Yes Status: Acute Plan to address problem: On heparin and GI prophylaxis -- Discharge planning issues Current Visit: Yes Status: Acute Plan to address problem: Dc when insurance approved transfer to facility Awaiting placement Plan of care reviewed with the patient his nurse and the case management History Interval history: Patient has no new complaints Vital signs noted awaiting plcment Hospitalist Physical - Constitutional Vitals: Temp Pulse Resp BP Pulse Ox 98.1 F 74 20 105/55 98 03/01/20 16:35 03/01/20 16:35 03/01/20 16:35 03/01/20 16:35 03/01/20 16:35 General appearance: Present: no acute distress, well-nourished - EENT Eyes: Present: PERRL, EOM intact - Neck Neck: Present: supple, normal ROM - Respiratory Respiratory effort: normal Respiratory: bilateral: diminished, negative: rales, rhonchi, wheezing - Cardiovascular Rhythm: regular Heart Sounds: Present: S1 & S2 - Extremities Extremities: no ischemia, No edema Peripheral Pulses: within normal limits - Abdominal General gastrointestinal: soft, non-tender, non-distended, normal bowel sounds - Integumentary Integumentary: Present: clear, warm - Psychiatric Psychiatric: appropriate mood/affect, cooperative - Neurologic Neurologic: moves all extremities HEART Score - HEART Score Troponin: Troponin T < 0.010 ng/mL (0.00-0.029) 02/18/20 17:37 Results - Labs CBC & Chem 7: 02/25/20 17:09 02/25/20 17:09 Labs: Laboratory Last Values WBC 7.6 K/mm3 (4.5-11.0) 02/25/20 17:09 RBC 3.72 M/mm3 (3.65-5.03) 02/25/20 17:09 Hgb 11.3 gm/dl (11.8-15.2) L 02/25/20 17:09 Hct 33.4 % (35.5-45.6) L 02/25/20 17:09 MCV 90 fl (84-94) 02/25/20 17:09 MCH 30 pg (28-32) 02/25/20 17:09 MCHC 34 % (32-34) 02/25/20 17:09 RDW 15.1 % (13.2-15.2) 02/25/20 17:09 Plt Count 166 K/mm3 (140-440) 02/25/20 17:09 Lymph % (Auto) 11.2 % (13.4-35.0) L 02/25/20 17:09 [place] % (Auto) 8.1 % (0.0-7.3) H 02/25/20 17:09 Eos % (Auto) 1.9 % (0.0-4.3) 02/25/20 17:09 Baso % (Auto) 0.5 % (0.0-1.8) 02/25/20 17:09 Lymph # (Auto) 0.9 K/mm3 (1.2-5.4) L 02/25/20 17:09 [place] # (Auto) 0.6 K/mm3 (0.0-0.8) 02/25/20 17:09 Eos # (Auto) 0.1 K/mm3 (0.0-0.4) 02/25/20 17:09 Baso # (Auto) 0.0 K/mm3 (0.0-0.1) 02/25/20 17:09 Seg Neutrophils % 78.3 % (40.0-70.0) H 02/25/20 17:09 Seg Neutrophils # 6.0 K/mm3 (1.8-7.7) 02/25/20 17:09 PT 12.9 Sec. (12.2-14.9) 02/18/20 17:37 INR 0.95 (0.87-1.13) 02/18/20 17:37 APTT 32.8 Sec. (24.2-36.6) 02/18/20 17:37 Thrombin Time 16.0 Sec. (15.1-19.6) 02/18/20 17:37 Sodium 134 mmol/L (137-145) L 02/25/20 17:09 Potassium 4.1 mmol/L (3.6-5.0) 02/25/20 17:09 Chloride 99.9 mmol/L (98-107) 02/25/20 17:09 Carbon Dioxide 24 mmol/L (22-30) D 02/25/20 17:09 Anion Gap 14 mmol/L 02/25/20 17:09 BUN 32 mg/dL (9-20) H 02/25/20 17:09 Creatinine 1.2 mg/dL (0.8-1.3) 02/25/20 17:09 Estimated GFR 57 ml/min 02/25/20 17:09 BUN/Creatinine Ratio 27 % 02/25/20 17:09 Glucose 102 mg/dL (75-100) H 02/25/20 17:09 POC Glucose 79 (70-105) 02/20/20 08:07 Calcium 9.0 mg/dL (8.4-10.2) 02/25/20 17:09 Magnesium 1.80 mg/dL (1.7-2.3) 02/25/20 17:09 Total Bilirubin 0.30 mg/dL (0.1-1.2) 02/25/20 17:09 AST 11 units/L (5-40) 02/25/20 17:09 ALT 7 units/L (7-56) 02/25/20 17:09 Alkaline Phosphatase 90 units/L (35-129) 02/25/20 17:09 Troponin T < 0.010 ng/mL (0.00-0.029) 02/18/20 17:37 Total Protein 6.0 g/dL (6.3-8.2) L 02/25/20 17:09 Albumin 3.1 g/dL (3.9-5) L 02/25/20 17:09 Albumin/Globulin Ratio 1.1 % 02/25/20 17:09 Triglycerides 86 mg/dL (2-149) 02/21/20 07:40 Cholesterol 152 mg/dL (50-199) 02/21/20 07:40 LDL Cholesterol Direct 95 mg/dL (50-130) 02/21/20 07:40 HDL Cholesterol 50 mg/dL (40-59) 02/21/20 07:40 Cholesterol/HDL Ratio 3.04 % 02/21/20 07:40 Coronavirus (PCR) Negative (Negative) 02/24/20 10:00 - Diagnostic Impressions Diagnostic Impressions: Echocardiogram 02/18/20 18:21 Transthoracic Echocardiogram Indication: Stroke BP: 128/77 HR: 86 Conclusions *The left ventricular size is mild to moderately dilated. *Mild concentric left ventricular hypertrophy is observed. *Global left ventricular systolic function is moderate to severely decreased. *The estimated ejection fraction is 30-35%. *There is mild dilatation of the ascending aorta which measures 4.5 cm. The aortic root size is normal. *There is mild aortic regurgitation. *There is mild mitral regurgitation. *There is mild tricuspid regurgitation. *There is evidence of mild pulmonary hypertension. *The right ventricular systolic pressure is calculated at 34 mmHg. *A patent foramen ovale is not demonstrated by agitated saline contrast. Findings Left Ventricle: The left ventricular size is mild to moderately dilated. Mild concentric left ventricular hypertrophy is observed. Global left ventricular systolic function is moderate to severely decreased. The estimated ejection fraction is 30-35%. Left Atrium: The left atrium is mildly dilated. Right Ventricle: The right ventricle is slightly dilated. The right ventricular global systolic function is normal. Right Atrium: The right atrial cavity size is normal. A patent foramen ovale is not demonstrated by agitated saline contrast. Aortic Valve: The aortic valve is trileaflet. The aortic valve leaflets are mildly thickened. There is mild aortic regurgitation. There is no evidence of aortic stenosis. Mitral Valve: The mitral valve leaflets are mildly thickened. There is mild mitral regurgitation. There is no evidence of mitral stenosis. Tricuspid Valve: There is mild tricuspid regurgitation. The right ventricular systolic pressure is calculated at 34 mmHg. There is evidence of mild pulmonary hypertension. Pulmonic Valve: There is mild pulmonic regurgitation. Pericardium: There is no pericardial effusion. Aorta: There is mild dilatation of the ascending aorta. There is no dilatation of the aortic root. Venous: The inferior vena cava appears normal in size. Contrast: Intravenous agitated saline contrast was used to assess intracardiac shunting. Measurements Chambers 2D Name Value Normal Range IVSd (2D) 1 cm (0.6 - 1.1) LVPWd (2D) 0.97 cm (0.6 - 1.1) LVIDd (2D) 4.88 cm (3.7 - 5.6) LVIDs (2D) 3.72 cm (2 - 3.8) LV FS (2D) 23.84 % - EF Teichholz (2D) 47.42 % - Ao root diameter (2D) 3.55 cm (2 - 3.7) Volumes/Mass Name Value Normal Range LA ESV SP 4CH (A/L) 17.82 ml - LA ESV SP 2CH (A/L) 33.01 ml - LA ESV BP (A/L) 26.94 ml - LA ESV BP (A/L) index 15.57 ml/m2 - LA ESV SP 4CH (MOD) 17.8 ml - LA ESV SP 2CH (MOD) 30.25 ml - LA ESV BP (MOD) 25.48 ml - LA ESV BP (MOD) index 14.73 ml/m2 - Aortic Valve Name Value Normal Range AV Vmax 0.98 m/sec - AV VTI 20.8 cm - AV peak gradient 3.87 mmHg - AV mean gradient 2.15 mmHg - LVOT diameter 2.14 cm - LVOT Vmax 0.77 m/sec - LVOT VTI 12.22 cm - LVOT peak gradient 2.38 mmHg - LVOT mean gradient 1.25 mmHg - SV LVOT 43.78 ml - JAIME (continuity Vmax) 2.81 cm2 - JAIME (continuity VTI) 2.1 cm2 - Ascending Ao 4.53 cm - Tricuspid Valve Name Value Normal Range TR Vmax 2.78 m/sec - TR peak gradient 31 mmHg - RAP 3 mmHg - RVSP 34 mmHg - Pulmonic Valve/Qp:Qs Name Value Normal Range PV Vmax 0.78 m/sec - PV peak gradient 2.4 mmHg - PV acceleration time 79.92 msec - Wolff/IV: Voiding Method Condom Catheter IV Catheter Type [Left Forearm INT / Saline Lock ] IV Catheter Type [Right Peripheral IV Antecubital] Active Medications - Current Medications Current Medications: Generic Name Dose Route Start Last Admin Trade Name Freq PRN Reason Stop Dose Admin Acetaminophen 650 mg 02/18/20 18:20 03/01/20 11:05 Tylenol PO 650 mg Q4H PRN Administration Pain, Mild (1-3) Amlodipine Besylate 10 mg 02/21/20 15:00 03/01/20 11:04 Amlodipine PO 10 mg QDAY CELE Administration Atorvastatin Calcium 40 mg 02/18/20 22:00 02/29/20 21:44 Lipitor PO 40 mg QHS CELE Administration Bisacodyl 10 mg 02/18/20 18:20 Dulcolax [place] QDAY PRN Constipation Clopidogrel Bisulfate 75 mg 02/19/20 10:00 03/01/20 11:04 Plavix PO 75 mg QDAY CELE Administration Lisinopril 2.5 mg 02/25/20 10:00 03/01/20 11:01 Zestril PO 2.5 mg QDAY CELE Administration Magnesium Hydroxide 30 ml 02/18/20 18:20 Milk Of Magnesia PO Q4H PRN Constipation Metoclopramide HCl 5 mg 02/18/20 18:20 Reglan PO Q6H PRN Nausea And Vomiting Metoprolol Succinate 50 mg 02/21/20 10:00 03/01/20 11:00 Metoprolol Xl PO 50 mg QDAY CELE Administration Ondansetron HCl 4 mg 02/18/20 18:20 02/26/20 23:34 Zofran IV 4 mg Q8H PRN Administration Nausea And Vomiting Polyethylene Glycol 17 gm 02/23/20 11:00 03/01/20 11:01 Miralax 3350 PO 17 gm QDAY CELE Administration Promethazine HCl 25 mg 02/18/20 18:20 Phenergan [place] Q6H PRN Nausea And Vomiting Sodium Chloride 10 ml 02/18/20 18:20 Sodium Chloride Flush Syringe 10 Ml IV PRN PRN LINE FLUSH Tamsulosin HCl 0.4 mg 02/23/20 10:00 03/01/20 11:04 Flomax PO 0.4 mg QDAY CELE Administration Nutrition/Malnutrition Assess - Dietary Evaluation Nutrition/Malnutrition Findings: Nutrition Notes Start: 02/24/20 12:05 Freq: Status: Active Protocol: Document 02/29/20 12:47 MARTHA (Rec: 02/29/20 12:55 BK [id number]) Co-Sign 02/29/20 12:47 LM Nutrition Notes Initial or Follow up Reassessment Current Diagnosis Hypertension,Heart Failure, Stroke Other Pertinent Diagnosis cerebral atherosclerosis, pulmonary fibrosis, dementia Current Diet Cardiac Labs/Tests Na 134 BUN 32 Pertinent Medications Reviewed Height 5 ft 8 in Weight 62.1 kg [place] Body Weight (kg) 70.00 BMI 20.8 Weight Status Underweight Subjective/Other Information F/U for intakes. Pt reports tolerating and enjoying ONS. Pt continues to have poor PO intakes. DI observed 0% breakfast consumed. 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 No Is Patient Ambulatory and/or Out of Bed No REE-([facility]-confined to bed) 1538.112 Calculation Used for Recommendations [facility] [place] Additional Notes Pro: 74-92 g (1.2-1.5 g/kg) Fluid: 1 ml/kcal Nutrition Intervention Change Diet Order: Continue Cardiac diet Add Supplement/Snack (indicate name/kcal Ensure Enlive [place] BID /protein ) Provides kCal: 700 Provides Protein (gm) 40 Goal #1 Meet at least 80% energy and protein needs via PO and ONS Goal #2 Wt gain/maintenance Anticipated Discharge Needs: Cardiac diet and ONS PRN Follow-Up By: 03/05/20 Additional Comments F/U for PO/ONS intakes
--- NOTE | 2020-03-02 09:46 | Progress Note ---
Assessment and Plan Assessment and plan: -- Acute CVA (cerebrovascular accident) Current Visit: Yes Status: Acute Plan to address problem: Patient stable on medications left hemiplegia improved MRI brain shows subacute infarct in the right basal ganglia. Echo - negative bubble study. Continue Plavix(patient is allergic to aspirin) and statins PT - recs subacute rehab awaiting placement Neurology evaluation appreciated --Hypertension Current Visit: Yes Status: Chronic Plan to address problem: Continue amlodipine -- Acute kidney injury Current Visit: Yes Status: Resolved Plan to address problem: Improved Secondary to vasomotor nephropathy. Resolved --Systolic heart failure Current Visit: Yes Status: Acute Plan to address problem: Continue current management Afterload reduction with ACEI Toprol low dose Cardiology follow up after discharge -- DVT prophylaxis Current Visit: Yes Status: Acute Plan to address problem: On heparin and GI prophylaxis -- Discharge planning issues Current Visit: Yes Status: Acute Plan to address problem: Dc when insurance approved transfer to facility 03/02/2020. Awaiting placement, Dc when insurance approved transfer to facility. COVID-19 negative-02/24/2020. History Interval history: No new issues overnight. Hospitalist Physical - Constitutional Vitals: Temp Pulse Resp BP Pulse Ox 98.0 F 86 20 116/67 98 03/02/20 07:24 03/02/20 07:24 03/02/20 07:24 03/02/20 07:24 03/02/20 07:24 General appearance: Present: no acute distress, well-nourished - EENT Eyes: Present: PERRL, EOM intact ENT: hearing intact, clear oral mucosa, dentition normal - Neck Neck: Present: supple, normal ROM - Respiratory Respiratory effort: normal Respiratory: bilateral: CTA - Cardiovascular Rhythm: regular Heart Sounds: Present: S1 & S2. Absent: gallop, rub - Extremities Extremities: no ischemia, No edema, Full ROM - Abdominal General gastrointestinal: soft, non-tender, non-distended, normal bowel sounds - Integumentary Integumentary: Present: clear, warm, dry - Neurologic Neurologic: CNII-XII intact, moves all extremities HEART Score - HEART Score Troponin: Troponin T < 0.010 ng/mL (0.00-0.029) 02/18/20 17:37 Results - Labs CBC & Chem 7: 02/25/20 17:09 02/25/20 17:09 Labs: Laboratory Last Values WBC 7.6 K/mm3 (4.5-11.0) 02/25/20 17:09 RBC 3.72 M/mm3 (3.65-5.03) 02/25/20 17:09 Hgb 11.3 gm/dl (11.8-15.2) L 02/25/20 17:09 Hct 33.4 % (35.5-45.6) L 02/25/20 17:09 MCV 90 fl (84-94) 02/25/20 17:09 MCH 30 pg (28-32) 02/25/20 17:09 MCHC 34 % (32-34) 02/25/20 17:09 RDW 15.1 % (13.2-15.2) 02/25/20 17:09 Plt Count 166 K/mm3 (140-440) 02/25/20 17:09 Lymph % (Auto) 11.2 % (13.4-35.0) L 02/25/20 17:09 Rooks % (Auto) 8.1 % (0.0-7.3) H 02/25/20 17:09 Eos % (Auto) 1.9 % (0.0-4.3) 02/25/20 17:09 Baso % (Auto) 0.5 % (0.0-1.8) 02/25/20 17:09 Lymph # (Auto) 0.9 K/mm3 (1.2-5.4) L 02/25/20 17:09 Rooks # (Auto) 0.6 K/mm3 (0.0-0.8) 02/25/20 17:09 Eos # (Auto) 0.1 K/mm3 (0.0-0.4) 02/25/20 17:09 Baso # (Auto) 0.0 K/mm3 (0.0-0.1) 02/25/20 17:09 Seg Neutrophils % 78.3 % (40.0-70.0) H 02/25/20 17:09 Seg Neutrophils # 6.0 K/mm3 (1.8-7.7) 02/25/20 17:09 PT 12.9 Sec. (12.2-14.9) 02/18/20 17:37 INR 0.95 (0.87-1.13) 02/18/20 17:37 APTT 32.8 Sec. (24.2-36.6) 02/18/20 17:37 Thrombin Time 16.0 Sec. (15.1-19.6) 02/18/20 17:37 Sodium 134 mmol/L (137-145) L 02/25/20 17:09 Potassium 4.1 mmol/L (3.6-5.0) 02/25/20 17:09 Chloride 99.9 mmol/L (98-107) 02/25/20 17:09 Carbon Dioxide 24 mmol/L (22-30) D 02/25/20 17:09 Anion Gap 14 mmol/L 02/25/20 17:09 BUN 32 mg/dL (9-20) H 02/25/20 17:09 Creatinine 1.2 mg/dL (0.8-1.3) 02/25/20 17:09 Estimated GFR 57 ml/min 02/25/20 17:09 BUN/Creatinine Ratio 27 % 02/25/20 17:09 Glucose 102 mg/dL (75-100) H 02/25/20 17:09 POC Glucose 79 (70-105) 02/20/20 08:07 Calcium 9.0 mg/dL (8.4-10.2) 02/25/20 17:09 Magnesium 1.80 mg/dL (1.7-2.3) 02/25/20 17:09 Total Bilirubin 0.30 mg/dL (0.1-1.2) 02/25/20 17:09 AST 11 units/L (5-40) 02/25/20 17:09 ALT 7 units/L (7-56) 02/25/20 17:09 Alkaline Phosphatase 90 units/L (35-129) 02/25/20 17:09 Troponin T < 0.010 ng/mL (0.00-0.029) 02/18/20 17:37 Total Protein 6.0 g/dL (6.3-8.2) L 02/25/20 17:09 Albumin 3.1 g/dL (3.9-5) L 02/25/20 17:09 Albumin/Globulin Ratio 1.1 % 02/25/20 17:09 Triglycerides 86 mg/dL (2-149) 02/21/20 07:40 Cholesterol 152 mg/dL (50-199) 02/21/20 07:40 LDL Cholesterol Direct 95 mg/dL (50-130) 02/21/20 07:40 HDL Cholesterol 50 mg/dL (40-59) 02/21/20 07:40 Cholesterol/HDL Ratio 3.04 % 02/21/20 07:40 Coronavirus (PCR) Negative (Negative) 02/24/20 10:00 - Diagnostic Impressions Diagnostic Impressions: Echocardiogram 02/18/20 18:21 Transthoracic Echocardiogram Indication: Stroke BP: 128/77 HR: 86 Conclusions *The left ventricular size is mild to moderately dilated. *Mild concentric left ventricular hypertrophy is observed. *Global left ventricular systolic function is moderate to severely decreased. *The estimated ejection fraction is 30-35%. *There is mild dilatation of the ascending aorta which measures 4.5 cm. The aortic root size is normal. *There is mild aortic regurgitation. *There is mild mitral regurgitation. *There is mild tricuspid regurgitation. *There is evidence of mild pulmonary hypertension. *The right ventricular systolic pressure is calculated at 34 mmHg. *A patent foramen ovale is not demonstrated by agitated saline contrast. Findings Left Ventricle: The left ventricular size is mild to moderately dilated. Mild concentric left ventricular hypertrophy is observed. Global left ventricular systolic function is moderate to severely decreased. The estimated ejection fraction is 30-35%. Left Atrium: The left atrium is mildly dilated. Right Ventricle: The right ventricle is slightly dilated. The right ventricular global systolic function is normal. Right Atrium: The right atrial cavity size is normal. A patent foramen ovale is not demonstrated by agitated saline contrast. Aortic Valve: The aortic valve is trileaflet. The aortic valve leaflets are mildly thickened. There is mild aortic regurgitation. There is no evidence of aortic stenosis. Mitral Valve: The mitral valve leaflets are mildly thickened. There is mild mitral regurgitation. There is no evidence of mitral stenosis. Tricuspid Valve: There is mild tricuspid regurgitation. The right ventricular systolic pressure is calculated at 34 mmHg. There is evidence of mild pulmonary hypertension. Pulmonic Valve: There is mild pulmonic regurgitation. Pericardium: There is no pericardial effusion. Aorta: There is mild dilatation of the ascending aorta. There is no dilatation of the aortic root. Venous: The inferior vena cava appears normal in size. Contrast: Intravenous agitated saline contrast was used to assess intracardiac shunting. Measurements Chambers 2D Name Value Normal Range IVSd (2D) 1 cm (0.6 - 1.1) LVPWd (2D) 0.97 cm (0.6 - 1.1) LVIDd (2D) 4.88 cm (3.7 - 5.6) LVIDs (2D) 3.72 cm (2 - 3.8) LV FS (2D) 23.84 % - EF Teichholz (2D) 47.42 % - Ao root diameter (2D) 3.55 cm (2 - 3.7) Volumes/Mass Name Value Normal Range LA ESV SP 4CH (A/L) 17.82 ml - LA ESV SP 2CH (A/L) 33.01 ml - LA ESV BP (A/L) 26.94 ml - LA ESV BP (A/L) index 15.57 ml/m2 - LA ESV SP 4CH (MOD) 17.8 ml - LA ESV SP 2CH (MOD) 30.25 ml - LA ESV BP (MOD) 25.48 ml - LA ESV BP (MOD) index 14.73 ml/m2 - Aortic Valve Name Value Normal Range AV Vmax 0.98 m/sec - AV VTI 20.8 cm - AV peak gradient 3.87 mmHg - AV mean gradient 2.15 mmHg - LVOT diameter 2.14 cm - LVOT Vmax 0.77 m/sec - LVOT VTI 12.22 cm - LVOT peak gradient 2.38 mmHg - LVOT mean gradient 1.25 mmHg - SV LVOT 43.78 ml - JAIME (continuity Vmax) 2.81 cm2 - JAIME (continuity VTI) 2.1 cm2 - Ascending Ao 4.53 cm - Tricuspid Valve Name Value Normal Range TR Vmax 2.78 m/sec - TR peak gradient 31 mmHg - RAP 3 mmHg - RVSP 34 mmHg - Pulmonic Valve/Qp:Qs Name Value Normal Range PV Vmax 0.78 m/sec - PV peak gradient 2.4 mmHg - PV acceleration time 79.92 msec - Wolff/IV: Voiding Method Condom Catheter IV Catheter Type [Left Forearm INT / Saline Lock ] IV Catheter Type [Right Peripheral IV Antecubital] Active Medications - Current Medications Current Medications: Generic Name Dose Route Start Last Admin Trade Name Freq PRN Reason Stop Dose Admin Acetaminophen 650 mg 02/18/20 18:20 03/01/20 11:05 Tylenol PO 650 mg Q4H PRN Administration Pain, Mild (1-3) Amlodipine Besylate 10 mg 02/21/20 15:00 03/01/20 11:04 Amlodipine PO 10 mg QDAY CELE Administration Atorvastatin Calcium 40 mg 02/18/20 22:00 03/01/20 21:29 Lipitor PO 40 mg QHS CELE Administration Bisacodyl 10 mg 02/18/20 18:20 Dulcolax PA QDAY PRN Constipation Clopidogrel Bisulfate 75 mg 02/19/20 10:00 03/01/20 11:04 Plavix PO 75 mg QDAY CELE Administration Lisinopril 2.5 mg 02/25/20 10:00 03/01/20 11:01 Zestril PO 2.5 mg QDAY CELE Administration Magnesium Hydroxide 30 ml 02/18/20 18:20 Milk Of Magnesia PO Q4H PRN Constipation Metoclopramide HCl 5 mg 02/18/20 18:20 Reglan PO Q6H PRN Nausea And Vomiting Metoprolol Succinate 50 mg 02/21/20 10:00 03/01/20 11:00 Metoprolol Xl PO 50 mg QDAY CELE Administration Ondansetron HCl 4 mg 02/18/20 18:20 02/26/20 23:34 Zofran IV 4 mg Q8H PRN Administration Nausea And Vomiting Polyethylene Glycol 17 gm 02/23/20 11:00 03/01/20 11:01 Miralax 3350 PO 17 gm QDAY CELE Administration Promethazine HCl 25 mg 02/18/20 18:20 Phenergan PA Q6H PRN Nausea And Vomiting Sodium Chloride 10 ml 02/18/20 18:20 Sodium Chloride Flush Syringe 10 Ml IV PRN PRN LINE FLUSH Tamsulosin HCl 0.4 mg 02/23/20 10:00 03/01/20 11:04 Flomax PO 0.4 mg QDAY CELE Administration Nutrition/Malnutrition Assess - Dietary Evaluation Nutrition/Malnutrition Findings: Nutrition Notes Start: 02/24/20 12:05 Freq: Status: Active Protocol: Document 02/29/20 12:47 MARTHA (Rec: 02/29/20 12:55 MARTHA [id number]) Co-Sign 02/29/20 12:47 LM Nutrition Notes Initial or Follow up Reassessment Current Diagnosis Hypertension,Heart Failure, Stroke Other Pertinent Diagnosis cerebral atherosclerosis, pulmonary fibrosis, dementia Current Diet Cardiac Labs/Tests Na 134 BUN 32 Pertinent Medications Reviewed Height 5 ft 8 in Weight 62.1 kg [place] Body Weight (kg) 70.00 BMI 20.8 Weight Status Underweight Subjective/Other Information F/U for intakes. Pt reports tolerating and enjoying ONS. Pt continues to have poor PO intakes. DI observed 0% breakfast consumed. 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 No Is Patient Ambulatory and/or Out of Bed No REE-([place]-St[place] Jeor-confined to bed) 1538.112 Calculation Used for Recommendations [place] Jeor Additional Notes Pro: 74-92 g (1.2-1.5 g/kg) Fluid: 1 ml/kcal Nutrition Intervention Change Diet Order: Continue Cardiac diet Add Supplement/Snack (indicate name/kcal Ensure Enlive [place] BID /protein ) Provides kCal: 700 Provides Protein (gm) 40 Goal #1 Meet at least 80% energy and protein needs via PO and ONS Goal #2 Wt gain/maintenance Anticipated Discharge Needs: Cardiac diet and ONS PRN Follow-Up By: 03/05/20 Additional Comments F/U for PO/ONS intakes
[2020-03-02] MEDS: POLYETHYLENE GLYCOL 3350 17 GM POWDER PO SCH (11:03)
[2020-03-02] MEDS: METOPROLOL SUCCINATE XL 50 MG TAB PO SCH (11:03)
[2020-03-02] MEDS: LISINOPRIL 5 MG TAB PO SCH (11:04)
[2020-03-02] MEDS: amLODIPine 10 MG TAB PO SCH (11:04)
[2020-03-02] MEDS: CLOPIDOGREL 75 MG TAB PO SCH (11:04)
[2020-03-02] MEDS: TAMSULOSIN 0.4 MG CAP PO SCH (11:05)
[2020-03-02] MEDS: ACETAMINOPHEN 325 MG TAB PO PRN (11:05)
[2020-03-02] MEDS: HYPROMELLOSE 0.5% OPHTH SOLN 15 ML OU PRN (20:24)
[2020-03-03] MEDS ORDERED: NAPROXEN 375 MG TAB PO PRN (09:03)
--- NOTE | 2020-03-03 09:03 | Discharge Summary ---
Providers - Providers Date of Admission: 02/19/20 12:00 Date of discharge: 03/03/20 Attending physician: RYAN HERNÁNDEZ 02/18/20 18:20 Occupational Therapy Evaluate and Treat [CONS] Routine Comment: Reason For Exam: Neuro deficits Physical Therapy Evaluation and Treat [CONS] Routine Comment: Reason For Exam: Neuro deficits 02/18/20 18:21 Speech Therapy Evaluation and Treat [CONS] Routine Reason For Exam: cva 02/20/20 07:25 Consult to Physician [CONS] Routine Comment: Consulting Provider: STEPAN FRANCE Physician Instructions: Reason For Exam: CVA 02/21/20 14:10 Consult to Physician [CONS] Routine Comment: Consulting Provider: ELVIS GARCES Physician Instructions: Reason For Exam: CVA Primary care physician: HOME HEALTH CLINICAL SUPERVISOR Hospitalization Reason for admission: CVA Condition: Stable Hospital course: 84 yo male, right-handed, with htn, dementia, presented outside the tPA window with left-sided weakness. He also suffered a fall prior to arrival to the ED. the patient was admitted with diagnosis of acute CVA, acute kidney injury secondary to vasomotor nephropathy and chronic systolic heart failure. MRI was completed which revealed subacute infarct to the right basal ganglia. Patient also had an echocardiogram which was a negative bubble study. Neurology saw the patient in consultation and recommended statins and Plavix as the patient is allergic to aspirin. Physical therapy also saw the patient in consultation and recommended subacute rehab. With regards to the acute kidney injury, patient received IV fluid hydration with normalization of the creatinine from 1.7 down to 1.2. Case management was consulted with regards to the placement to subacute rehab. However, patient was denied authorization by insurance and a [id number] was completed by per case management that was still denied placement. Therefore, patient is to be discharged home to family with home health. I spoke with the patient's family along with case management regarding discharge planning/needs. Patient family denied any needs. Dedicated discharge time 32 minutes. Disposition: -01 TO HOME OR SELFCARE Time spent for discharge: 35 - Discharge Diagnoses (1) Acute CVA (cerebrovascular accident) Status: Acute (2) Acute kidney injury Status: Acute (3) Cerebral atherosclerosis Status: Acute (4) Vascular dementia Status: Acute Qualifiers: Dementia behavioral disturbance: without behavioral disturbance Qualified Code(s): F01.50 - Vascular dementia without behavioral disturbance (5) Hypertension Status: Chronic Qualifiers: Hypertension type: essential hypertension Qualified Code(s): I10 - Essential (primary) hypertension Core Measure Documentation - Palliative Care Palliative Care/ Comfort Measures: Not Applicable - Core Measures Any of the following diagnoses?: none Exam - Constitutional Vitals: Temp Pulse Resp BP Pulse Ox 97.9 F 86 18 108/57 97 03/03/20 07:37 03/03/20 07:37 03/03/20 07:37 03/03/20 07:37 03/03/20 07:37 General appearance: Present: no acute distress, well-nourished - EENT Eyes: Present: PERRL ENT: hearing intact, clear oral mucosa - Neck Neck: Present: supple, normal ROM - Respiratory Respiratory effort: normal Respiratory: bilateral: CTA - Cardiovascular Heart Sounds: Present: S1 & S2. Absent: rub, click - Extremities Extremities: pulses symmetrical, No edema Peripheral Pulses: within normal limits - Abdominal General gastrointestinal: Present: soft, non-tender, non-distended, normal bowel sounds Male genitourinary: Present: normal - Integumentary Integumentary: Present: clear, warm, dry - Musculoskeletal Musculoskeletal: gait normal, strength equal bilaterally - Psychiatric Psychiatric: appropriate mood/affect, intact judgment & insight - Neurologic Neurologic: CNII-XII intact, moves all extremities Plan Activity: advance as tolerated Weight Bearing Status: Weight Bear as Tolerated Diet: low fat, low cholesterol, low salt Special Instructions: physical therapy Follow up with: SUSAN YUAN MD [Primary Care Provider] - 7 Days ELVIS GARCES MD [Staff Physician] - 7 Days Prescriptions: amLODIPine 10 mg PO QDAY #30 tablet Tamsulosin [Flomax] 0.4 mg PO QDAY #30 capsule AtorvaSTATin [Lipitor] 40 mg PO QHS #30 tablet Metoprolol [Lopressor TAB] 50 mg PO DAILY #30 Clopidogrel [Plavix] 75 mg PO QDAY #30 tablet lisinopriL [Zestril TAB] 2.5 mg PO QDAY #30 tablet
[2020-03-03] MEDS: HYPROMELLOSE 0.5% OPHTH SOLN 15 ML OU PRN (09:38)
[2020-03-03] MEDS: TAMSULOSIN 0.4 MG CAP PO SCH (09:46)
[2020-03-03] MEDS: CLOPIDOGREL 75 MG TAB PO SCH (09:46)
[2020-03-03] MEDS: LISINOPRIL 5 MG TAB PO SCH (09:46)
[2020-03-03] MEDS: METOPROLOL SUCCINATE XL 50 MG TAB PO SCH (09:46)
[2020-03-03] MEDS: POLYETHYLENE GLYCOL 3350 17 GM POWDER PO SCH (09:47)
[2020-03-03] MEDS: amLODIPine 10 MG TAB PO SCH (09:47)
[2020-03-03 12:04] VITALS: BP 107/55
== END 2020-03-03 18:53 | disposition home health service (06) | DRG 64 ==
LOC: ED 17:19 → 4A 18:34 → OBSVTOIN 02-19 12:00
PROVIDERS: ADMIT Internal Medicine; ATTEND Hospitalist
DX: I63.9 Cerebral infarction, unspecified (principal); N17.0 Acute kidney failure with tubular necrosis; F17.213 Nicotine dependence, cigarettes, with withdrawal; G81.94 Hemiplegia, unspecified affecting left nondominant side; I50.22 Chronic systolic (congestive) heart failure; Z82.49 Family history of ischemic heart disease and other diseases of the circulatory system; J84.10 Pulmonary fibrosis, unspecified; F01.50 Vascular dementia, unspecified severity, without behavioral disturbance, psychotic disturbance, mood disturbance, and anxiety; I67.2 Cerebral atherosclerosis; Z71.89 Other specified counseling; R29.707 NIHSS score 7; I11.0 Hypertensive heart disease with heart failure; Z20.828 Contact with and (suspected) exposure to other viral communicable diseases; Z88.6 Allergy status to analgesic agent; Z88.1 Allergy status to other antibiotic agents
CPT/HCPCS: 36415; 70450; 70551; 80048; 80053; 80061; 82962; 83735; 84484; 85025; 85610; 85670; 85730; 93005; 93306; 93880; 96361; 96365; 96375; G0378; A9270-GY; J2060; J2405; J7030; U0003